=== PATIENT | male | born 1955 | race African-American/Black ===

== ENCOUNTER 2017-05-25 22:52 | Inpatient (IN) | payer OTHER ==
[2017-05-25] MEDS ORDERED: ETOMIDATE 20 MG/10 ML VIAL ONE (23:05)
[2017-05-25 23:09] VITALS: O2SAT 100
[2017-05-25] MEDS ORDERED: ceFAZolin 2 GM PREMIX 50 ML ONE (23:09)
[2017-05-25] MEDS ORDERED: PROPOFOL 1000 MG/100 ML INJ 100 ML ONE (23:18)
[2017-05-25] MEDS ORDERED: MIDAZOLAM HCL 5 MG/ML VIAL (1 ML) ONE (23:24)
[2017-05-25 23:25] LABS: I-STAT POTASSIUM 4.2 MMOL/L (3.5-4.9)
[2017-05-25 23:33] LABS: AUTOMATED NEUTROPHIL # 6.1 TH/MM3 (1.8-7.7); BASOPHIL # 0.1 TH/MM3 (0-0.2); BASOPHIL % 1.1 % (0.0-2.0); EOSINOPHIL # 0.1 TH/MM3 (0-0.4); EOSINOPHIL % 0.6 % (0.0-4.0); HEMATOCRIT 42.8 % (39.0-51.0); LYMPH % 37.4 % (9.0-44.0); LYMPHOCYTE # 4.1 TH/MM3 (1.0-4.8); MEAN CELL VOLUME 93.1 FL (80.0-100.0); MEAN CORPUSCULAR HEMOGLOBIN 32.6 PG (27.0-34.0); MEAN CORPUSCULAR HGB CONC 35.1 % (32.0-36.0); MONO % 5.1 % (0.0-8.0); NEUT % 55.8 % (16.0-70.0); PLATELET COUNT 175 TH/MM3 (150-450); RED CELL DISTRIBUTION WIDTH 14.3 % (11.6-17.2); WHITE BLOOD COUNT 10.9 TH/MM3 (4.0-11.0)
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
[2017-05-25] MEDS ORDERED: IOHEXOL 350 MG/ML 10 ML VIAL (for RAD DIAG) IV ONE (23:36)
[2017-05-25 23:39] LABS: HEMO FLAGS AUTO DIFF
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
[2017-05-25 23:44] LABS: APTT (PATIENT) 22.4 SEC (24.3-30.1); PROTHROMBIN TIME - PATIENT 10.7 SEC (9.8-11.6)
[2017-05-25] MEDS ORDERED: MISCELLANEOUS NURSING INFORMATION XX SCH (23:45)
[2017-05-25] MEDS ORDERED: ENALAPRILAT 1.25 MG/ML VIAL IV PRN (23:45)
[2017-05-25] MEDS ORDERED: CHLORHEXIDINE GLUCONATE 2 % 1 PACK (2 CLOTHS) TOP PRN (23:45)
[2017-05-25] MEDS ORDERED: SODIUM CHLORIDE 0.9% FLUSH 10 ML FLUSH IV FLUSH PRN (23:45)
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
[2017-05-26] VITALS (17 sets, daily range): BP systolic 101–155; BP diastolic 61–78; PULSE 60–123; RESP 16–30; TEMP 97.3–100.9; O2SAT 10–100
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
[2017-05-26 00:13] LABS: PLATELET ESTIMATE SMEAR NORMAL (NORMAL); PLATELET MORPHOLOGY NORMAL (NORMAL); SCAN/DIFF AUTO DIFF CONFIRMED
--- NOTE | 2017-05-26 00:28 | PD.OP ---
Operative Report Date of Surgery: May 25, 2017 Preoperative Diagnosis: Severe traumatic brain injury with small right subdural hemorrhage along with the multiple contusions Postoperative Diagnosis: Same Procedure: Right frontal twist drill hole Marichuy intracranial pressure monitor placement Anesthesia: Local with sedation Surgeon: Trevon Duran M.D. Director Of Retail Marketing(s): None Operation and Findings: Following administration of Diprivan drip with the oxygen saturation and hemodynamic monitoring in the intensive care unit, the right frontal region was shaved and the prep with chlor prep and sterilely draped. Using landmarks of 11 cm behind the nasion and 3 cm to the right of the midline, a 1 cm scalp incision was made after infiltrating with 1% lidocaine with epinephrine solution. With a handheld drill a twist drill hole was made in the underlying dura penetrated with a blunt probe. The Marichuy bolt was then secured to the skull. The fiberoptic catheter zeroed and passed into the subarachnoid space with an opening pressure of 15 mmHg noted. A sterile dressing was applied. There were no complications and blood loss was less than 5 cc. Trevon Duran MD May 26, 2017 00:28
[2017-05-26] MEDS ORDERED: NOREPINEPHRINE 4 MG/4 ML AMP ONE (00:33)
[2017-05-26] MEDS ORDERED: NOREPINEPHRINE-DEXTROSE DRIP 250 ML IV ONE (00:33)
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
[2017-05-26] MEDS ORDERED: levETIRAcetam 1000 MG INJ 100 ML IV ONE (00:45)
[2017-05-26] MEDS ORDERED: TERBUTALINE INJ 1 MG/ML AMP SQ PRN ×2 (00:45→10:15)
[2017-05-26] MEDS ORDERED: MANNITOL INJ 50 ML ONE (01:17)
[2017-05-26] MEDS ORDERED: MIDAZOLAM HCL 5 MG/ML VIAL (1 ML) ONE (01:19)
[2017-05-26] MEDS ORDERED: SODIUM CHLORIDE 23.4% INJ 120 MEQ in SYRINGE/BAG 1 EA IV STA (01:28)
[2017-05-26] MEDS ORDERED: MIDAZOLAM HCL 5 MG/ML VIAL (1 ML) IV STA (01:29)
[2017-05-26] MEDS ORDERED: MANNITOL 12.5 GM/50 ML VIAL IV ONE ×3 (01:30→11:00)
[2017-05-26] MEDS: SODIUM CHLOR 0.9% 1000 ML INJ 1,000 ML IV SCH ×3 (02:00→10:53)
[2017-05-26] MEDS ORDERED: 3% SALINE INJ 500 ML IV ONE (02:00)
[2017-05-26 02:22] LABS: BLOOD GAS BASE EXCESS -4.6 mmol/L (-2-2); BLOOD GAS CARBOXYHEMOGLOBIN 1.9 % (0-4); BLOOD GAS HCO3 22 mmol/L (22-26); BLOOD GAS METHEMOGLOBIN 1.1 % (0-2); BLOOD GAS O2 HGB SATURATION 77 % (90-100); BLOOD GAS OXYGEN CONTENT 11.3 Vol % (12.0-20.0); BLOOD GAS PCO2 52 mmHg (38-42); BLOOD GAS PO2 51 mmHg (61-120); BLOOD GAS TOTAL HGB 10.4 G/DL (12.0-16.0); OXYGEN DEVICE VENTILATOR; TEMP CORR TO 98.6
[2017-05-26 02:23] LABS: DRAW SITE ALINE; FIO2 100 %; STAT YES; ULNAR PULSE PRESENT
[2017-05-26] MEDS ORDERED: SODIUM BICARBONATE 8.4% INJ 50 ML ONE (02:38)
[2017-05-26] MEDS ORDERED: PROPOFOL 1000 MG/100 ML INJ 100 ML ONE (02:40)
[2017-05-26] MEDS ORDERED: GLUCAGON 1 MG/ML VIAL OTHER PRN ×2 (02:45→08:15)
[2017-05-26] MEDS ORDERED: DEXTROSE 50% IN WATER 50 ML VIAL(D50) IV PRN ×2 (02:45→08:15)
--- NOTE | 2017-05-26 02:54 | RADRPT ---
EXAM DATE/TIME: 05/26/2017 01:57 [facility] COMPARISON: CHEST SINGLE AP, May 25, 2017, 22:55. INDICATIONS : Trauma alert patient, closed head injury. Central line placement. MEDICAL HISTORY : None. SURGICAL HISTORY : None. ENCOUNTER: Subsequent ACUITY: 1 week PAIN SCORE: Non-responsive. LOCATION: Bilateral chest FINDINGS: Right subclavian central venous catheter is noted and the tip extends across midline curving inferior ly at the level of the aortic arch. Please confirm venous placement. There degenerative changes of th e spine. Patchy airspace disease at the left lung base noted. Left apical bullous emphysematous terry es are noted. Scapular fracture and left-sided rib fractures are not well visualized. CONCLUSION: 1. Right subclavian central venous catheter is noted as above. Andrae Anderson MD on May 26, 2017 at 2:49 Board Certified Radiologist. This report was verified electronically.
--- NOTE | 2017-05-26 02:59 | PD.PROCEDR ---
Procedure Note Procedure Central line placement A time-out was completed verifying correct patient, procedure, site, positioning , and special equipment if applicable. The patient was placed in a dependent position appropriate for central line placement based on the vein to be cannulated. The patients right shoulder was prepped and draped in sterile fashion. 1% Lidocaine was used to anesthetize the surrounding skin area. A triple lumen 9-[place] Cordis catheter was introduced into the the right subclavian vein using the Seldinger technique. The catheter was threaded smoothly over the guide wire and appropriate blood return was obtained. Each lumen of the catheter was evacuated of air and flushed with sterile saline. The catheter was then sutured in place to the skin and a sterile dressing applied. Perfusion to the extremity distal to the point of catheter insertion was checked and found to be adequate. Estimated Blood Loss: 1ml The patient tolerated the procedure well and there were no complications. Chacho Blue MD May 26, 2017 02:59
[2017-05-26] MEDS ORDERED: NOREPINEPHRINE INJ 4 MG in SODIUM CHLOR 0.9% 250 ML INJ 246 ML IV SCH (03:00)
--- NOTE | 2017-05-26 03:00 | PD.PROCEDR ---
Procedure Note Procedure Arterial line placement A time-out was completed verifying correct patient, procedure, site, positioning , and special equipment if applicable. Allens test was performed to ensure adequate perfusion. The patients right wrist was prepped and draped in sterile fashion. 1% Lidocaine was used to anesthetize the area. A 18G Arrow arterial line was introduced into the radial artery. The catheter was threaded over the guide wire and the needle was removed with appropriate pulsatile blood return. The catheter was then sutured in place to the skin and a sterile dressing applied. Perfusion to the extremity distal to the point of catheter insertion was checked and found to be adequate. Estimated Blood Loss: 1ml The patient tolerated the procedure well and there were no complications. Chacho Blue MD May 26, 2017 03:00
[2017-05-26] MEDS: fentaNYL DRIP 250 ML IV SCH ×3 (03:02→19:08)
[2017-05-26] MEDS: NOREPINEPHRINE INJ 4 MG in SODIUM CHLOR 0.9% 250 ML INJ 246 ML IV SCH ×5 (03:08→20:59)
[2017-05-26] MEDS: CISATRACURIUM INJ 100 MG in SODIUM CHLOR 0.9% 250 ML INJ 240 ML IV SCH ×4 (03:09→20:59)
[2017-05-26] MEDS: VASOPRESSIN INJ 40 UNITS in DEXTROSE 5% IN WATER 100ML INJ 98 ML IV SCH ×4 (03:09→15:17)
[2017-05-26] MEDS: PANTOPRAZOLE SODIUM 40 MG VIAL IVP SCH (03:10)
[2017-05-26 03:57] LABS: AUTOMATED NEUTROPHIL # 12.1 TH/MM3 (1.8-7.7); BASOPHIL # 0.1 TH/MM3 (0-0.2); BASOPHIL % 0.7 % (0.0-2.0); EOSINOPHIL % 0.1 % (0.0-4.0); HEMATOCRIT 30.8 % (39.0-51.0); HEMO FLAGS DIFF FINAL; LYMPH % 7.7 % (9.0-44.0); LYMPHOCYTE # 1.1 TH/MM3 (1.0-4.8); MEAN CORPUSCULAR HEMOGLOBIN 30.9 PG (27.0-34.0); MEAN CORPUSCULAR HGB CONC 33.6 % (32.0-36.0); MONO % 4.6 % (0.0-8.0); NEUT % 86.9 % (16.0-70.0); PLATELET COUNT 106 TH/MM3 (150-450); RED BLOOD COUNT 3.34 MIL/MM3 (4.50-5.90); RED CELL DISTRIBUTION WIDTH 13.9 % (11.6-17.2); WHITE BLOOD COUNT 13.9 TH/MM3 (4.0-11.0)
[2017-05-26 03:59] LABS: CRITICAL VALUE YES; VENT SETTINGS PRVC24/550/0.9/+8
[2017-05-26] MEDS: CHLORHEXIDINE GLUCONATE 2 % 1 PACK (2 CLOTHS) TOP SCH (04:00)
[2017-05-26 04:23] LABS: AMPHETAMINE, URINE NEG (NEG); BARBITURATES, URINE NEG (NEG); COCAINE, URINE POS (NEG)
[2017-05-26 04:35] LABS: BICARBONATE 24.1 MEQ/L (21.0-32.0); CALCIUM-PROTEIN CORRECTED 7.8 MG/DL (8.5-10.1); POTASSIUM 4.3 MEQ/L (3.5-5.1); TOTAL BILIRUBIN ADULT 0.6 MG/DL (0.2-1.0)
[2017-05-26 05:22] LABS: BLOOD GAS BASE EXCESS -1.9 mmol/L (-2-2); BLOOD GAS CARBOXYHEMOGLOBIN 1.2 % (0-4); BLOOD GAS HCO3 21 mmol/L (22-26); BLOOD GAS O2 HGB SATURATION 98 % (90-100); BLOOD GAS OXYGEN CONTENT 14.9 Vol % (12.0-20.0); BLOOD GAS PCO2 27 mmHg (38-42); BLOOD GAS PO2 436 mmHg (61-120); TEMP CORR TO 98.6
[2017-05-26 05:23] LABS: CRITICAL VALUE NO; OXYGEN DEVICE VENTILATOR
[2017-05-26 05:24] LABS: DRAW SITE ART LINE; FIO2 100 %; STAT NO; VENT SETTINGS AC 30/600/8PEEP
[2017-05-26] MEDS ORDERED: INSULIN ASPART SUPPLEMENTAL SCALE SQ SCH (07:00)
[2017-05-26] MEDS: PROPOFOL 1000 MG/100 ML IV SCH ×4 (07:02→19:07)
--- NOTE | 2017-05-26 07:55 | PD.ORT.PN ---
Subjective Subjective Remarks 1. Closed left severely comminuted tibia and fibula fractures 2. Extensive displaced and comminuted left scapular fractures 3. Multiple left-sided rib fractures 4. Left T7 transverse process fracture on the left: 5. Fracture through the left occipital condyle and occiput. Left C2 and C7 lateral mass nondisplaced fracture 6. Right sacral fracture with diastasis of the SI joint on the right as well as the pubic symphysis 7. Left L2 and L3 transverse process fractures Pt intubated and sedated. Plan of care discussed in detail with RN. RN reports multiple fluctuations in ICP overnight. Objective Vitals Vital Signs Date Time Temp Pulse Resp B/P Pulse Ox O2 Delivery O2 Flow Rate FiO2 05/26/17 02:51 100 100 05/26/17 00:02 100 100 05/25/17 23:09 100 15.00 100 Result Diagram: 05/26/17 0340 05/26/17 0340 Other Results Laboratory Tests Test 05/25/17 23:06 Prothrombin Time 10.7 SEC (9.8-11.6) Prothromb Time International 1.0 RATIO Ratio Imaging Last Impressions Chest X-Ray 05/26/17 0000 Signed Impressions: Service Date/Time: Friday, May 26, 2017 01:57 - CONCLUSION: 1. Right subclavian central venous catheter is noted as above. Andrae Anderson MD Pelvis X-Ray 05/25/172317 Signed Impressions: Service Date/Time: Thursday, May 25, 2017 22:55 - CONCLUSION: No discrete fracture lucencies. Andrae Anderson MD Head CT 05/25/172317 Signed Impressions: Service Date/Time: Thursday, May 25, 2017 23:25 - CONCLUSION: 1. Intraparenchymal, and extra-axial hemorrhage as described above with slight midline shift. 2. Skull fractures. 3. Left mastoid fluid. 4. Scalp laceration. Andrae Anderson MD Chest CT 05/25/172317 Signed Impressions: Service Date/Time: Thursday, May 25, 2017 23:35 - CONCLUSION: 1. Severe emphysematous changes are noted with bullous emphysematous disease in the upper lobes left greater than right. 2. Patchy pulmonary contusion is suspected. 3. Nonobstructing left renal calculi and bilateral renal cysts. 4. Extensive displaced and comminuted left scapular fractures as well as multiple left- sided rib fractures and T7 transverse process fracture on the left. Andrae Anderson MD Cervical Spine CT 05/25/172317 Signed Impressions: Service Date/Time: Thursday, May 25, 2017 23:26 - CONCLUSION: 1. Fracture through the left occipital condyle and occiput. 2. Left C2 lateral mass nondisplaced fracture. 3. Left sided C7 fractures as described above. Andrae Anderson MD Abdomen/Pelvis CT 05/25/172317 Signed Impressions: Service Date/Time: Thursday, May 25, 2017 23:32 - CONCLUSION: 1. Bilateral renal cysts and nonobstructing left renal calculi. 2. Minimal basilar parenchymal infiltrates at the lung bases. 3. Splenic atrophy. 4. Left L2 and L3 transverse process fractures. 5. Right sacral fracture with diastasis of the SI joint on the right as well as the pubic symphysis. Andrae Anderson MD Tibia/Fibula X-Ray 05/25/17 0000 Signed Impressions: Service Date/Time: Thursday, May 25, 2017 22:55 - CONCLUSION: Heavily comminuted and displaced fractures of the tibia and fibula. Andrae Anderson MD Objective Remarks LLE: In splint and dressing. Swelling and crepitus noted over faria/calf. Calf is soft. Soft tissue edematous,1+. Pedal pulses palpable. Good cap refill. Skin temperature equivocal bilaterally. B/L UE: Warm, good cap refill, no specific areas of swelling noted. Neuro exam unobtainable. Intubated and sedated. Assessment & Plan Problem List: (1) Traumatic closed displaced fracture of shaft of left tibia and fibula (2) Subarachnoid hemorrhage (3) Closed head injury (4) C2 cervical fracture (5) C7 cervical fracture (6) T7 vertebral fracture (7) Traumatic diastasis of symphysis pubis (8) Fracture of left occipital condyle (9) Left scapula fracture (10) Sacral fracture (11) Fracture of occiput (12) Ribs, multiple fractures (13) L2 vertebral fracture (14) L3 vertebral fracture Assessment and Plan 1. Closed left severely comminuted tibia and fibula fractures: It it recommended to proceed forward with surgical management of heavily comminuted left tibia and fibula fractures once medically cleared. This will require surgical management of possible internal versus external fixation. Risks of awaiting surgical management include but are not limited to compartment syndrome, neurovascular compromise and loss of limb. Close monitoring of his lower extremity perfusion and swelling is recommended. Further disposition will be rendered upon completion of the trauma and neuro clearance. 2. Extensive displaced and comminuted left scapular fractures: Non w/b LUE. May consider further imaging once pt stable. Does not appear to involve glenohumeral joint. Non operative at this time. 3. Multiple left-sided rib fractures: Non operative treatment at this time. 4. Left T7 transverse process fracture on the left: Non operative treatment at this time 5. Fracture through the left occipital condyle and occiput. Left C2 and C7 lateral mass nondisplaced fracture: Keep C collar on at all times. 6. Right sacral fracture with diastasis of the SI joint on the right as well as the pubic symphysis: Non operative treatment at this time. 7. Left L2 and L3 transverse process fractures: Non operative treatment at this time. Reyna Jurado May 26, 2017 07:55
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
[2017-05-26] MEDS ORDERED: IOHEXOL 350 MG/ML 10 ML VIAL (for RAD DIAG) IV ONE (08:43)
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
[2017-05-26] MEDS: ARTIFICIAL TEARS OPTH SOLN 15 ML BTL EACH EYE SCH ×3 (09:00→17:29)
[2017-05-26] MEDS ORDERED: CALCIUM GLUCONATE INJ 2 GM in SODIUM CHLORIDE 0.9% INJ 100 ML IV ONE (09:00)
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
[2017-05-26] MEDS: levETIRAcetam INJ 500 MG in SODIUM CHLORIDE 0.9% INJ 100 ML IV SCH ×2 (09:42→20:42)
[2017-05-26] MEDS: MULTIVITAMIN INJ 10 ML, FOLIC ACID INJ 1 MG in SODIUM CHLORID 0.9% 500 ML INJ 500 ML IV SCH (09:44)
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
[2017-05-26] MEDS ORDERED: PHENYLEPHRINE INJ 80 MG in DEXTROSE 5% IN WATE 500 ML INJ 492 ML IV SCH ×2 (11:00)
[2017-05-26] MEDS: PHENYLEPHRINE INJ 80 MG in SODIUM CHLORID 0.9% 500 ML INJ 492 ML IV SCH ×2 (11:13→20:58)
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
[2017-05-26] MEDS: INSULIN ASPART SUPPLEMENTAL SCALE SQ SCH ×3 (12:06→21:16)
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
[2017-05-26] MEDS: BACITRACIN/POLYMYXIN B 15 GM TUBE TOPICAL SCH ×2 (13:12→21:17)
--- NOTE | 2017-05-26 16:13 | OTSOAPIP ---
TIME SESSION COMPLETED: AM TREATMENT TIME: 0 MINS. CHART REVIEWED. CLINICAL HISTORY: PATIENT IS A 62 Y/O Male REFERRED TO OCCUPATIONAL THERAPY WITH A DIAGNOSIS OF CLOSED HEAD INJURY, LEFT TIB-FIB FRACTURE, TRAUMA,. PATIENT SUSTAINED THE FOLLOWING; * INTRAPARENCHYMAL AND EXTRA AXIAL HEMORRHAGE WITH SLIGHT SHIFT * FRACTURE THROUGH THE LEFT OCCIPITAL CONDYLE AND OCCIPITAL * SKULL FRACTURE * LEFT MASTOID FLUID * SCALP LACERATION S/P REPAIR * LEFT DISPLACED SCAPULAR FRACTURE * LEFT C2 & C7 FRACTURES CERVICAL COLLAR PLACEMENT * T7 TRANSVERSE PROCESS FRACTURE ON THE LEFT * L2 & L3 TRANSVERSE PROCESS FRACTURES * LEFT DISPLACED TIBIA & FIBULA FRACTURES * BILATERAL RENAL CYSTS AND NON-OBSTRUCTING LEFT RENAL CALCUL * LEFT SIDED PNEUMOTHROAX VERSUS BOLLOUS EMPHYSEMATOUS DISEASE * SPLENIC ATROPHY PHYSICIAN ORDER STATES: OCCUPATIONAL THERAPY EVALUATE AND TREAT. SURGERY ON THIS ADMISSION: * 05/25/17 RIGHT FRONTAL TWIST DRILL HOLE WITH PLACEMENT OF INTRACRANIAL PRESSURE MONITOR INTERDISCIPLINARY COMMUNICATION: SPOKE WITH NURSING REQUESTED TO HOLD TREATMENT DUE TO INCREASE ICP LEVELS PLAN: WILL SEE PATIENT NEXT TREATMENT DAY Therapist: SURESH CASTELLANOS Signature on file
[2017-05-26] MEDS: 3% SALINE INJ 500 ML IV SCH (17:27)
[2017-05-26] MEDS: DOCUSATE SODIUM 100 MG CAP PO SCH (20:42)
[2017-05-26] MEDS: MAGNESIUM HYDROXIDE SUSP 30 ML CUP PO SCH (20:42)
[2017-05-26 20:45] LABS: BLOOD GAS HCO3 20 mmol/L (22-26); BLOOD GAS METHEMOGLOBIN 0.8 % (0-2); BLOOD GAS O2 HGB SATURATION 98 % (90-100); BLOOD GAS OXYGEN CONTENT 12.5 Vol % (12.0-20.0); BLOOD GAS PCO2 31 mmHg (38-42); BLOOD GAS PO2 167 mmHg (61-120); BLOOD GAS TOTAL HGB 8.9 G/DL (12.0-16.0); CRITICAL VALUE NO; OXYGEN DEVICE VENTILATOR; TEMP CORR TO 98.6
[2017-05-26 20:46] LABS: DRAW SITE ALINE; FIO2 45 %; STAT NO; ULNAR PULSE PRESENT; VENT SETTINGS PRVC22/600/0.9/+8
[2017-05-26] MEDS: CHLORHEXIDINE 0.12% (ORAL KIT) 15 ML CUP MT SCH (20:51)
[2017-05-27] VITALS (18 sets, daily range): BP systolic 114–153; BP diastolic 61–79; PULSE 61–89; RESP 20–22; TEMP 94.8–97.7; O2SAT 100
[2017-05-27] MEDS: PROPOFOL 1000 MG/100 ML IV SCH ×5 (00:35→14:56)
[2017-05-27] MEDS: PANTOPRAZOLE SODIUM 40 MG VIAL IVP SCH ×2 (00:35→23:16)
[2017-05-27] MEDS: CISATRACURIUM INJ 100 MG in SODIUM CHLOR 0.9% 250 ML INJ 240 ML IV SCH ×7 (01:14→22:56)
--- NOTE | 2017-05-27 04:20 | RADRPT ---
EXAM DATE/TIME: 05/27/2017 03:40 [facility] COMPARISON: CHEST SINGLE AP, May 26, 2017, 1:57. INDICATIONS : Respiratory failure post head injury. MEDICAL HISTORY : None. SURGICAL HISTORY : None. ENCOUNTER: Subsequent ACUITY: 1 week PAIN SCORE: Non-responsive. LOCATION: Bilateral chest FINDINGS: Endotracheal tube and NG tube identified. There is consolidation in left lower lobe and small bilater al effusions are suspected. Bullous emphysematous changes of the left greater than right upper lobe n oted. Right subclavian central venous catheter tip extends to the left of midline directed cephalad. CONCLUSION: The right subclavian catheter tip is now directed cephalad otherwise the findings exam are stable fro m previous. Andrae Anderson MD on May 27, 2017 at 4:17 Board Certified Radiologist. This report was verified electronically.
[2017-05-27] MEDS: fentaNYL DRIP 250 ML IV SCH ×3 (04:36→23:16)
[2017-05-27] MEDS: NOREPINEPHRINE INJ 4 MG in SODIUM CHLOR 0.9% 250 ML INJ 246 ML IV SCH ×3 (04:37→19:37)
[2017-05-27] MEDS: CHLORHEXIDINE GLUCONATE 2 % 1 PACK (2 CLOTHS) TOP SCH (04:38)
[2017-05-27] MEDS: 3% SALINE INJ 500 ML IV SCH (04:40)
[2017-05-27 05:23] LABS: BLOOD GAS BASE EXCESS -2.6 mmol/L (-2-2); BLOOD GAS HCO3 21 mmol/L (22-26); BLOOD GAS METHEMOGLOBIN 0.8 % (0-2); BLOOD GAS O2 HGB SATURATION 98 % (90-100); BLOOD GAS OXYGEN CONTENT 11.9 Vol % (12.0-20.0); BLOOD GAS PCO2 34 mmHg (38-42); BLOOD GAS PO2 155 mmHg (61-120); BLOOD GAS TOTAL HGB 8.5 G/DL (12.0-16.0); TEMP CORR TO 98.6
[2017-05-27 05:24] LABS: CRITICAL VALUE NO; DRAW SITE ART LINE; FIO2 45 %; OXYGEN DEVICE VENTILATOR; STAT NO; VENT SETTINGS PCV VG
[2017-05-27 05:29] LABS: AUTOMATED NEUTROPHIL # 8.4 TH/MM3 (1.8-7.7); BASOPHIL # 0.1 TH/MM3 (0-0.2); BASOPHIL % 0.6 % (0.0-2.0); EOSINOPHIL % 0.3 % (0.0-4.0); HEMATOCRIT 24.6 % (39.0-51.0); HEMO FLAGS DIFF FINAL; LYMPH % 11.2 % (9.0-44.0); LYMPHOCYTE # 1.1 TH/MM3 (1.0-4.8); MEAN CELL VOLUME 91.5 FL (80.0-100.0); MEAN CORPUSCULAR HEMOGLOBIN 31.8 PG (27.0-34.0); MEAN CORPUSCULAR HGB CONC 34.8 % (32.0-36.0); MONO % 4.9 % (0.0-8.0); PLATELET COUNT 100 TH/MM3 (150-450); RED BLOOD COUNT 2.69 MIL/MM3 (4.50-5.90); RED CELL DISTRIBUTION WIDTH 14.7 % (11.6-17.2); WHITE BLOOD COUNT 10.1 TH/MM3 (4.0-11.0)
[2017-05-27 05:37] LABS: BICARBONATE 21.5 MEQ/L (21.0-32.0); CALCIUM-PROTEIN CORRECTED 7.9 MG/DL (8.5-10.1); MAGNESIUM 1.6 MG/DL (1.5-2.5); POTASSIUM 3.4 MEQ/L (3.5-5.1); TOTAL BILIRUBIN ADULT 0.3 MG/DL (0.2-1.0)
[2017-05-27] MEDS: VASOPRESSIN INJ 40 UNITS in DEXTROSE 5% IN WATER 100ML INJ 98 ML IV SCH ×2 (06:22)
[2017-05-27] MEDS: INSULIN ASPART SUPPLEMENTAL SCALE SQ SCH ×4 (07:00→21:56)
--- NOTE | 2017-05-27 07:04 | HHI.NSPN ---
(Jose G Garner) History Chief Complaint: Severe TBI. 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 ICP currently 5. Pt has not gone for a follow up CT head. 05/27: Pt sedated on Diprivan, Fentanyl, and Nimbex. ICPs 13 via zuri bolt. Pt on Federico, Levo, and Vaso pressor drips. Intubated. [place] J collar remains in place. (Jose G Garner) System Review Comments Not able to obtain given level of alertness. (Jose G Garner) Exam Results Vital Signs Date Time Temp Pulse Resp B/P Pulse Ox O2 Delivery O2 Flow Rate FiO2 05/27/17 06:00 65 05/27/17 04:00 45 05/27/17 04:00 96.8 20 146/71 100 05/26/17 19:00 Mechanical Ventilator 05/25/17 23:09 15.00 Intake and Output 05/26/17 05/26/17 05/27/17 08:00 16:00 00:00 Intake Total 5532 ml 3303 ml 2817 ml Output Total 1850 ml 1350 ml 550 ml Balance 3682 ml 1953 ml 2267 ml (Jose G Garner) Physical Examination Resp: CTA bilaterally. Intubated. Pressure controlled. Rate 20. Peep 5. FiO2 45% Heart NSR no murmurs Abd: Soft positive bs Skin: No cyanosis or erythema. LLE splinted and bandaged. Head is bandaged and bloody with report of a scalp avulsion injury. Muscle: Pt heavily sedated not able to obtain. No response to deep pain in upper chest. Neuro: Pt sedated on Diprivan, Fentanyl, and Nimbex drips. Not opening eyes or following commands. Pupils 2mm bilaterally NR bilaterally. [place] bolt in place ICP 13. No response to pain but sedated heavily. 3% NaCl. (Jose G Garner) Lab, Micro, Other Results Last Impressions Chest X-Ray 05/27/17 0600 Signed Impressions: Service Date/Time: Saturday, May 27, 2017 03:40 - CONCLUSION: The right subclavian catheter tip is now directed cephalad otherwise the findings exam are stable from previous. Andrae Anderson MD Head CT 05/26/17 06 Signed Impressions: Service Date/Time: Friday, May 26, 2017 08:25 - CONCLUSION: Severe traumatic brain injury with increasing parenchymal hemorrhage in the right frontal lobe but otherwise stable previously described hemorrhages. Stable mild right to left midline shift. Developing cerebral edema in the cerebellum adnexa the lobes. Opacified left middle ear from left occipital/basilar skull fracture Intracranial pressure monitor identified in the right frontal region. James Blood MD Neck CTA 05/26/17 0000 Signed Impressions: Service Date/Time: Friday, May 26, 2017 08:25 - CONCLUSION: No evidence of acute vascular injury, intimal dissection, aneurysm or restricted flow. James Blood MD Pelvis X-Ray 05/25/172317 Signed Impressions: Service Date/Time: Thursday, May 25, 2017 22:55 - CONCLUSION: No discrete fracture lucencies. Andrae Anderson MD Chest CT 05/25/172317 Signed Impressions: Service Date/Time: Thursday, May 25, 2017 23:35 - CONCLUSION: 1. Severe emphysematous changes are noted with bullous emphysematous disease in the upper lobes left greater than right. 2. Patchy pulmonary contusion is suspected. 3. Nonobstructing left renal calculi and bilateral renal cysts. 4. Extensive displaced and comminuted left scapular fractures as well as multiple left- sided rib fractures and T7 transverse process fracture on the left. Andrae Anderson MD Cervical Spine CT 05/25/172317 Signed Impressions: Service Date/Time: Thursday, May 25, 2017 23:26 - CONCLUSION: 1. Fracture through the left occipital condyle and occiput. 2. Left C2 lateral mass nondisplaced fracture. 3. Left sided C7 fractures as described above. Andrae Anderson MD Abdomen/Pelvis CT 05/25/172317 Signed Impressions: Service Date/Time: Thursday, May 25, 2017 23:32 - CONCLUSION: 1. Bilateral renal cysts and nonobstructing left renal calculi. 2. Minimal basilar parenchymal infiltrates at the lung bases. 3. Splenic atrophy. 4. Left L2 and L3 transverse process fractures. 5. Right sacral fracture with diastasis of the SI joint on the right as well as the pubic symphysis. Andrae Anderson MD Tibia/Fibula X-Ray 05/25/17 0000 Signed Impressions: Service Date/Time: Thursday, May 25, 2017 22:55 - CONCLUSION: Heavily comminuted and displaced fractures of the tibia and fibula. Andrae Anderson MD Laboratory Tests Test 05/26/17 05/26/17 05/26/17 05/26/17 10:32 15:49 20:30 22:00 Sodium Level 150 MEQ/L 151 MEQ/L 151 MEQ/L Serum Osmolality 316 MOSM/KG 313 MOSM/KG 312 MOSM/KG Blood Gas Puncture Site RADHA Blood Gas Patient Temperature 98.6 Blood Gas HCO3 20 mmol/L Blood Gas Base Excess -4.0 mmol/L Blood Gas Oxygen Saturation 98 % Arterial Blood pH 7.43 Arterial Blood Partial 31 mmHg Pressure CO2 Arterial Blood Partial 167 mmHg Pressure O2 Arterial Blood Oxygen Content 12.5 Vol % Arterial Blood 1.0 % Carboxyhemoglobin Arterial Blood Methemoglobin 0.8 % Blood Gas Hemoglobin 8.9 G/DL Oxygen Delivery Device VENTILATOR Blood Gas Ventilator Setting PRVC22/600/0.9/+8 Blood Gas Inspired Oxygen 45 % Test 05/27/17 05/27/17 05:02 05:10 White Blood Count 10.1 TH/MM3 Red Blood Count 2.69 MIL/MM3 Hemoglobin 8.6 GM/DL Hematocrit 24.6 % Mean Corpuscular Volume 91.5 FL Mean Corpuscular Hemoglobin 31.8 PG Mean Corpuscular Hemoglobin 34.8 % Concent Red Cell Distribution Width 14.7 % Platelet Count 100 TH/MM3 Mean Platelet Volume 8.8 FL Neutrophils (%) (Auto) 83.0 % Lymphocytes (%) (Auto) 11.2 % Monocytes (%) (Auto) 4.9 % Eosinophils (%) (Auto) 0.3 % Basophils (%) (Auto) 0.6 % Neutrophils # (Auto) 8.4 TH/MM3 Lymphocytes # (Auto) 1.1 TH/MM3 Monocytes # (Auto) 0.5 TH/MM3 Eosinophils # (Auto) 0.0 TH/MM3 Basophils # (Auto) 0.1 TH/MM3 CBC Comment DIFF FINAL Differential Comment Sodium Level 153 MEQ/L Potassium Level 3.4 MEQ/L Chloride Level 124 MEQ/L Carbon Dioxide Level 21.5 MEQ/L Anion Gap 8 MEQ/L Blood Urea Nitrogen 9 MG/DL Creatinine 0.48 MG/DL Estimat Glomerular Filtration 215 ML/MIN Rate Random Glucose 145 MG/DL Serum Osmolality 311 MOSM/KG Calcium Level 6.5 MG/DL Protein Corrected Calcium 7.9 MG/DL Phosphorus Level 1.8 MG/DL Magnesium Level 1.6 MG/DL Total Bilirubin 0.3 MG/DL Aspartate Amino Transf 92 U/L (AST/SGOT) Alanine Aminotransferase 45 U/L (ALT/SGPT) Alkaline Phosphatase 35 U/L Total Protein 4.3 GM/DL Albumin 1.9 GM/DL Blood Gas Puncture Site ART LINE Blood Gas Patient Temperature 98.6 Blood Gas HCO3 21 mmol/L Blood Gas Base Excess -2.6 mmol/L Blood Gas Oxygen Saturation 98 % Arterial Blood pH 7.41 Arterial Blood Partial 34 mmHg Pressure CO2 Arterial Blood Partial 155 mmHg Pressure O2 Arterial Blood Oxygen Content 11.9 Vol % Arterial Blood 1.0 % Carboxyhemoglobin Arterial Blood Methemoglobin 0.8 % Blood Gas Hemoglobin 8.5 G/DL Oxygen Delivery Device VENTILATOR Blood Gas Ventilator Setting PCV VG Blood Gas Inspired Oxygen 45 % 05/26/17 05/26/17 05/27/17 15:00 23:00 07:00 Intake Total 3303 ml 2817 ml 2540 ml Output Total 1350 ml 550 ml 650 ml Balance 1953 ml 2267 ml 1890 ml Intake IV Total 3303 ml 2817 ml 2540 ml Output Urine Total 1300 ml 550 ml 550 ml Stool Total 0 ml 0 ml 0 ml Gastric Drainage Total 50 ml 0 ml 100 ml (Jose G Garner) Medical Decision Making Impression and Plan A: 62 y/o M with severe TBI with small right SDH and multiple cerebral contusions. ICPs currently controlled but required Diprivan, Fentanyl, and Nimbex drips as well as NaCl 3%. Follow up CT head revealed increasing parenchymal hemorrhage in the right frontal lobe. Opacified left middle ear from left occipital/ basilar skull fracture. Developing cerebral edema in the cerebellum adnexa lobes. P: Pts orthopedic surgery placed on hold yesterday given his severe TBI and follow up CT findings. continue with ICP monitor and control with sedation with Diprivan, Fentanyl , and Nimbex drips. continue with close neuro checks Continue with 3% NaCl. (Jose G Garner) Attending Statement The exam, history, and the medical decision-making described in the above note were completed with the assistance of the mid-level provider. I reviewed and agree with the findings presented. I attest that I had a [id number] encounter with the patient on the same day, and personally performed and documented my assessment and findings in the medical record. ICPs are controlled with the current regimen involving propofol, fentanyl, Nimbex car coupler along with vasopressor support. Pupils are equal but that cannot perform neurologic exam because a muscle paralytics. Continue with ICP control measures. (Trevon Duran MD) Jose G Garner May 27, 2017 07:04 Trevon Duran MD May 27, 2017 11:22
[2017-05-27] MEDS: MULTIVITAMIN INJ 10 ML, FOLIC ACID INJ 1 MG in SODIUM CHLORID 0.9% 500 ML INJ 500 ML IV SCH (08:41)
[2017-05-27] MEDS: levETIRAcetam INJ 500 MG in SODIUM CHLORIDE 0.9% INJ 100 ML IV SCH ×2 (08:41→21:57)
[2017-05-27] MEDS: BACITRACIN/POLYMYXIN B 15 GM TUBE TOPICAL SCH ×2 (08:42→21:58)
[2017-05-27] MEDS: DOCUSATE SODIUM 100 MG CAP PO SCH ×2 (08:42→21:57)
[2017-05-27] MEDS: ARTIFICIAL TEARS OPTH SOLN 15 ML BTL EACH EYE SCH (08:42)
[2017-05-27] MEDS: CHLORHEXIDINE 0.12% (ORAL KIT) 15 ML CUP MT SCH ×2 (08:42→21:58)
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
[2017-05-27] MEDS ORDERED: POTASSIUM PHOSPHATE MONOBASIC 500 MG TAB PO/TUBE PRN (09:30)
[2017-05-27] MEDS ORDERED: POTASSIUM CHLORIDE 25 MEQ EFFERVESCENT TAB PO PRN (09:30)
[2017-05-27] MEDS ORDERED: MAGNESIUM OXIDE 400 MG TAB PO PRN (09:30)
[2017-05-27] MEDS ORDERED: MAGNESIUM SULFATE INJ 2 GM in SODIUM CHLORIDE 0.9% INJ 96 ML IV PRN (09:30)
[2017-05-27] MEDS ORDERED: POTASSIUM PHOSPHATE MONOBASIC 500 MG TAB PO PRN (09:30)
[2017-05-27] MEDS ORDERED: SODIUM PHOSPHATE INJ 30 MMOL in SODIUM CHLOR 0.9% 250 ML INJ 240 ML IV PRN (09:30)
[2017-05-27] MEDS ORDERED: POTASSIUM CHLOR 20 MEQ PREMIX 100 ML IV PRN ×2 (09:30)
[2017-05-27] MEDS ORDERED: MAGNESIUM SULFATE INJ 4 GM in SODIUM CHLORIDE 0.9% INJ 92 ML IV PRN (09:30)
[2017-05-27] MEDS: SODIUM CHLOR 0.9% 1000 ML INJ 1,000 ML IV SCH (09:31)
[2017-05-27] MEDS ORDERED: CALCIUM GLUCONATE INJ 2 GM in SODIUM CHLORIDE 0.9% INJ 100 ML IV ONE (10:00)
[2017-05-27] MEDS: POTASSIUM PHOSPHATE INJ 30 MMOL in SODIUM CHLOR 0.9% 250 ML INJ 250 ML IV PRN ×2 (10:07→23:42)
[2017-05-27] MEDS: ARTIFICIAL TEARS OPTH OINT 3.5 APPLIC/3.5 GM TUBO EACH EYE SCH ×2 (13:00→18:04)
--- NOTE | 2017-05-27 13:18 | PD.ORT.PN ---
Subjective Subjective Remarks Patient is intubated and sedated. He is about to undergo a ventriculostomy at the bedside per Dr. Duran. There have been no reported problems with regards to the left lower extremity. He has been perfusing the extremity. Objective Vitals Vital Signs Date Time Temp Pulse Resp B/P Pulse Ox O2 Delivery O2 Flow Rate FiO2 05/27/17 10:00 68 05/27/17 08:06 100 40 05/27/17 08:00 66 05/27/17 08:00 97.7 66 20 153/68 100 05/27/17 08:00 45 05/27/17 07:00 100 Mechanical Ventilator 45 05/27/17 06:00 65 05/27/17 04:00 45 05/27/17 04:00 96.8 65 20 146/71 100 05/27/17 04:00 65 05/27/17 03:56 100 45 05/27/17 02:00 63 05/27/17 00:46 100 45 05/27/17 00:46 100 45 05/27/17 00:00 61 05/27/17 00:00 96.8 61 22 153/69 100 05/27/17 00:00 45 05/26/17 22:00 60 05/26/17 21:00 45 05/26/17 20:22 100 45 05/26/17 20:00 64 05/26/17 20:00 97.3 64 24 135/78 100 147/68 05/26/17 20:00 45 05/26/17 19:00 100 Mechanical Ventilator 45 05/26/17 18:00 65 05/26/17 17:34 100 45 05/26/17 17:28 10 45 05/26/17 16:00 98.1 66 24 143/69 100 05/26/17 16:00 66 05/26/17 16:00 100 05/26/17 14:00 75 I/O 05/26/17 05/26/17 05/26/17 05/27/17 05/27/17 05/27/17 06:59 14:59 22:59 06:59 14:59 22:59 Intake Total 5532 ml 3303 ml 2817 ml 2540 ml Output Total 1850 ml 1350 ml 550 ml 650 ml Balance 3682 ml 1953 ml 2267 ml 1890 ml Intake IV Total 5032 ml 3303 ml 2817 ml 2540 ml Packed Cells 500 ml Output Urine Total 1700 ml 1300 ml 550 ml 550 ml Stool Total 0 ml 0 ml 0 ml 0 ml Gastric Drainage Total 150 ml 50 ml 0 ml 100 ml Result Diagram: 05/27/17 0502 05/27/17 1015 Imaging Last Impressions Chest X-Ray 05/26/17 0000 Signed Impressions: Service Date/Time: Friday, May 26, 2017 01:57 - CONCLUSION: 1. Right subclavian central venous catheter is noted as above. Andrae Anderson MD Pelvis X-Ray 05/25/172317 Signed Impressions: Service Date/Time: Thursday, May 25, 2017 22:55 - CONCLUSION: No discrete fracture lucencies. Andrae Anderson MD Head CT 05/25/172317 Signed Impressions: Service Date/Time: Thursday, May 25, 2017 23:25 - CONCLUSION: 1. Intraparenchymal, and extra-axial hemorrhage as described above with slight midline shift. 2. Skull fractures. 3. Left mastoid fluid. 4. Scalp laceration. Andrae Anderson MD Chest CT 05/25/172317 Signed Impressions: Service Date/Time: Thursday, May 25, 2017 23:35 - CONCLUSION: 1. Severe emphysematous changes are noted with bullous emphysematous disease in the upper lobes left greater than right. 2. Patchy pulmonary contusion is suspected. 3. Nonobstructing left renal calculi and bilateral renal cysts. 4. Extensive displaced and comminuted left scapular fractures as well as multiple left- sided rib fractures and T7 transverse process fracture on the left. Andrae Anderson MD Cervical Spine CT 05/25/172317 Signed Impressions: Service Date/Time: Thursday, May 25, 2017 23:26 - CONCLUSION: 1. Fracture through the left occipital condyle and occiput. 2. Left C2 lateral mass nondisplaced fracture. 3. Left sided C7 fractures as described above. Andrae Anderson MD Abdomen/Pelvis CT 05/25/172317 Signed Impressions: Service Date/Time: Thursday, May 25, 2017 23:32 - CONCLUSION: 1. Bilateral renal cysts and nonobstructing left renal calculi. 2. Minimal basilar parenchymal infiltrates at the lung bases. 3. Splenic atrophy. 4. Left L2 and L3 transverse process fractures. 5. Right sacral fracture with diastasis of the SI joint on the right as well as the pubic symphysis. Andrae Anderson MD Tibia/Fibula X-Ray 05/25/17 0000 Signed Impressions: Service Date/Time: Thursday, May 25, 2017 22:55 - CONCLUSION: Heavily comminuted and displaced fractures of the tibia and fibula. Andrae Anderson MD Objective Remarks LLE: In splint and dressing. The dressing was removed. There is moderate swelling. Compartments soft to palpation. Soft tissue edematous,1+. Pedal pulses palpable. Good cap refill. Skin temperature equivocal bilaterally. Small abrasion superficial over the anterior tibial region. Assessment & Plan Problem List: (1) Traumatic closed displaced fracture of shaft of left tibia and fibula (2) Subarachnoid hemorrhage (3) Closed head injury (4) C2 cervical fracture (5) C7 cervical fracture (6) T7 vertebral fracture (7) Traumatic diastasis of symphysis pubis (8) Fracture of left occipital condyle (9) Left scapula fracture (10) Sacral fracture (11) Fracture of occiput (12) Ribs, multiple fractures (13) L2 vertebral fracture (14) L3 vertebral fracture Assessment and Plan Findings were discussed with the nurse and Dr. Duran. He currently is not cleared from a neurosurgical standpoint for any type of surgical intervention. Once cleared for surgery would benefit from internal fixation of the left tibia. Further workup of his other fractures may also be indicated. Patient may be transferred to the care of depending on his availability. Further disposition will be rendered upon completion of the above. Edmund Romo MD May 27, 2017 13:18
--- NOTE | 2017-05-27 13:34 | PD.OP ---
Operative Report Date of Surgery: May 27, 2017 Preoperative Diagnosis: Severe traumatic brain injury with intracranial hypertension Postoperative Diagnosis: Same Procedure: Left frontal twist drill hole ventriculostomy placement Anesthesia: Local with sedation Surgeon: Trevon Duran M.D. Manager Statistical Programming(s): None Operation and Findings: Informed consent was obtained from the patient's and also discussed with his sister at bedside. Following continuation of Diprivan, fentanyl, Nimbex and Versed drips with the oxygen saturation and hemodynamic monitoring in the intensive care unit, the left frontal region was shaved and the prep with chlor prep and sterilely draped. Using landmarks of 11 cm behind the nasion and 3 cm to the right of the midline, a 1 cm scalp incision was made after infiltrating with 1% lidocaine with epinephrine solution. With a handheld drill a twist drill hole was made in the underlying dura penetrated with a blunt probe. The bactiseal ventriculostomy catheter was then passed into the lateral ventricle at a depth of 7 cm blood-tinged CSF encountered with an opening pressure around 22 cm H20. After drainage of CSF the pressures were down to 8 cm H20. The distal end of the ventriculostomy was then tunneled under the scalp with a trocar and secured to the exit site with a 3-0 nylon thigh and connected to a drainage bag. Scalp incision site was approximated with 3-0 nylon interrupted stitches A sterile dressing was applied. There were no complications and blood loss was less than 10 cc. Trevon Duran MD May 27, 2017 13:34
--- NOTE | 2017-05-27 13:57 | OTSOAPIP ---
TIME SESSION COMPLETED: 1330 TREATMENT TIME: 0 MINS. CHART REVIEWED. PATIENT WAS AVAILABLE SECONDARY TO BEING INVOLVED IN A BEDSIDE PROCEDURE. PLAN: WILL BE PATIENT NEXT TREATMENT DAY Therapist: SURESH SAWYER/Toro Signature on file
[2017-05-27] MEDS: PHENYLEPHRINE INJ 80 MG in SODIUM CHLORID 0.9% 500 ML INJ 492 ML IV SCH (14:59)
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
--- NOTE | 2017-05-27 17:40 | RADRPT ---
EXAM DATE/TIME: 05/27/2017 17:16 [facility] COMPARISON: No previous studies available for comparison. INDICATIONS : Evaluate right foot, post trauma MEDICAL HISTORY : None. SURGICAL HISTORY : None. ENCOUNTER: Initial ACUITY: 1 week PAIN SCORE: Non-responsive. LOCATION: Right Right FINDINGS: No definite fractures, or dislocations are identified. No definite lytic or sclerotic lesion is seen . There are hypertrophic changes involving multiple tarsal joints. CONCLUSION: Chronic changes and no evidence for acute fracture. Chandrakant Jerry MD on May 27, 2017 at 17:38 Board Certified Radiologist. This report was verified electronically.
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
[2017-05-27] MEDS: MAGNESIUM HYDROXIDE SUSP 30 ML CUP PO SCH (21:57)
[2017-05-27 22:54] LABS: POTASSIUM 3.3 MEQ/L (3.5-5.1)
[2017-05-28] VITALS (19 sets, daily range): BP systolic 93–126; BP diastolic 51–64; PULSE 94–130; RESP 13–27; TEMP 96.3–101; O2SAT 70–100
[2017-05-28] MEDS: MIDAZOLAM 100 MG/NS 100 ML DRIP Premix IV SCH ×2 (01:44→18:54)
[2017-05-28] MEDS: PROPOFOL 1000 MG/100 ML IV SCH (01:44)
[2017-05-28] MEDS: NOREPINEPHRINE INJ 4 MG in SODIUM CHLOR 0.9% 250 ML INJ 246 ML IV SCH ×4 (01:44→18:24)
[2017-05-28] MEDS: 3% SALINE INJ 500 ML IV SCH (01:47)
[2017-05-28] MEDS: CISATRACURIUM INJ 100 MG in SODIUM CHLOR 0.9% 250 ML INJ 240 ML IV SCH (04:49)
--- NOTE | 2017-05-28 05:03 | RADRPT ---
EXAM DATE/TIME: 05/28/2017 03:40 [facility] COMPARISON: CHEST SINGLE AP, May 27, 2017, 3:40. INDICATIONS : Respiratory failure- post trauma, closed head injury MEDICAL HISTORY : None. SURGICAL HISTORY : None. ENCOUNTER: Subsequent ACUITY: 1 week PAIN SCORE: Non-responsive. LOCATION: Bilateral chest FINDINGS: The support devices remain in place. There is no pneumothorax. There is an increasing infiltrate in t he right lung base compared to the prior exam. There is a stable infiltrate in the left lung base. Th e heart size is stable. No other significant changes. CONCLUSION: 1. Increasing right lower lung infiltrate. 2. Stable left lower lung infiltrate. Matthew Hurtado MD on May 28, 2017 at 5:00 Board Certified Radiologist. This report was verified electronically.
[2017-05-28 05:48] LABS: BLOOD GAS BASE EXCESS -5.6 mmol/L (-2-2); BLOOD GAS CARBOXYHEMOGLOBIN 1.2 % (0-4); BLOOD GAS HCO3 19 mmol/L (22-26); BLOOD GAS O2 HGB SATURATION 93 % (90-100); BLOOD GAS OXYGEN CONTENT 13.9 Vol % (12.0-20.0); BLOOD GAS PCO2 35 mmHg (38-42); BLOOD GAS PO2 77 mmHg (61-120); BLOOD GAS TOTAL HGB 10.6 G/DL (12.0-16.0); TEMP CORR TO 98.6
[2017-05-28 05:49] LABS: CRITICAL VALUE NO; DRAW SITE ART LINE; FIO2 40 %; OXYGEN DEVICE VENTILATOR; STAT NO; ULNAR PULSE PRESENT; VENT SETTINGS PRVC20/600/0.9/+5
[2017-05-28] MEDS: PHENYLEPHRINE INJ 80 MG in SODIUM CHLORID 0.9% 500 ML INJ 492 ML IV SCH (05:58)
[2017-05-28 06:41] LABS: MEAN CELL VOLUME 91.6 FL (80.0-100.0); MEAN CORPUSCULAR HEMOGLOBIN 31.7 PG (27.0-34.0); MEAN CORPUSCULAR HGB CONC 34.7 % (32.0-36.0); PLATELET COUNT 94 TH/MM3 (150-450); RED BLOOD COUNT 2.51 MIL/MM3 (4.50-5.90); RED CELL DISTRIBUTION WIDTH 14.7 % (11.6-17.2); WHITE BLOOD COUNT 2.5 TH/MM3 (4.0-11.0)
[2017-05-28 06:45] LABS: REVIEW FLAG FINAL
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
[2017-05-28] MEDS: INSULIN ASPART SUPPLEMENTAL SCALE SQ SCH ×4 (07:00→21:00)
[2017-05-28 07:05] LABS: BICARBONATE 20.3 MEQ/L (21.0-32.0); MAGNESIUM 1.7 MG/DL (1.5-2.5); POTASSIUM 3.1 MEQ/L (3.5-5.1)
[2017-05-28 07:22] LABS: CALCIUM-PROTEIN CORRECTED 8.4 MG/DL (8.5-10.1)
[2017-05-28] MEDS: CHLORHEXIDINE GLUCONATE 2 % 1 PACK (2 CLOTHS) TOP SCH (07:38)
[2017-05-28] MEDS ORDERED: PHENYLEPHRINE INJ 80 MG in SODIUM CHLORID 0.9% 500 ML INJ 492 ML IV SCH (08:45)
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
[2017-05-28] MEDS: fentaNYL DRIP 250 ML IV SCH ×2 (09:15→18:54)
[2017-05-28] MEDS: PIPERACIL-TAZO 4.5 GM PREMIX 100 ML IV SCH ×3 (09:15→22:35)
[2017-05-28] MEDS: DOCUSATE SODIUM 100 MG CAP PO SCH ×2 (09:16→22:35)
[2017-05-28] MEDS: levETIRAcetam INJ 500 MG in SODIUM CHLORIDE 0.9% INJ 100 ML IV SCH ×2 (09:16→22:35)
[2017-05-28] MEDS: ARTIFICIAL TEARS OPTH OINT 3.5 APPLIC/3.5 GM TUBO EACH EYE SCH ×3 (09:16→17:34)
[2017-05-28] MEDS: BACITRACIN/POLYMYXIN B 15 GM TUBE TOPICAL SCH ×2 (09:16→21:18)
[2017-05-28] MEDS: CHLORHEXIDINE 0.12% (ORAL KIT) 15 ML CUP MT SCH ×2 (09:16→21:18)
[2017-05-28] MEDS: MULTIVITAMIN INJ 10 ML, FOLIC ACID INJ 1 MG in SODIUM CHLORID 0.9% 500 ML INJ 500 ML IV SCH (09:33)
[2017-05-28 10:40] LABS: POTASSIUM 3.8 MEQ/L (3.5-5.1)
[2017-05-28] MEDS ORDERED: PHENYLEPHRINE HCL 160 MG/D5W 484 ML ADMIX IV SCH ×2 (11:15)
[2017-05-28] MEDS ORDERED: PHENYLEPHRINE INJ 160 MG in SODIUM CHLORID 0.9% 500 ML INJ 500 ML IV SCH (11:25)
[2017-05-28] MEDS ORDERED: RESP: ALBUTEROL 2.5 MG/IPRATROPIUM 0.5 MG NEB (SCH) ONE (12:45)
[2017-05-28 12:47] LABS: BLOOD GAS BASE EXCESS -8.4 mmol/L (-2-2); BLOOD GAS CARBOXYHEMOGLOBIN 1.1 % (0-4); BLOOD GAS HCO3 17 mmol/L (22-26); BLOOD GAS METHEMOGLOBIN 0.8 % (0-2); BLOOD GAS O2 HGB SATURATION 88 % (90-100); BLOOD GAS OXYGEN CONTENT 8.8 Vol % (12.0-20.0); BLOOD GAS PCO2 39 mmHg (38-42); BLOOD GAS PO2 63 mmHg (61-120); TEMP CORR TO 98.6
[2017-05-28 12:48] LABS: CRITICAL VALUE YES; DRAW SITE ART LINE; FIO2 60 %; NUMBER OF ARTERIAL PUNCTURES 0; OXYGEN DEVICE VENTILATOR; STAT YES; ULNAR PULSE PRESENT; VENT SETTINGS CPAP/PEEP12/PS20
[2017-05-28] MEDS: PHENYLEPHRINE INJ 160 MG in SODIUM CHLORID 0.9% 500 ML INJ 484 ML IV SCH ×2 (13:42→18:24)
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
--- NOTE | 2017-05-28 14:18 | HHI.NSPN ---
(Jose G Garner) History Chief Complaint: Severe TBI. 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 ICP currently 5. Pt has not gone for a follow up CT head. 05/27: Pt sedated on Diprivan, Fentanyl, and Nimbex. ICPs 13 via zuri bolt. Pt on Federico, Levo, and Vaso pressor drips. Intubated. [place] J collar remains in place. 05/28: Pt sedated on Diprivan, Fentanyl, and Versed drips. Off Nimbex drip. ICP9. Ventriculostomy drain and zuri bolt in place Pupils 3mm bilaterally, reactive bilaterally. (Jose G Garner) System Review Comments Not able to obtain given clinical condition. (Jose G Garner) Exam Results Vital Signs Date Time Temp Pulse Resp B/P Pulse Ox O2 Delivery O2 Flow Rate FiO2 05/28/17 12:53 94 70 05/28/17 12:00 100.9 122 13 126/64 05/28/17 07:00 Mechanical Ventilator 05/25/17 23:09 15.00 Intake and Output 05/27/17 05/27/17 05/28/17 08:00 16:00 00:00 Intake Total 2540 ml 2834 ml 2286 ml Output Total 650 ml 841 ml 995 ml Balance 1890 ml 1993 ml 1291 ml (Jose G Garner) Physical Examination Resp: Mild coarse bs bilaterally. Intubated. Pressure controlled. Rate 22. Peep 12. Heart Sinus tachycardia. no murmurs. Pt on Federico and Levophed drips. Abd: Soft positive diminished bs Skin: No cyanosis or erythema. LLE splinted and bandaged. Muscle: No response to deep pain in upper chest. Neuro: Pt sedated on Diprivan, Fentanyl, and Versed drips.. Not opening eyes or following commands. Pupils 3mm bilaterally reactive bilaterally. [place] bolt in place ICP 9. Ventriculostomy drain in place with bloody CSF drainage. No response to pain but sedated heavily. 3% NaCl. (Jose G Garner) Lab, Micro, Other Results Last Impressions Chest X-Ray 05/28/17 0600 Signed Impressions: Service Date/Time: Sunday, May 28, 2017 03:40 - CONCLUSION: 1. Increasing right lower lung infiltrate. 2. Stable left lower lung infiltrate. Mtathew Hurtado MD Foot X-Ray 05/27/17 0000 Signed Impressions: Service Date/Time: Saturday, May 27, 2017 17:16 - CONCLUSION: Chronic changes and no evidence for acute fracture. Chandrakant Jerry MD Head CT 05/26/17 0600 Signed Impressions: Service Date/Time: Friday, May 26, 2017 08:25 - CONCLUSION: Severe traumatic brain injury with increasing parenchymal hemorrhage in the right frontal lobe but otherwise stable previously described hemorrhages. Stable mild right to left midline shift. Developing cerebral edema in the cerebellum adnexa the lobes. Opacified left middle ear from left occipital/basilar skull fracture Intracranial pressure monitor identified in the right frontal region. James Blood MD Neck CTA 05/26/17 0000 Signed Impressions: Service Date/Time: Friday, May 26, 2017 08:25 - CONCLUSION: No evidence of acute vascular injury, intimal dissection, aneurysm or restricted flow. James Blood MD Pelvis X-Ray 05/25/172317 Signed Impressions: Service Date/Time: Thursday, May 25, 2017 22:55 - CONCLUSION: No discrete fracture lucencies. Andrae Anderson MD Chest CT 05/25/172317 Signed Impressions: Service Date/Time: Thursday, May 25, 2017 23:35 - CONCLUSION: 1. Severe emphysematous changes are noted with bullous emphysematous disease in the upper lobes left greater than right. 2. Patchy pulmonary contusion is suspected. 3. Nonobstructing left renal calculi and bilateral renal cysts. 4. Extensive displaced and comminuted left scapular fractures as well as multiple left- sided rib fractures and T7 transverse process fracture on the left. Andrae Anderson MD Cervical Spine CT 05/25/172317 Signed Impressions: Service Date/Time: Thursday, May 25, 2017 23:26 - CONCLUSION: 1. Fracture through the left occipital condyle and occiput. 2. Left C2 lateral mass nondisplaced fracture. 3. Left sided C7 fractures as described above. Andrae Anderson MD Abdomen/Pelvis CT 05/25/178 Signed Impressions: Service Date/Time: Thursday, May 25, 2017 23:32 - CONCLUSION: 1. Bilateral renal cysts and nonobstructing left renal calculi. 2. Minimal basilar parenchymal infiltrates at the lung bases. 3. Splenic atrophy. 4. Left L2 and L3 transverse process fractures. 5. Right sacral fracture with diastasis of the SI joint on the right as well as the pubic symphysis. Andrae Anderson MD Tibia/Fibula X-Ray 05/25/17 0000 Signed Impressions: Service Date/Time: Thursday, May 25, 2017 22:55 - CONCLUSION: Heavily comminuted and displaced fractures of the tibia and fibula. Andrae Anderson MD Laboratory Tests Test 05/27/17 05/27/17 05/28/17 05/28/17 17:30 22:00 05:31 06:25 Sodium Level 153 MEQ/L 153 MEQ/L 156 MEQ/L Serum Osmolality 308 MOSM/KG 308 MOSM/KG 308 MOSM/KG Potassium Level 3.3 MEQ/L 3.1 MEQ/L Phosphorus Level 1.8 MG/DL 1.9 MG/DL Blood Gas Puncture Site ART LINE Blood Gas Patient Temperature 98.6 Blood Gas HCO3 19 mmol/L Blood Gas Base Excess -5.6 mmol/L Blood Gas Oxygen Saturation 93 % Arterial Blood pH 7.36 Arterial Blood Partial 35 mmHg Pressure CO2 Arterial Blood Partial 77 mmHg Pressure O2 Arterial Blood Oxygen Content 13.9 Vol % Arterial Blood 1.2 % Carboxyhemoglobin Arterial Blood Methemoglobin 1.0 % Blood Gas Hemoglobin 10.6 G/DL Oxygen Delivery Device VENTILATOR Blood Gas Ventilator Setting PRVC20/600/0.9/+5 Blood Gas Inspired Oxygen 40 % White Blood Count 2.5 TH/MM3 Red Blood Count 2.51 MIL/MM3 Hemoglobin 8.0 GM/DL Hematocrit 23.0 % Mean Corpuscular Volume 91.6 FL Mean Corpuscular Hemoglobin 31.7 PG Mean Corpuscular Hemoglobin 34.7 % Concent Red Cell Distribution Width 14.7 % Platelet Count 94 TH/MM3 Mean Platelet Volume 8.9 FL Chloride Level 127 MEQ/L Carbon Dioxide Level 20.3 MEQ/L Anion Gap 9 MEQ/L Blood Urea Nitrogen 7 MG/DL Creatinine 0.48 MG/DL Estimat Glomerular Filtration 215 ML/MIN Rate Random Glucose 126 MG/DL Calcium Level 6.8 MG/DL Protein Corrected Calcium 8.4 MG/DL Magnesium Level 1.7 MG/DL Total Protein 4.2 GM/DL Test 05/28/17 05/28/17 09:16 11:59 Potassium Level 3.8 MEQ/L Phosphorus Level 3.1 MG/DL Blood Gas Puncture Site ART LINE Blood Gas Patient Temperature 98.6 Blood Gas HCO3 17 mmol/L Blood Gas Base Excess -8.4 mmol/L Blood Gas Oxygen Saturation 88 % Arterial Blood pH 7.27 Arterial Blood Partial 39 mmHg Pressure CO2 Arterial Blood Partial 63 mmHg Pressure O2 Arterial Blood Oxygen Content 8.8 Vol % Arterial Blood 1.1 % Carboxyhemoglobin Arterial Blood Methemoglobin 0.8 % Blood Gas Hemoglobin 7.0 G/DL Oxygen Delivery Device VENTILATOR Blood Gas Ventilator Setting CPAP/PEEP12/PS20 Blood Gas Inspired Oxygen 60 % 05/27/17 05/27/17 05/28/17 15:00 23:00 07:00 Intake Total 2834 ml 2286 ml 1995 ml Output Total 841 ml 995 ml 780 ml Balance 1993 ml 1291 ml 1215 ml Intake IV Total 2834 ml 2286 ml 1995 ml Output Urine Total 775 ml 750 ml 700 ml Stool Total 0 ml 0 ml 0 ml Gastric Drainage Total 50 ml 150 ml 0 ml Drainage Total 16 ml 95 ml 80 ml (Jose G Garner) Medical Decision Making Impression and Plan A: 62 y/o M with severe TBI with small right SDH and multiple cerebral contusions. ICPs currently controlled with Diprivan, Fentanyl, and versed drips as well as NaCl 3%. P: Pts orthopedic surgery placed on hold given his severe TBI and follow up CT findings. continue with ICP monitor and control with sedation with Diprivan, Fentanyl , and Versed drips. continue with close neuro checks Continue with 3% NaCl. (Jose G Garner) Attending Statement The exam, history, and the medical decision-making described in the above note were completed with the assistance of the mid-level provider. I reviewed and agree with the findings presented. I attest that I had a [id number] encounter with the patient on the same day, and personally performed and documented my assessment and findings in the medical record. ICPs are now well controlled with ventriculostomy drainage. Exam limited because of high level of sedation and muscle paralytics which is being weaned. Follow-up CT scan of the head tomorrow morning. Continue with ICP control measures and supportive care. (Trevon Duran MD) Jose G Garner May 28, 2017 14:18 Trevon Duran MD May 28, 2017 16:57
[2017-05-28] MEDS ORDERED: SODIUM CHLOR 0.9% 1000 ML INJ 1,000 ML IV ONE (14:30)
--- NOTE | 2017-05-28 16:34 | OTSOAPIP ---
TIME SESSION COMPLETED: PM TREATMENT TIME: 0 MINS. CHART REVIEWED. INTERDISCIPLINARY COMMUNICATION: NURSING REQUEST TO HOLD TREATMENT TODAY DUE TO MEDICAL COMPLICATION PLAN: WILL SEE PATIENT NEXT TREATMENT DAY Therapist: SURESH SAWYER/Toro Signature on file
[2017-05-28] MEDS ORDERED: 3% SALINE INJ 500 ML IV ONE (16:45)
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
[2017-05-28] MEDS ORDERED: Vancomycin Consult Pharmacy 1 EA OTHER SCH (22:30)
[2017-05-28] MEDS ORDERED: VANCOMYCIN INJ 1,000 MG in SODIUM CHLOR 0.9% 250 ML INJ 250 ML IV ONE (22:30)
[2017-05-28] MEDS: MAGNESIUM HYDROXIDE SUSP 30 ML CUP PO SCH (22:35)
[2017-05-28] MEDS: VANCOMYCIN INJ 1,750 MG in SODIUM CHLORID 0.9% 500 ML INJ 500 ML IV SCH (22:59)
[2017-05-28] MEDS: VASOPRESSIN INJ 40 UNITS in DEXTROSE 5% IN WATER 100ML INJ 98 ML IV SCH ×2 (22:59)
[2017-05-29] VITALS (18 sets, daily range): BP systolic 92–137; BP diastolic 46–63; PULSE 110–122; RESP 23–28; TEMP 97.7–99.9; O2SAT 94–100
[2017-05-29] MEDS: PANTOPRAZOLE SODIUM 40 MG VIAL IVP SCH ×2 (01:00→22:07)
[2017-05-29] MEDS: NOREPINEPHRINE INJ 16 MG in SODIUM CHLOR 0.9% 250 ML INJ 234 ML IV SCH ×2 (01:01→09:18)
[2017-05-29] MEDS: PHENYLEPHRINE INJ 160 MG in SODIUM CHLORID 0.9% 500 ML INJ 484 ML IV SCH ×5 (02:11→18:35)
[2017-05-29] MEDS: PIPERACIL-TAZO 4.5 GM PREMIX 100 ML IV SCH ×4 (02:38→20:49)
[2017-05-29] MEDS: CHLORHEXIDINE GLUCONATE 2 % 1 PACK (2 CLOTHS) TOP SCH (04:00)
[2017-05-29] MEDS ORDERED: LIDOCAINE HCL 2% 100 MG/5 ML SYRINGE ONE (04:22)
[2017-05-29] MEDS ORDERED: ATROPINE SULFATE 1 MG/10 ML SYRINGE ONE (04:22)
[2017-05-29] MEDS ORDERED: EPINEPHrine HCL (1:10,000) 1 MG/10 ML SYRINGE ONE (04:22)
[2017-05-29] MEDS: RESP: ALBUTEROL 2.5 MG/IPRATROPIUM 0.5 MG NEB (SCH) NEB ×4 (04:59→20:12)
--- NOTE | 2017-05-29 05:33 | RADRPT ---
EXAM DATE/TIME: 05/29/2017 04:38 [facility] COMPARISON: CT BRAIN W/O CONTRAST, May 26, 2017, 8:25. INDICATIONS : Follow up hemorrhage. RADIATION DOSE: 63.29 CTDIvol (mGy) MEDICAL HISTORY : Non-responsive. SURGICAL HISTORY : Non-responsive. ENCOUNTER: Subsequent ACUITY: 4 - 6 days PAIN SCALE: Non-responsive LOCATION: cranial TECHNIQUE: Multiple contiguous axial images were obtained of the head. Using automated exposure control and adj ustment of the mA and/or kV according to patient size, radiation dose was kept as low as reasonably a chievable to obtain optimal diagnostic quality images. DICOM format image data is available electro nically for review and comparison. FINDINGS: Today's exam is compared to the prior study. There are punctate areas of hemorrhage noted in the righ t temporal lobe surrounded by edema. There continues to be areas of hemorrhage in the right frontal l obe surrounded by edema. There is evidence of subarachnoid hemorrhage in the sylvian fissures bilater ally. The ventricles are unchanged in size. There is a pressure monitor in the right frontal lobe. Th ere is a new left-sided ventricular catheter in place with the tip in the right lateral ventricle. Th ere is a punctate hemorrhage high along the right frontal lobe. There is cerebral edema bilaterally. There is an area of decreased density in the left cerebellar hemisphere suggestive of a nonhemorrhagi c infarction. There is approximately 3 mm of midline shift to the left. Stable calvarial fractures. CONCLUSION: 1. There continues to be severe traumatic brain injury with areas of parenchymal hemorrhage in the ri ght temporal lobe and right frontal lobe with surrounding edema. 2. Bilateral subarachnoid hemorrhage 3. Cerebral edema 4. Mild midline shift to the left by approximately 3 mm. 5. New area of decreased density in the left cerebellar hemisphere suggestive of an area of nonhemorr hagic infarction. Matthew Hurtado MD on May 29, 2017 at 5:23 Board Certified Radiologist. This report was verified electronically.
[2017-05-29 06:18] LABS: AUTOMATED NEUTROPHIL # 6.9 TH/MM3 (1.8-7.7); BASOPHIL % 0.3 % (0.0-2.0); EOSINOPHIL % 0.1 % (0.0-4.0); HEMATOCRIT 25.1 % (39.0-51.0); LYMPH % 6.7 % (9.0-44.0); LYMPHOCYTE # 0.5 TH/MM3 (1.0-4.8); MEAN CELL VOLUME 94.4 FL (80.0-100.0); MEAN CORPUSCULAR HEMOGLOBIN 31.3 PG (27.0-34.0); MEAN CORPUSCULAR HGB CONC 33.2 % (32.0-36.0); NEUT % 86.9 % (16.0-70.0); PLATELET COUNT 144 TH/MM3 (150-450); RED BLOOD COUNT 2.66 MIL/MM3 (4.50-5.90); RED CELL DISTRIBUTION WIDTH 15.3 % (11.6-17.2); WHITE BLOOD COUNT 7.9 TH/MM3 (4.0-11.0)
[2017-05-29 06:20] LABS: HEMO FLAGS AUTO DIFF
--- NOTE | 2017-05-29 06:54 | PD.ORT.PN ---
Subjective Subjective Remarks intubated/sedated. no changes Objective Vitals Vital Signs Date Time Temp Pulse Resp B/P Pulse Ox O2 Delivery O2 Flow Rate FiO2 05/29/17 06:00 115 05/29/17 04:59 94 70 05/29/17 04:30 94 100 05/29/17 04:00 70 05/29/17 04:00 97.7 115 27 94 115/63 05/29/17 04:00 115 05/29/17 02:00 120 05/29/17 01:26 94 70 05/29/17 01:26 94 90 05/29/17 00:00 117 05/29/17 00:00 75 05/29/17 00:00 99.3 117 26 95 92/56 Arterial Line 05/28/17 22:00 120 05/28/17 21:40 93 70 05/28/17 21:40 93 70 05/28/17 20:00 70 05/28/17 20:00 124 05/28/17 20:00 100.6 124 27 93 93/52 Arterial Line 05/28/17 18:00 127 05/28/17 16:40 94 70 05/28/17 16:00 70 05/28/17 16:00 101.0 126 25 93 106/61 05/28/17 16:00 126 05/28/17 14:00 127 05/28/17 12:53 94 70 05/28/17 12:00 100.9 122 13 93 126/64 05/28/17 12:00 122 05/28/17 12:00 70 05/28/17 10:00 130 05/28/17 08:34 86 100 05/28/17 08:00 97.2 119 23 91 102/51 05/28/17 08:00 40 05/28/17 08:00 119 05/28/17 07:57 70 40 05/28/17 07:00 96 Mechanical Ventilator 40 I/O 05/28/17 05/28/17 05/28/17 05/29/17 05/29/17 05/29/17 07:00 15:00 23:00 07:00 15:00 23:00 Intake Total 1995 ml 3682 ml 1966 ml 1578 ml Output Total 780 ml 757 ml 564 ml 714 ml Balance 1215 ml 2925 ml 1402 ml 864 ml Intake IV Total 1995 ml 3682 ml 1966 ml 1578 ml Output Urine Total 700 ml 425 ml 525 ml 700 ml Stool Total 0 ml 0 ml Gastric Drainage Total 0 ml 300 ml 0 ml 0 ml Drainage Total 80 ml 32 ml 39 ml 14 ml # Bowel Movements 0 0 Result Diagram: 05/29/17 0605 05/29/17 06 Imaging Last Impressions Chest X-Ray 05/26/17 0000 Signed Impressions: Service Date/Time: Friday, May 26, 2017 01:57 - CONCLUSION: 1. Right subclavian central venous catheter is noted as above. Andrae Anderson MD Pelvis X-Ray 05/25/172317 Signed Impressions: Service Date/Time: Thursday, May 25, 2017 22:55 - CONCLUSION: No discrete fracture lucencies. Andrae Anderson MD Head CT 05/25/172317 Signed Impressions: Service Date/Time: Thursday, May 25, 2017 23:25 - CONCLUSION: 1. Intraparenchymal, and extra-axial hemorrhage as described above with slight midline shift. 2. Skull fractures. 3. Left mastoid fluid. 4. Scalp laceration. Andrae Anderson MD Chest CT 05/25/172317 Signed Impressions: Service Date/Time: Thursday, May 25, 2017 23:35 - CONCLUSION: 1. Severe emphysematous changes are noted with bullous emphysematous disease in the upper lobes left greater than right. 2. Patchy pulmonary contusion is suspected. 3. Nonobstructing left renal calculi and bilateral renal cysts. 4. Extensive displaced and comminuted left scapular fractures as well as multiple left- sided rib fractures and T7 transverse process fracture on the left. Andrae Anderson MD Cervical Spine CT 05/25/172317 Signed Impressions: Service Date/Time: Thursday, May 25, 2017 23:26 - CONCLUSION: 1. Fracture through the left occipital condyle and occiput. 2. Left C2 lateral mass nondisplaced fracture. 3. Left sided C7 fractures as described above. Andrae Anderson MD Abdomen/Pelvis CT 05/25/172317 Signed Impressions: Service Date/Time: Thursday, May 25, 2017 23:32 - CONCLUSION: 1. Bilateral renal cysts and nonobstructing left renal calculi. 2. Minimal basilar parenchymal infiltrates at the lung bases. 3. Splenic atrophy. 4. Left L2 and L3 transverse process fractures. 5. Right sacral fracture with diastasis of the SI joint on the right as well as the pubic symphysis. Andrae Anderson MD Tibia/Fibula X-Ray 05/25/17 0000 Signed Impressions: Service Date/Time: Thursday, May 25, 2017 22:55 - CONCLUSION: Heavily comminuted and displaced fractures of the tibia and fibula. Andrae Anderson MD Objective Remarks LLE: In splint and dressing. Left leg was examined. There is moderate swelling. Compartments soft to palpation. Soft tissue edematous,1+. Pedal pulses palpable. Good cap refill. Small abrasion superficial over the anterior tibial region. RLE: No obvious pain or deformity with hip, knee, or ankle motion. Dorsalis pedis pulse palpable. Good capillary refill in toes Bilateral UE: No obvious pain or deformity with shoulder, elbow, or wrist motion. Radial pulses are palpable. Assessment & Plan Problem List: (1) Traumatic closed displaced fracture of shaft of left tibia and fibula (2) Subarachnoid hemorrhage (3) Closed head injury (4) C2 cervical fracture (5) C7 cervical fracture (6) T7 vertebral fracture (7) Traumatic diastasis of symphysis pubis (8) Fracture of left occipital condyle (9) Left scapula fracture (10) Sacral fracture (11) Fracture of occiput (12) Ribs, multiple fractures (13) L2 vertebral fracture (14) L3 vertebral fracture Assessment and Plan 1) Left tibia fracture --will need ORIF/ IMN, He currently is not cleared from a neurosurgical standpoint for any type of surgical intervention. Once cleared for surgery would benefit from internal fixation of the left tibia. 2) Left scapula fracture--plan on nonoperative treatment 3) Right sided sacral fracture--plan nonoperative treatment 4) Rib fractures--continue respiratory management with ventilator 5) Closed head injury -will await neuro clearance for ortho surgery -consents on chart Justin Perry May 29, 2017 06:54
[2017-05-29] MEDS: INSULIN ASPART SUPPLEMENTAL SCALE SQ SCH ×4 (07:00→20:46)
[2017-05-29 07:29] LABS: BANDS 30 % (0-6); CORRECTED NUCLEATED RBC 4 /100 WBC (0-0); METAMYELOCYTES 11 % (0-1); MYELOCYTES 2 % (0-0); NEUTROPHIL # MANUAL DIFF 7.1 TH/MM3 (1.8-7.7); PLATELET ESTIMATE SMEAR LOW (NORMAL); PLATELET MORPHOLOGY NORMAL (NORMAL); POLYS (SEG NEUTROPHILS) 47 % (16-70); SCAN/DIFF FINAL DIFF MANUAL; WBC DIFF SAMPLE 100
--- NOTE | 2017-05-29 08:54 | HHI.NSPN ---
(Jose G Garner) History Chief Complaint: Severe TBI. 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 ICP currently 5. Pt has not gone for a follow up CT head. 05/27: Pt sedated on Diprivan, Fentanyl, and Nimbex. ICPs 13 via zuri bolt. Pt on Federico, Levo, and Vaso pressor drips. Intubated. [place] J collar remains in place. 05/28: Pt sedated on Diprivan, Fentanyl, and Versed drips. Off Nimbex drip. ICP9. Ventriculostomy drain and zuri bolt in place Pupils 3mm bilaterally, reactive bilaterally. 05/29: Pt sedated on Fentanyl and Versed drips. ICP 12-16 range. Pupils 3mm bilaterally. Reactive bilaterally. Not following commands. Pt on Neosynephrine, Vasopressin, and Levophed to keep CPP greater than 60 (Jose G Garner) System Review Comments Not able to obtain given clinical condition. (Jose G Garner) Exam Results Vital Signs Date Time Temp Pulse Resp B/P Pulse Ox O2 Delivery O2 Flow Rate FiO2 05/29/17 08:30 96 70 05/29/17 06:00 115 05/29/17 04:00 97.7 27 115/63 05/28/17 07:00 Mechanical Ventilator 05/25/17 23:09 15.00 Intake and Output 05/28/17 05/28/17 05/29/17 08:00 16:00 00:00 Intake Total 1995 ml 3682 ml 1966 ml Output Total 780 ml 757 ml 564 ml Balance 1215 ml 2925 ml 1402 ml (Jose G Garner) Physical Examination Resp: CTA bilaterally. Intubated. Pressure controlled. Rate 22. Peep 12. FiO2 70% Heart Sinus tachycardia. no murmurs. Pt on Federico, vasopressin, and Levophed drips. Abd: Soft positive diminished bs Skin: No cyanosis or erythema. LLE splinted and bandaged. Muscle: No response to deep pain in upper chest. Neuro: Pt sedated on Fentanyl, and Versed drips.. Not opening eyes or following commands. Pupils 3mm bilaterally reactive bilaterally. Mccrory bolt in place ICP ICP 12-16 range. Ventriculostomy drain in place at 5cmH20 with bloody CSF drainage. No response to pain but sedated heavily. 3% NaCl. (Jose G Garner) Lab, Micro, Other Results Last Impressions Head CT 05/29/17 0600 Signed Impressions: Service Date/Time: Monday, May 29, 2017 04:38 - CONCLUSION: 1. There continues to be severe traumatic brain injury with areas of parenchymal hemorrhage in the right temporal lobe and right frontal lobe with surrounding edema. 2. Bilateral subarachnoid hemorrhage 3. Cerebral edema 4. Mild midline shift to the left by approximately 3 mm. 5. New area of decreased density in the left cerebellar hemisphere suggestive of an area of nonhemorrhagic infarction. Matthew Hurtado MD Chest X-Ray 05/28/17 0600 Signed Impressions: Service Date/Time: Sunday, May 28, 2017 03:40 - CONCLUSION: 1. Increasing right lower lung infiltrate. 2. Stable left lower lung infiltrate. Matthew Hurtado MD Foot X-Ray 05/27/17 0000 Signed Impressions: Service Date/Time: Saturday, May 27, 2017 17:16 - CONCLUSION: Chronic changes and no evidence for acute fracture. Chandrakant Jerry MD Neck CTA 05/26/17 0000 Signed Impressions: Service Date/Time: Friday, May 26, 2017 08:25 - CONCLUSION: No evidence of acute vascular injury, intimal dissection, aneurysm or restricted flow. James Blood MD Pelvis X-Ray 05/25/172317 Signed Impressions: Service Date/Time: Thursday, May 25, 2017 22:55 - CONCLUSION: No discrete fracture lucencies. Andrae Anderson MD Chest CT 05/25/178 Signed Impressions: Service Date/Time: Thursday, May 25, 2017 23:35 - CONCLUSION: 1. Severe emphysematous changes are noted with bullous emphysematous disease in the upper lobes left greater than right. 2. Patchy pulmonary contusion is suspected. 3. Nonobstructing left renal calculi and bilateral renal cysts. 4. Extensive displaced and comminuted left scapular fractures as well as multiple left- sided rib fractures and T7 transverse process fracture on the left. Andrae Anderson MD Cervical Spine CT 05/25/178 Signed Impressions: Service Date/Time: Thursday, May 25, 2017 23:26 - CONCLUSION: 1. Fracture through the left occipital condyle and occiput. 2. Left C2 lateral mass nondisplaced fracture. 3. Left sided C7 fractures as described above. Andrae Anderson MD Abdomen/Pelvis CT 05/25/172317 Signed Impressions: Service Date/Time: Thursday, May 25, 2017 23:32 - CONCLUSION: 1. Bilateral renal cysts and nonobstructing left renal calculi. 2. Minimal basilar parenchymal infiltrates at the lung bases. 3. Splenic atrophy. 4. Left L2 and L3 transverse process fractures. 5. Right sacral fracture with diastasis of the SI joint on the right as well as the pubic symphysis. Andrae Anderson MD Tibia/Fibula X-Ray 05/25/17 0000 Signed Impressions: Service Date/Time: Thursday, May 25, 2017 22:55 - CONCLUSION: Heavily comminuted and displaced fractures of the tibia and fibula. Andrae Anderson MD Laboratory Tests Test 05/28/17 05/28/17 05/28/17 05/29/17 09:16 11:59 17:22 01:19 Sodium Level 155 MEQ/L 155 MEQ/L 157 MEQ/L Potassium Level 3.8 MEQ/L Serum Osmolality 316 MOSM/KG 321 MOSM/KG Phosphorus Level 3.1 MG/DL Blood Gas Puncture Site ART LINE Blood Gas Patient Temperature 98.6 Blood Gas HCO3 17 mmol/L Blood Gas Base Excess -8.4 mmol/L Blood Gas Oxygen Saturation 88 % Arterial Blood pH 7.27 Arterial Blood Partial 39 mmHg Pressure CO2 Arterial Blood Partial 63 mmHg Pressure O2 Arterial Blood Oxygen Content 8.8 Vol % Arterial Blood 1.1 % Carboxyhemoglobin Arterial Blood Methemoglobin 0.8 % Blood Gas Hemoglobin 7.0 G/DL Oxygen Delivery Device VENTILATOR Blood Gas Ventilator Setting CPAP/PEEP12/PS20 Blood Gas Inspired Oxygen 60 % Test 05/29/17 06:05 White Blood Count 7.9 TH/MM3 Red Blood Count 2.66 MIL/MM3 Hemoglobin 8.3 GM/DL Hematocrit 25.1 % Mean Corpuscular Volume 94.4 FL Mean Corpuscular Hemoglobin 31.3 PG Mean Corpuscular Hemoglobin 33.2 % Concent Red Cell Distribution Width 15.3 % Platelet Count 144 TH/MM3 Mean Platelet Volume 8.0 FL Neutrophils (%) (Auto) 86.9 % Lymphocytes (%) (Auto) 6.7 % Monocytes (%) (Auto) 6.0 % Eosinophils (%) (Auto) 0.1 % Basophils (%) (Auto) 0.3 % Neutrophils # (Auto) 6.9 TH/MM3 Lymphocytes # (Auto) 0.5 TH/MM3 Monocytes # (Auto) 0.5 TH/MM3 Eosinophils # (Auto) 0.0 TH/MM3 Basophils # (Auto) 0.0 TH/MM3 CBC Comment AUTO DIFF Differential Total Cells 100 Counted Neutrophils % (Manual) 47 % Band Neutrophils % 30 % Lymphocytes % 6 % Monocytes % 4 % Neutrophils # (Manual) 7.1 TH/MM3 Metamyelocytes 11 % Myelocytes 2 % Nucleated Red Blood Cells 4 /100 WBC Differential Comment FINAL DIFF MANUAL Platelet Estimate LOW Platelet Morphology Comment NORMAL Sodium Level 155 MEQ/L 05/28/17 05/28/17 05/29/17 15:00 23:00 07:00 Intake Total 3682 ml 1966 ml 1578 ml Output Total 757 ml 564 ml 714 ml Balance 2925 ml 1402 ml 864 ml Intake IV Total 3682 ml 1966 ml 1578 ml Output Urine Total 425 ml 525 ml 700 ml Stool Total 0 ml Gastric Drainage Total 300 ml 0 ml 0 ml Drainage Total 32 ml 39 ml 14 ml # Bowel Movements 0 0 (Jose G Garner) Medical Decision Making Impression and Plan A: 62 y/o M with severe TBI with small right SDH and multiple cerebral contusions. ICPs currently controlled with Fentanyl, and versed drips as well as NaCl 3%. Pt on Vasopressin, Neosynephrine, and Levophed to keep CPP greater than 60. P: Pts orthopedic surgery placed on hold given his severe TBI and follow up CT findings. continue with ICP monitor and control with sedation with Fentanyl, and Versed drips. continue with close neuro checks Continue with 3% NaCl. (Jose G Garner) Attending Statement The exam, history, and the medical decision-making described in the above note were completed with the assistance of the mid-level provider. I reviewed and agree with the findings presented. I attest that I had a [id number] encounter with the patient on the same day, and personally performed and documented my assessment and findings in the medical record. ICPs ranging from 17-19 mmHg an requiring multiple vasopressors to maintain adequate CPP. Maximized on hypertonic and hyperosmolar therapy. Ventriculostomy draining well. Follow-up CT scan head with worsening edema-related contusions and possibly developing infarcts. We will introduce hypothermia along with muscle paralyzation to prevent shivering and continue with ICP control measures. ( Trevon Duran MD) Jose G Garner May 29, 2017 08:54 Trevon Duran MD May 29, 2017 09:34
[2017-05-29] MEDS: ARTIFICIAL TEARS OPTH OINT 3.5 APPLIC/3.5 GM TUBO EACH EYE SCH ×3 (09:00→18:00)
[2017-05-29] MEDS: DOCUSATE SODIUM 100 MG CAP PO SCH ×2 (09:00→20:46)
[2017-05-29] MEDS: BACITRACIN/POLYMYXIN B 15 GM TUBE TOPICAL SCH ×2 (09:00→20:47)
[2017-05-29] MEDS: MULTIVITAMIN INJ 10 ML, FOLIC ACID INJ 1 MG in SODIUM CHLORID 0.9% 500 ML INJ 500 ML IV SCH (09:18)
[2017-05-29] MEDS ORDERED: VECURONIUM BROMIDE 10 MG VIAL IV PUSH PRN (09:30)
[2017-05-29] MEDS: levETIRAcetam INJ 500 MG in SODIUM CHLORIDE 0.9% INJ 100 ML IV SCH ×2 (09:36→20:49)
[2017-05-29] MEDS: CHLORHEXIDINE 0.12% (ORAL KIT) 15 ML CUP MT SCH ×2 (09:37→20:46)
--- NOTE | 2017-05-29 10:11 | OTSOAPIP ---
TIME SESSION COMPLETED: 10 AM RN REQUESTS NO STIMULATION DUE TO ICP ELEVATION. Therapist: Etelvina Blum OTR/L Signature on file
[2017-05-29] MEDS: ACETAMINOPHEN 1000 MG/100 ML VIAL IV PRN ×2 (11:23→18:35)
[2017-05-29] MEDS: VANCOMYCIN INJ 1,750 MG in SODIUM CHLORID 0.9% 500 ML INJ 500 ML IV SCH ×2 (11:23→22:07)
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
[2017-05-29 12:23] LABS: BICARBONATE 20.9 MEQ/L (21.0-32.0); POTASSIUM 3.7 MEQ/L (3.5-5.1)
[2017-05-29 12:26] LABS: CALCIUM-PROTEIN CORRECTED 7.9 MG/DL (8.5-10.1)
[2017-05-29 12:32] LABS: TOTAL BILIRUBIN ADULT 0.7 MG/DL (0.2-1.0)
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
--- NOTE | 2017-05-29 13:01 | HHI.PR ---
Neuropsych Emotional Emotional: UnabletoAssess: Emotional, Anxious/Fearful, Depressed/Sad, Hostile/ Resentful, Irritable/Angry/Frustrate, Labile, Constricted/Blunted Behavior Behavior: Unable to Asses: Behavior, Coping/Acceptance, Cooperative w/ Treatment, Motivation, Frustration Tolerance/Walker, Impulsive/Agitated, Suicidal/ Homicidal Risk Cognitive Cognitive: Unable to Asses: Cognitive, Attention/Concentration, Confused/ Orientation, Insight/Awareness, Judgement/Problem-Solving, Memory Psychosocial Psychosocial: Unable to Asses: Psychosocial, Family/Other Adjustment, Realistic Expectation, Self-Esteem/Confidence Progress Notes/Response to Tx Contents of Sessions: Adjustment, Level of Consciousness Time with Patient: 15 minutes Premorbid psychological status Premorbid Cognitive, Emotional and Behavioral Status: Unable to Assess. The patient was unable to answer questions and there was no family present. Behavioral Reactions of Patient and Family/Support System: Unable to Assess. The patients family is experiencing ongoing issues of adjustment given the nature of the injury, and this aspect of recovery will require ongoing monitoring. Emotional/Behavioral Status of Patient and Family/Support System: Unable to Assess. Pertinent issues, if appropriate to this patients clinical care, are described in detail above. Maximizing acute care outcome It is recommended that the patient be monitored for emergent behavioral impulsivity as the medical condition evolves. This patients neuropathological challenges may limit their rehabilitation potential going forward, and these challenges will require specialized therapeutic skills to maximize outcome. Additionally, the patients family is experiencing ongoing issues of adjustment given the traumatic nature of the injury, and they may benefit from ongoing psychological assistance. Anticipated Problems Ongoing areas of concern will include behavioral impulsivity, lack of insight and judgment, which is expected to improve with time and treatment. Presently , the patient is intubated and sedated. Treatment Plan This clinician will continue to follow with you throughout the course of this patients acute care treatment, and I will be available to meet with the patient s family/support system to facilitate their understanding and the ongoing care of their family member. The goals of neuropsychological intervention shall be both educational and supportive to the family/support system as is deemed clinically appropriate. Impression This patient suffered a severe traumatic brain injury and is expected to experience ongoing residual neurocognitive deficits going forward. Diagnosis: (1) Major neurocognitive disorder as late effect of traumatic brain injury without behavioral disturbance Status: Acute Progress Note Narrative Ongoing follow-up of patient seen during daily trauma rounds. This is day 4 post injury. The patient is stable, although there were concerns about his ICP monitor not functioning properly. Additional concerns included ARDS. He is presently a [place]. I will continue to follow. Crispin Montalvo PhD May 29, 2017 13:01
[2017-05-29] MEDS: fentaNYL DRIP 250 ML IV SCH (14:45)
[2017-05-29] MEDS: VASOPRESSIN INJ 40 UNITS in DEXTROSE 5% IN WATER 100ML INJ 98 ML IV SCH ×2 (18:35)
[2017-05-29] MEDS: MIDAZOLAM 100 MG/NS 100 ML DRIP Premix IV SCH (19:41)
[2017-05-29] MEDS: MAGNESIUM HYDROXIDE SUSP 30 ML CUP PO SCH (20:49)
[2017-05-30] VITALS (20 sets, daily range): BP systolic 98–122; BP diastolic 46–54; PULSE 100–114; RESP 23–30; TEMP 97–99.4; O2SAT 84–100
[2017-05-30] MEDS: PHENYLEPHRINE INJ 160 MG in SODIUM CHLORID 0.9% 500 ML INJ 484 ML IV SCH ×5 (00:14→22:19)
[2017-05-30] MEDS: fentaNYL DRIP 250 ML IV SCH ×2 (02:26→22:19)
[2017-05-30] MEDS: CHLORHEXIDINE GLUCONATE 2 % 1 PACK (2 CLOTHS) TOP SCH (02:26)
[2017-05-30] MEDS: PIPERACIL-TAZO 4.5 GM PREMIX 100 ML IV SCH ×4 (02:26→20:07)
[2017-05-30] MEDS: RESP: ALBUTEROL 2.5 MG/IPRATROPIUM 0.5 MG NEB (SCH) NEB ×4 (03:35→21:41)
[2017-05-30 05:28] LABS: BLOOD GAS BASE EXCESS -9.6 mmol/L (-2-2); BLOOD GAS CARBOXYHEMOGLOBIN 1.2 % (0-4); BLOOD GAS HCO3 17 mmol/L (22-26); BLOOD GAS METHEMOGLOBIN 0.6 % (0-2); BLOOD GAS O2 HGB SATURATION 84 % (90-100); BLOOD GAS PCO2 46 mmHg (38-42); BLOOD GAS PO2 55 mmHg (61-120); BLOOD GAS TOTAL HGB 7.6 G/DL (12.0-16.0); TEMP CORR TO 98.6
[2017-05-30 05:29] LABS: CRITICAL VALUE YES; OXYGEN DEVICE VENTILATOR
[2017-05-30 05:30] LABS: VENT SETTINGS PRVC/AC
[2017-05-30 05:31] LABS: DRAW SITE ART LINE; FIO2 60 %; STAT NO
[2017-05-30] MEDS ORDERED: SODIUM BICARBONATE 8.4% INJ 50 MEQ/50 ML SYR IV PUSH ONE ×2 (05:45→10:00)
[2017-05-30] MEDS: INSULIN ASPART SUPPLEMENTAL SCALE SQ SCH ×4 (06:58→21:00)
--- NOTE | 2017-05-30 07:08 | PD.ORT.PN ---
Subjective Subjective Remarks intubated/sedated. no changes nurse reports that neurologic status declining Objective Vitals Vital Signs Date Time Temp Pulse Resp B/P Pulse Ox O2 Delivery O2 Flow Rate FiO2 05/30/17 06:00 112 106/50 05/30/17 05:20 84 100 05/30/17 04:11 100 50 05/30/17 04:11 93 50 05/30/17 04:00 97.0 108 30 96 104/50 05/30/17 04:00 70 05/30/17 01:08 100 50 05/30/17 00:00 99.4 112 23 100 110/52 05/30/17 00:00 70 05/29/17 20:12 100 60 05/29/17 20:00 70 05/29/17 20:00 99.3 116 23 96 110/51 05/29/17 20:00 114 05/29/17 19:05 23 05/29/17 18:00 117 05/29/17 16:31 95 60 05/29/17 16:00 99.1 114 25 94 110/46 05/29/17 16:00 114 05/29/17 16:00 60 05/29/17 14:00 110 05/29/17 13:31 60 05/29/17 12:50 99 60 05/29/17 12:00 99.9 112 24 98 137/62 05/29/17 12:00 112 05/29/17 12:00 70 05/29/17 10:00 122 05/29/17 08:30 96 70 05/29/17 08:00 70 05/29/17 08:00 98.8 116 28 95 127/58 05/29/17 08:00 116 I/O 05/29/17 05/29/17 05/29/17 05/30/17 05/30/17 05/30/17 07:00 15:00 23:00 07:00 15:00 23:00 Intake Total 1578 ml 2344 ml 2350 ml 2582 ml Output Total 714 ml 850 ml 1018 ml 1032 ml Balance 864 ml 1494 ml 1332 ml 1550 ml Intake IV Total 1578 ml 2344 ml 2350 ml 2582 ml Output Urine Total 700 ml 750 ml 1000 ml 1000 ml Gastric Drainage Total 0 ml 75 ml Drainage Total 14 ml 25 ml 18 ml 32 ml # Bowel Movements 0 0 0 0 Result Diagram: 05/29/17 0605 05/30/17 0600 Imaging Last Impressions Chest X-Ray 05/26/17 0000 Signed Impressions: Service Date/Time: Friday, May 26, 2017 01:57 - CONCLUSION: 1. Right subclavian central venous catheter is noted as above. Andrae Anderson MD Pelvis X-Ray 05/25/172317 Signed Impressions: Service Date/Time: Thursday, May 25, 2017 22:55 - CONCLUSION: No discrete fracture lucencies. Andrae Anderson MD Head CT 05/25/172317 Signed Impressions: Service Date/Time: Thursday, May 25, 2017 23:25 - CONCLUSION: 1. Intraparenchymal, and extra-axial hemorrhage as described above with slight midline shift. 2. Skull fractures. 3. Left mastoid fluid. 4. Scalp laceration. Andrae Anderson MD Chest CT 05/25/172317 Signed Impressions: Service Date/Time: Thursday, May 25, 2017 23:35 - CONCLUSION: 1. Severe emphysematous changes are noted with bullous emphysematous disease in the upper lobes left greater than right. 2. Patchy pulmonary contusion is suspected. 3. Nonobstructing left renal calculi and bilateral renal cysts. 4. Extensive displaced and comminuted left scapular fractures as well as multiple left- sided rib fractures and T7 transverse process fracture on the left. Andrae Anderson MD Cervical Spine CT 05/25/172317 Signed Impressions: Service Date/Time: Thursday, May 25, 2017 23:26 - CONCLUSION: 1. Fracture through the left occipital condyle and occiput. 2. Left C2 lateral mass nondisplaced fracture. 3. Left sided C7 fractures as described above. Andrae Anderson MD Abdomen/Pelvis CT 05/25/172317 Signed Impressions: Service Date/Time: Thursday, May 25, 2017 23:32 - CONCLUSION: 1. Bilateral renal cysts and nonobstructing left renal calculi. 2. Minimal basilar parenchymal infiltrates at the lung bases. 3. Splenic atrophy. 4. Left L2 and L3 transverse process fractures. 5. Right sacral fracture with diastasis of the SI joint on the right as well as the pubic symphysis. Andrae Anderson MD Tibia/Fibula X-Ray 05/25/17 0000 Signed Impressions: Service Date/Time: Thursday, May 25, 2017 22:55 - CONCLUSION: Heavily comminuted and displaced fractures of the tibia and fibula. Andrae Anderson MD Objective Remarks LLE: In splint and dressing. Left leg was examined. There is moderate swelling. Compartments soft to palpation. Soft tissue edematous,1+. Pedal pulses palpable. Good cap refill. Small abrasion superficial over the anterior tibial region. RLE: No obvious pain or deformity with hip, knee, or ankle motion. Dorsalis pedis pulse palpable. Good capillary refill in toes Bilateral UE: No obvious pain or deformity with shoulder, elbow, or wrist motion. Radial pulses are palpable. Assessment & Plan Problem List: (1) Traumatic closed displaced fracture of shaft of left tibia and fibula (2) Subarachnoid hemorrhage (3) Closed head injury (4) C2 cervical fracture (5) C7 cervical fracture (6) T7 vertebral fracture (7) Traumatic diastasis of symphysis pubis (8) Fracture of left occipital condyle (9) Left scapula fracture (10) Sacral fracture (11) Fracture of occiput (12) Ribs, multiple fractures (13) L2 vertebral fracture (14) L3 vertebral fracture Assessment and Plan 1) Left tibia fracture --will need ORIF/ IMN, He currently is not cleared from a neurosurgical standpoint for any type of surgical intervention. Once cleared for surgery would benefit from internal fixation of the left tibia. 2) Left scapula fracture--plan on nonoperative treatment 3) Right sided sacral fracture--plan nonoperative treatment 4) Rib fractures--continue respiratory management with ventilator 5) Closed head injury -will await neuro clearance for ortho surgery -consents on chart Justin Perry May 30, 2017 07:08
[2017-05-30 07:12] LABS: AUTOMATED NEUTROPHIL # 10.1 TH/MM3 (1.8-7.7); BASOPHIL % 0.3 % (0.0-2.0); HEMATOCRIT 22.7 % (39.0-51.0); LYMPH % 4.9 % (9.0-44.0); LYMPHOCYTE # 0.6 TH/MM3 (1.0-4.8); MEAN CELL VOLUME 94.5 FL (80.0-100.0); MEAN CORPUSCULAR HEMOGLOBIN 31.1 PG (27.0-34.0); MEAN CORPUSCULAR HGB CONC 32.9 % (32.0-36.0); MONO % 6.8 % (0.0-8.0); PLATELET COUNT 149 TH/MM3 (150-450); RED BLOOD COUNT 2.41 MIL/MM3 (4.50-5.90); RED CELL DISTRIBUTION WIDTH 15.3 % (11.6-17.2); WHITE BLOOD COUNT 11.5 TH/MM3 (4.0-11.0)
[2017-05-30] MEDS: ARTIFICIAL TEARS OPTH OINT 3.5 APPLIC/3.5 GM TUBO EACH EYE SCH ×3 (07:41→17:29)
[2017-05-30 07:52] LABS: HEMO FLAGS AUTO DIFF
[2017-05-30] MEDS ORDERED: LIDOCAINE 1%/EPINEPHrine 1:100,000 SOLN 30 ML VIAL ONE (08:59)
[2017-05-30] MEDS: BACITRACIN/POLYMYXIN B 15 GM TUBE TOPICAL SCH ×2 (09:00→20:09)
[2017-05-30] MEDS: DOCUSATE SODIUM 100 MG CAP PO SCH ×2 (09:00→20:07)
[2017-05-30] MEDS: levETIRAcetam INJ 500 MG in SODIUM CHLORIDE 0.9% INJ 100 ML IV SCH ×2 (09:14→20:07)
[2017-05-30] MEDS: MIDAZOLAM 100 MG/NS 100 ML DRIP Premix IV SCH (09:15)
[2017-05-30] MEDS: CHLORHEXIDINE 0.12% (ORAL KIT) 15 ML CUP MT SCH ×2 (09:17→20:07)
[2017-05-30 09:18] LABS: BANDS 33 % (0-6); CORRECTED NUCLEATED RBC 10 /100 WBC (0-0); NEUTROPHIL # MANUAL DIFF 10.1 TH/MM3 (1.8-7.7); PLATELET ESTIMATE SMEAR NORMAL (NORMAL); PLATELET MORPHOLOGY NORMAL (NORMAL); POLYS (SEG NEUTROPHILS) 55 % (16-70); SCAN/DIFF FINAL DIFF MANUAL; WBC DIFF SAMPLE 100
[2017-05-30 09:19] LABS: BICARBONATE 17.8 MEQ/L (21.0-32.0); CALCIUM-PROTEIN CORRECTED 7.9 MG/DL (8.5-10.1); POTASSIUM 3.2 MEQ/L (3.5-5.1); TOTAL BILIRUBIN ADULT 0.8 MG/DL (0.2-1.0)
[2017-05-30 09:43] LABS: BLOOD GAS BASE EXCESS -9.3 mmol/L (-2-2); BLOOD GAS CARBOXYHEMOGLOBIN 1.2 % (0-4); BLOOD GAS HCO3 17 mmol/L (22-26); BLOOD GAS METHEMOGLOBIN 0.7 % (0-2); BLOOD GAS O2 HGB SATURATION 91 % (90-100); BLOOD GAS OXYGEN CONTENT 9.7 Vol % (12.0-20.0); BLOOD GAS PCO2 42 mmHg (38-42); BLOOD GAS PO2 70 mmHg (61-120); BLOOD GAS TOTAL HGB 7.5 G/DL (12.0-16.0); TEMP CORR TO 98.6
[2017-05-30 09:44] LABS: CRITICAL VALUE YES; DRAW SITE ALINE; FIO2 90 %; OXYGEN DEVICE VENT; STAT YES; VENT SETTINGS PRVC/22/600/12/.75
[2017-05-30] MEDS ORDERED: BUMETANIDE INJ 1 MG/4 ML VIAL IV PUSH ONE (10:00)
[2017-05-30] MEDS ORDERED: SODIUM CHLOR 0.9% 250 ML INJ 250 ML IV ONE (10:00)
[2017-05-30] MEDS: VANCOMYCIN INJ 1,750 MG in SODIUM CHLORID 0.9% 500 ML INJ 500 ML IV SCH (10:23)
--- NOTE | 2017-05-30 10:31 | HHI.NSPN ---
(Jose G Garner) History Chief Complaint: Severe TBI. 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 ICP currently 5. Pt has not gone for a follow up CT head. 05/27: Pt sedated on Diprivan, Fentanyl, and Nimbex. ICPs 13 via zuri bolt. Pt on Federico, Levo, and Vaso pressor drips. Intubated. Cotton J collar remains in place. 05/28: Pt sedated on Diprivan, Fentanyl, and Versed drips. Off Nimbex drip. ICP9. Ventriculostomy drain and zuri bolt in place Pupils 3mm bilaterally, reactive bilaterally. 05/29: Pt sedated on Fentanyl and Versed drips. ICP 12-16 range. Pupils 3mm bilaterally. Reactive bilaterally. Not following commands. Pt on Neosynephrine, Vasopressin, and Levophed to keep CPP greater than 60 05/30: Pt sedated on Fentanyl and versed drips. ICP 9. Right pupil 3 mm left pupil 2.5 mm. Right pupil reactive left pupil questionable reactive. Not following commands. Patient remains on Federico-Synephrine vasopressin we will drips to keep CPP greater than 60. (Jose G Garner) System Review Comments Not able to obtain given clinical condition. (Jose G Garner) Exam Results Vital Signs Date Time Temp Pulse Resp B/P Pulse Ox O2 Delivery O2 Flow Rate FiO2 05/30/17 08:49 100 90 05/30/17 07:40 98.6 05/30/17 06:00 112 106/50 05/30/17 04:00 30 05/28/17 07:00 Mechanical Ventilator Intake and Output 05/29/17 05/29/17 05/29/17 07:59 15:59 23:59 Intake Total 1578 ml 2344 ml 2350 ml Output Total 714 ml 850 ml 1018 ml Balance 864 ml 1494 ml 1332 ml (Jose G Garner) Physical Examination Resp: Mild coarse breath sounds bilaterally. Intubated. Pressure controlled. Rate 22. Peep 12. FiO2 90% Heart Sinus tachycardia. no murmurs. Pt on Federico, vasopressin, and Levophed drips. Abd: Soft positive diminished bs Skin: No cyanosis or erythema. LLE splinted and bandaged. Muscle: No response to deep pain in upper chest. Neuro: Pt sedated on Fentanyl, and Versed drips.. Not opening eyes or following commands. Pupils 3mm bilaterally reactive bilaterally. Ventriculostomy drain in place at 5cmH20 with bloody CSF drainage and ICP 9. No response to pain but sedated heavily. 3% NaCl. (Jose G Garner) Lab, Micro, Other Results Last Impressions Head CT 05/29/17 0600 Signed Impressions: Service Date/Time: Monday, May 29, 2017 04:38 - CONCLUSION: 1. There continues to be severe traumatic brain injury with areas of parenchymal hemorrhage in the right temporal lobe and right frontal lobe with surrounding edema. 2. Bilateral subarachnoid hemorrhage 3. Cerebral edema 4. Mild midline shift to the left by approximately 3 mm. 5. New area of decreased density in the left cerebellar hemisphere suggestive of an area of nonhemorrhagic infarction. Matthew Hurtado MD Chest X-Ray 05/28/17 0600 Signed Impressions: Service Date/Time: Sunday, May 28, 2017 03:40 - CONCLUSION: 1. Increasing right lower lung infiltrate. 2. Stable left lower lung infiltrate. Matthew Hurtado MD Foot X-Ray 05/27/17 0000 Signed Impressions: Service Date/Time: Saturday, May 27, 2017 17:16 - CONCLUSION: Chronic changes and no evidence for acute fracture. Chandrakant Jerry MD Neck CTA 05/26/17 0000 Signed Impressions: Service Date/Time: Friday, May 26, 2017 08:25 - CONCLUSION: No evidence of acute vascular injury, intimal dissection, aneurysm or restricted flow. James Blood MD Pelvis X-Ray 05/25/17 6751 Signed Impressions: Service Date/Time: Thursday, May 25, 2017 22:55 - CONCLUSION: No discrete fracture lucencies. Andrae Anderson MD Chest CT 05/25/172317 Signed Impressions: Service Date/Time: Thursday, May 25, 2017 23:35 - CONCLUSION: 1. Severe emphysematous changes are noted with bullous emphysematous disease in the upper lobes left greater than right. 2. Patchy pulmonary contusion is suspected. 3. Nonobstructing left renal calculi and bilateral renal cysts. 4. Extensive displaced and comminuted left scapular fractures as well as multiple left- sided rib fractures and T7 transverse process fracture on the left. Andrae Anderson MD Cervical Spine CT 05/25/172317 Signed Impressions: Service Date/Time: Thursday, May 25, 2017 23:26 - CONCLUSION: 1. Fracture through the left occipital condyle and occiput. 2. Left C2 lateral mass nondisplaced fracture. 3. Left sided C7 fractures as described above. Andrae Anderson MD Abdomen/Pelvis CT 05/25/172317 Signed Impressions: Service Date/Time: Thursday, May 25, 2017 23:32 - CONCLUSION: 1. Bilateral renal cysts and nonobstructing left renal calculi. 2. Minimal basilar parenchymal infiltrates at the lung bases. 3. Splenic atrophy. 4. Left L2 and L3 transverse process fractures. 5. Right sacral fracture with diastasis of the SI joint on the right as well as the pubic symphysis. Andrae Anderson MD Tibia/Fibula X-Ray 05/25/17 0000 Signed Impressions: Service Date/Time: Thursday, May 25, 2017 22:55 - CONCLUSION: Heavily comminuted and displaced fractures of the tibia and fibula. Andrae Anderson MD Laboratory Tests Test 05/29/17 05/30/17 05/30/17 05/30/17 11:11 00:30 05:20 06:00 Sodium Level 155 MEQ/L 157 MEQ/L 157 MEQ/L Random Cortisol 59.7 MCG/DL Blood Gas Puncture Site ART LINE Blood Gas Patient Temperature 98.6 Blood Gas HCO3 17 mmol/L Blood Gas Base Excess -9.6 mmol/L Blood Gas Oxygen Saturation 84 % Arterial Blood pH 7.20 Arterial Blood Partial 46 mmHg Pressure CO2 Arterial Blood Partial 55 mmHg Pressure O2 Arterial Blood Oxygen Content 9.0 Vol % Arterial Blood 1.2 % Carboxyhemoglobin Arterial Blood Methemoglobin 0.6 % Blood Gas Hemoglobin 7.6 G/DL Oxygen Delivery Device VENTILATOR Blood Gas Ventilator Setting PRVC/AC Blood Gas Inspired Oxygen 60 % White Blood Count 11.5 TH/MM3 Red Blood Count 2.41 MIL/MM3 Hemoglobin 7.5 GM/DL Hematocrit 22.7 % Mean Corpuscular Volume 94.5 FL Mean Corpuscular Hemoglobin 31.1 PG Mean Corpuscular Hemoglobin 32.9 % Concent Red Cell Distribution Width 15.3 % Platelet Count 149 TH/MM3 Mean Platelet Volume 8.5 FL Neutrophils (%) (Auto) 88.0 % Lymphocytes (%) (Auto) 4.9 % Monocytes (%) (Auto) 6.8 % Eosinophils (%) (Auto) 0.0 % Basophils (%) (Auto) 0.3 % Neutrophils # (Auto) 10.1 TH/MM3 Lymphocytes # (Auto) 0.6 TH/MM3 Monocytes # (Auto) 0.8 TH/MM3 Eosinophils # (Auto) 0.0 TH/MM3 Basophils # (Auto) 0.0 TH/MM3 CBC Comment AUTO DIFF Differential Total Cells 100 Counted Neutrophils % (Manual) 55 % Band Neutrophils % 33 % Lymphocytes % 5 % Monocytes % 7 % Neutrophils # (Manual) 10.1 TH/MM3 Nucleated Red Blood Cells 10 /100 WBC Differential Comment FINAL DIFF MANUAL Platelet Estimate NORMAL Platelet Morphology Comment NORMAL Potassium Level 3.2 MEQ/L Chloride Level 127 MEQ/L Carbon Dioxide Level 17.8 MEQ/L Anion Gap 12 MEQ/L Blood Urea Nitrogen 19 MG/DL Creatinine 0.82 MG/DL Estimat Glomerular Filtration 116 ML/MIN Rate Random Glucose 63 MG/DL Calcium Level 6.8 MG/DL Protein Corrected Calcium 7.9 MG/DL Total Bilirubin 0.8 MG/DL Aspartate Amino Transf 73 U/L (AST/SGOT) Alanine Aminotransferase 46 U/L (ALT/SGPT) Alkaline Phosphatase 361 U/L Total Protein 4.9 GM/DL Albumin 1.6 GM/DL Test 05/30/17 09:33 Blood Gas Puncture Site RADHA Blood Gas Patient Temperature 98.6 Blood Gas HCO3 17 mmol/L Blood Gas Base Excess -9.3 mmol/L Blood Gas Oxygen Saturation 91 % Arterial Blood pH 7.23 Arterial Blood Partial 42 mmHg Pressure CO2 Arterial Blood Partial 70 mmHg Pressure O2 Arterial Blood Oxygen Content 9.7 Vol % Arterial Blood 1.2 % Carboxyhemoglobin Arterial Blood Methemoglobin 0.7 % Blood Gas Hemoglobin 7.5 G/DL Oxygen Delivery Device VENT Blood Gas Ventilator Setting PRVC/22/600/12/.75 Blood Gas Inspired Oxygen 90 % 05/29/17 05/29/17 05/30/17 14:59 22:59 06:59 Intake Total 2344 ml 2350 ml 2582 ml Output Total 850 ml 1018 ml 1032 ml Balance 1494 ml 1332 ml 1550 ml Intake IV Total 2344 ml 2350 ml 2582 ml Output Urine Total 750 ml 1000 ml 1000 ml Gastric Drainage Total 75 ml Drainage Total 25 ml 18 ml 32 ml # Bowel Movements 0 0 0 (Jose G Garner) Medical Decision Making Impression and Plan A: 62 y/o M with severe TBI with small right SDH and multiple cerebral contusions. ICPs currently controlled with Fentanyl, and versed drips as well as NaCl 3%. Pt on Vasopressin, Neosynephrine, and Levophed to keep CPP greater than 60. P: Pts orthopedic surgery placed on hold given his severe TBI and follow up CT findings. continue with ICP monitor and control with sedation with Fentanyl, and Versed drips. continue with close neuro checks Continue with 3% NaCl. Pts zuri bolt was not correlating with the Ventriculostomy drain and reading negative numbers and I was advised by Dr. Duran to remove it. The area was cleaned with ChloraPrep. The zuri bolt exit site was injected with 0.5 cc of lidocaine with epi 1%. The bolt was removed. Sterile technique was used and two dago were placed and no further CSF drainage was seen. [place] were disposed of. (Jose G Garner) Attending Statement The exam, history, and the medical decision-making described in the above note were completed with the assistance of the mid-level provider. I reviewed and agree with the findings presented. I attest that I had a [id number] encounter with the patient on the same day, and personally performed and documented my assessment and findings in the medical record. ICPs have been well controlled with ventriculostomies CSF drainage and the sedatives which currently include Versed and fentanyl drips. Oxygenation has been an issue with him and currently is on her percent FiO2 with ventilatory support as well as acidotic with CO2 retention. Continue with current management. (Trevon Duran MD) Jose G Garner May 30, 2017 10:31 Trevon Duran MD May 30, 2017 11:12
[2017-05-30] MEDS ORDERED: PHARMACY ORDERED LAB ONE (10:45)
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
--- NOTE | 2017-05-30 11:57 | HHI.PR ---
Neuropsych Emotional Emotional: UnabletoAssess: Emotional, Anxious/Fearful, Depressed/Sad, Hostile/ Resentful, Irritable/Angry/Frustrate, Labile, Constricted/Blunted Behavior Behavior: Unable to Asses: Behavior, Coping/Acceptance, Cooperative w/ Treatment, Motivation, Frustration Tolerance/[place], Impulsive/Agitated, Suicidal/ Homicidal Risk Cognitive Cognitive: Unable to Asses: Cognitive, Attention/Concentration, Confused/ Orientation, Insight/Awareness, Judgement/Problem-Solving, Memory Psychosocial Psychosocial: Unable to Asses: Psychosocial, Family/Other Adjustment, Realistic Expectation, Self-Esteem/Confidence Progress Notes/Response to Tx Contents of Sessions: Adjustment, Level of Consciousness Time with Patient: 15 minutes Premorbid psychological status Premorbid Cognitive, Emotional and Behavioral Status: Unable to Assess. The patient was unable to answer questions and there was no family present. Behavioral Reactions of Patient and Family/Support System: Unable to Assess. The patients family is experiencing ongoing issues of adjustment given the nature of the injury, and this aspect of recovery will require ongoing monitoring. Emotional/Behavioral Status of Patient and Family/Support System: Unable to Assess. Pertinent issues, if appropriate to this patients clinical care, are described in detail above. Maximizing acute care outcome It is recommended that the patient be monitored for emergent behavioral impulsivity as the medical condition evolves. This patients neuropathological challenges may limit their rehabilitation potential going forward, and these challenges will require specialized therapeutic skills to maximize outcome. Additionally, the patients family is experiencing ongoing issues of adjustment given the traumatic nature of the injury, and they may benefit from ongoing psychological assistance. Anticipated Problems Ongoing areas of concern will include behavioral impulsivity, lack of insight and judgment, which is expected to improve with time and treatment. Presently , the patient is intubated and sedated. Treatment Plan This clinician will continue to follow with you throughout the course of this patients acute care treatment, and I will be available to meet with the patient s family/support system to facilitate their understanding and the ongoing care of their family member. The goals of neuropsychological intervention shall be both educational and supportive to the family/support system as is deemed clinically appropriate. [facility] Level: I:No response-total assistance Impression This patient suffered a severe traumatic brain injury and is expected to experience ongoing residual neurocognitive deficits going forward. Diagnosis: (1) Major neurocognitive disorder as late effect of traumatic brain injury without behavioral disturbance Status: Acute Progress Note Narrative Ongoing follow-up of patient seen during daily trauma rounds. This is day 5 post injury. The patient remains intubated and sedated. His overall medical condition has been deteriorating and he has shown a decline in his neurological status. He remains at a [place]. His chances for a meaningful recovery are limited. I will continue to follow. Crispin Montalvo PhD May 30, 2017 11:57 am
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
[2017-05-30] MEDS: VASOPRESSIN INJ 40 UNITS in DEXTROSE 5% IN WATER 100ML INJ 98 ML IV SCH ×2 (13:53)
--- NOTE | 2017-05-30 14:18 | OTSOAPIP ---
RN REQUESTS TO HOLD DUE TO MEDICAL STATUS. Therapist: Etelvina Blum OTR/L Signature on file
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
[2017-05-30] MEDS: POTASSIUM CHLOR 40 MEQ PREMIX 100 ML IV PRN ×2 (17:35→20:08)
[2017-05-30] MEDS: MAGNESIUM HYDROXIDE SUSP 30 ML CUP PO SCH (20:06)
[2017-05-30] MEDS: VANCOMYCIN INJ 2,250 MG in SODIUM CHLORID 0.9% 500 ML INJ 500 ML IV SCH (22:18)
[2017-05-30] MEDS: PANTOPRAZOLE SODIUM 40 MG VIAL IVP SCH (22:18)
[2017-05-31] VITALS (17 sets, daily range): BP systolic 108–121; BP diastolic 48–54; PULSE 98–108; RESP 23–39; TEMP 97–99.7; O2SAT 95–100
[2017-05-31] MEDS: PIPERACIL-TAZO 4.5 GM PREMIX 100 ML IV SCH ×4 (02:56→20:02)
[2017-05-31] MEDS: VASOPRESSIN INJ 40 UNITS in DEXTROSE 5% IN WATER 100ML INJ 98 ML IV SCH ×4 (02:56→17:53)
[2017-05-31] MEDS: CHLORHEXIDINE GLUCONATE 2 % 1 PACK (2 CLOTHS) TOP SCH ×2 (02:57→22:44)
[2017-05-31 03:09] LABS: BASOPHIL % 0.3 % (0.0-2.0); HEMATOCRIT 24.2 % (39.0-51.0); LYMPH % 4.8 % (9.0-44.0); LYMPHOCYTE # 0.5 TH/MM3 (1.0-4.8); MEAN CELL VOLUME 90.2 FL (80.0-100.0); MEAN CORPUSCULAR HEMOGLOBIN 30.2 PG (27.0-34.0); MEAN CORPUSCULAR HGB CONC 33.5 % (32.0-36.0); MONO % 6.5 % (0.0-8.0); NEUT % 88.4 % (16.0-70.0); PLATELET COUNT 124 TH/MM3 (150-450); RED BLOOD COUNT 2.68 MIL/MM3 (4.50-5.90); RED CELL DISTRIBUTION WIDTH 17.3 % (11.6-17.2); WHITE BLOOD COUNT 10.2 TH/MM3 (4.0-11.0)
[2017-05-31 03:15] LABS: HEMO FLAGS AUTO DIFF
[2017-05-31] MEDS: RESP: ALBUTEROL 2.5 MG/IPRATROPIUM 0.5 MG NEB (SCH) NEB ×4 (03:26→20:50)
[2017-05-31 03:59] LABS: BANDS 20 % (0-6); CORRECTED NUCLEATED RBC 7 /100 WBC (0-0); NEUTROPHIL # MANUAL DIFF 8.8 TH/MM3 (1.8-7.7); POLYS (SEG NEUTROPHILS) 66 % (16-70); WBC DIFF SAMPLE 100
[2017-05-31 04:06] LABS: SCAN/DIFF FINAL DIFF MANUAL
[2017-05-31 04:07] LABS: PLATELET ESTIMATE SMEAR LOW (NORMAL); PLATELET MORPHOLOGY NORMAL (NORMAL)
[2017-05-31 04:08] LABS: ACANTHOCYTES OCC (NORMAL); DOHLE BODIES PRESENT (NONE SEEN); TOXIC VACUOLATION PRESENT (NONE SEEN)
[2017-05-31 04:59] LABS: BICARBONATE 20.6 MEQ/L (21.0-32.0); TOTAL BILIRUBIN ADULT 0.9 MG/DL (0.2-1.0)
[2017-05-31 05:08] LABS: POTASSIUM 2.9 MEQ/L (3.5-5.1)
[2017-05-31] MEDS: POTASSIUM CHLOR 40 MEQ PREMIX 100 ML IV PRN ×2 (05:10→13:42)
[2017-05-31] MEDS: INSULIN ASPART SUPPLEMENTAL SCALE SQ SCH ×6 (05:10→21:36)
[2017-05-31] MEDS ORDERED: ALTEPLASE RECOMBINANT 2 MG VIAL IV FLUSH ONE (05:45)
--- NOTE | 2017-05-31 07:26 | PD.ORT.PN ---
Subjective Subjective Remarks intubated/sedated. no changes nurse reports that neurologic status declining Objective Vitals Vital Signs Date Time Temp Pulse Resp B/P Pulse Ox O2 Delivery O2 Flow Rate FiO2 05/31/17 04:18 100 90 05/31/17 04:00 90 05/31/17 04:00 97.0 98 23 99 108/48 05/31/17 01:16 100 90 05/31/17 00:00 99.7 108 26 100 113/52 05/31/17 00:00 90 05/30/17 21:41 100 90 05/30/17 20:00 101 05/30/17 20:00 97.8 102 26 98 98/46 05/30/17 20:00 90 05/30/17 18:00 100 05/30/17 18:00 100 105/51 05/30/17 16:35 96 90 05/30/17 16:00 90 05/30/17 16:00 97.8 102 26 96 122/50 05/30/17 16:00 102 05/30/17 15:57 97.0 103 28 120/49 96 05/30/17 14:00 106 05/30/17 13:47 98 90 05/30/17 12:00 103 05/30/17 12:00 97.0 103 28 96 109/49 05/30/17 12:00 90 05/30/17 11:00 97.2 05/30/17 10:00 110 05/30/17 08:49 100 90 05/30/17 08:00 98.9 114 28 96 112/54 05/30/17 08:00 114 05/30/17 08:00 70 05/30/17 07:40 98.6 I/O 05/30/17 05/30/17 05/30/17 05/31/17 05/31/17 05/31/17 07:00 15:00 23:00 07:00 15:00 23:00 Intake Total 2582 ml 2789 ml 2016 ml 2148 ml Output Total 1032 ml 1015 ml 5314 ml 1571 ml Balance 1550 ml 1774 ml -3298 ml 577 ml Intake IV Total 2582 ml 2789 ml 2016 ml 2148 ml Output Urine Total 1000 ml 950 ml 5300 ml 1550 ml Gastric Drainage Total 25 ml Drainage Total 32 ml 40 ml 14 ml 21 ml # Bowel Movements 0 0 0 0 Result Diagram: 05/31/17 0300 05/31/17 0300 Imaging Last Impressions Chest X-Ray 05/26/17 0000 Signed Impressions: Service Date/Time: Friday, May 26, 2017 01:57 - CONCLUSION: 1. Right subclavian central venous catheter is noted as above. Andrae Anderson MD Pelvis X-Ray 05/25/172317 Signed Impressions: Service Date/Time: Thursday, May 25, 2017 22:55 - CONCLUSION: No discrete fracture lucencies. Andrae Anderson MD Head CT 05/25/172317 Signed Impressions: Service Date/Time: Thursday, May 25, 2017 23:25 - CONCLUSION: 1. Intraparenchymal, and extra-axial hemorrhage as described above with slight midline shift. 2. Skull fractures. 3. Left mastoid fluid. 4. Scalp laceration. Andrae Anderson MD Chest CT 05/25/172317 Signed Impressions: Service Date/Time: Thursday, May 25, 2017 23:35 - CONCLUSION: 1. Severe emphysematous changes are noted with bullous emphysematous disease in the upper lobes left greater than right. 2. Patchy pulmonary contusion is suspected. 3. Nonobstructing left renal calculi and bilateral renal cysts. 4. Extensive displaced and comminuted left scapular fractures as well as multiple left- sided rib fractures and T7 transverse process fracture on the left. Andrae Anderson MD Cervical Spine CT 05/25/172317 Signed Impressions: Service Date/Time: Thursday, May 25, 2017 23:26 - CONCLUSION: 1. Fracture through the left occipital condyle and occiput. 2. Left C2 lateral mass nondisplaced fracture. 3. Left sided C7 fractures as described above. Andrae Anderson MD Abdomen/Pelvis CT 05/25/172317 Signed Impressions: Service Date/Time: Thursday, May 25, 2017 23:32 - CONCLUSION: 1. Bilateral renal cysts and nonobstructing left renal calculi. 2. Minimal basilar parenchymal infiltrates at the lung bases. 3. Splenic atrophy. 4. Left L2 and L3 transverse process fractures. 5. Right sacral fracture with diastasis of the SI joint on the right as well as the pubic symphysis. Andrae Anderson MD Tibia/Fibula X-Ray 05/25/17 0000 Signed Impressions: Service Date/Time: Thursday, May 25, 2017 22:55 - CONCLUSION: Heavily comminuted and displaced fractures of the tibia and fibula. Andrae Anderson MD Objective Remarks LLE: In splint and dressing. Left leg was examined. There is moderate swelling. Compartments soft to palpation. Soft tissue edematous,1+. Pedal pulses palpable. Good cap refill. Small abrasion superficial over the anterior tibial region. RLE: No obvious pain or deformity with hip, knee, or ankle motion. Dorsalis pedis pulse palpable. Good capillary refill in toes Bilateral UE: No obvious pain or deformity with shoulder, elbow, or wrist motion. Radial pulses are palpable. Assessment & Plan Problem List: (1) Traumatic closed displaced fracture of shaft of left tibia and fibula (2) Subarachnoid hemorrhage (3) Closed head injury (4) C2 cervical fracture (5) C7 cervical fracture (6) T7 vertebral fracture (7) Traumatic diastasis of symphysis pubis (8) Fracture of left occipital condyle (9) Left scapula fracture (10) Sacral fracture (11) Fracture of occiput (12) Ribs, multiple fractures (13) L2 vertebral fracture (14) L3 vertebral fracture Assessment and Plan 1) Left tibia fracture --will need ORIF/ IMN, He currently is not cleared from a neurosurgical standpoint for any type of surgical intervention. Once cleared for surgery would benefit from internal fixation of the left tibia. 2) Left scapula fracture--plan on nonoperative treatment 3) Right sided sacral fracture--plan nonoperative treatment 4) Rib fractures--continue respiratory management with ventilator 5) Closed head injury -will await neuro clearance for ortho surgery -palliative care meeting scheduled for today. Justin Perry May 31, 2017 07:26
[2017-05-31] MEDS: CHLORHEXIDINE 0.12% (ORAL KIT) 15 ML CUP MT SCH ×2 (08:00→20:02)
[2017-05-31] MEDS: BACITRACIN/POLYMYXIN B 15 GM TUBE TOPICAL SCH ×2 (09:00→20:02)
[2017-05-31] MEDS: DOCUSATE SODIUM 100 MG CAP PO SCH ×2 (09:00→20:02)
[2017-05-31] MEDS: ARTIFICIAL TEARS OPTH OINT 3.5 APPLIC/3.5 GM TUBO EACH EYE SCH ×3 (09:00→18:00)
[2017-05-31] MEDS: levETIRAcetam INJ 500 MG in SODIUM CHLORIDE 0.9% INJ 100 ML IV SCH ×2 (09:20→20:02)
[2017-05-31] MEDS: PHENYLEPHRINE INJ 160 MG in SODIUM CHLORID 0.9% 500 ML INJ 484 ML IV SCH ×3 (10:00→17:48)
[2017-05-31 10:07] LABS: BLOOD GAS BASE EXCESS -6.4 mmol/L (-2-2); BLOOD GAS CARBOXYHEMOGLOBIN 1.4 % (0-4); BLOOD GAS HCO3 19 mmol/L (22-26); BLOOD GAS METHEMOGLOBIN 0.7 % (0-2); BLOOD GAS O2 HGB SATURATION 89 % (90-100); BLOOD GAS OXYGEN CONTENT 10.3 Vol % (12.0-20.0); BLOOD GAS PCO2 41 mmHg (38-42); BLOOD GAS PO2 60 mmHg (61-120); BLOOD GAS TOTAL HGB 8.2 G/DL (12.0-16.0); TEMP CORR TO 98.6
[2017-05-31 10:12] LABS: CRITICAL VALUE YES; OXYGEN DEVICE VENTILATOR
[2017-05-31 10:13] LABS: DRAW SITE ART LINE; FIO2 80 %; NUMBER OF ARTERIAL PUNCTURES 0; STAT NO; ULNAR PULSE PRESENT; VENT SETTINGS AC
[2017-05-31] MEDS: fentaNYL DRIP 250 ML IV SCH (10:38)
[2017-05-31] MEDS: LACTULOSE SYRUP 20 GM/30 ML CUP PO SCH (11:14)
[2017-05-31] MEDS: VANCOMYCIN INJ 2,250 MG in SODIUM CHLORID 0.9% 500 ML INJ 500 ML IV SCH ×2 (11:14→22:43)
--- NOTE | 2017-05-31 11:15 | HHI.PR ---
Neuropsych Emotional Emotional: UnabletoAssess: Emotional, Anxious/Fearful, Depressed/Sad, Hostile/ Resentful, Irritable/Angry/Frustrate, Labile, Constricted/Blunted Behavior Behavior: Unable to Asses: Behavior, Coping/Acceptance, Cooperative w/ Treatment, Motivation, Frustration Tolerance/[place], Impulsive/Agitated, Suicidal/ Homicidal Risk Cognitive Cognitive: Unable to Asses: Cognitive, Attention/Concentration, Confused/ Orientation, Insight/Awareness, Judgement/Problem-Solving, Memory Psychosocial Psychosocial: Intact: Psychosocial, Moderate: Family/Other Adjustment, Severe : Realistic Expectation, Unable to Asses: Self-Esteem/Confidence Progress Notes/Response to Tx Contents of Sessions: Adjustment, Level of Consciousness Time with Patient: 15 minutes Premorbid psychological status Premorbid Cognitive, Emotional and Behavioral Status: Unable to Assess. The patient was unable to answer questions and there was no family present. Behavioral Reactions of Patient and Family/Support System: Unable to Assess. The patients family is experiencing ongoing issues of adjustment given the nature of the injury, and this aspect of recovery will require ongoing monitoring. Emotional/Behavioral Status of Patient and Family/Support System: Unable to Assess. Pertinent issues, if appropriate to this patients clinical care, are described in detail above. Maximizing acute care outcome It is recommended that the patient be monitored for emergent behavioral impulsivity as the medical condition evolves. This patients neuropathological challenges may limit their rehabilitation potential going forward, and these challenges will require specialized therapeutic skills to maximize outcome. Additionally, the patients family is experiencing ongoing issues of adjustment given the traumatic nature of the injury, and they may benefit from ongoing psychological assistance. Anticipated Problems Ongoing areas of concern will include behavioral impulsivity, lack of insight and judgment, which is expected to improve with time and treatment. Presently , the patient is intubated and sedated. Treatment Plan This clinician will continue to follow with you throughout the course of this patients acute care treatment, and I will be available to meet with the patient s family/support system to facilitate their understanding and the ongoing care of their family member. The goals of neuropsychological intervention shall be both educational and supportive to the family/support system as is deemed clinically appropriate. [facility] Level: I:No response-total assistance Impression This patient suffered a severe traumatic brain injury and is expected to experience ongoing residual neurocognitive deficits going forward. Diagnosis: (1) Major neurocognitive disorder as late effect of traumatic brain injury without behavioral disturbance Status: Acute Progress Note Narrative Ongoing follow-up of patient seen during daily trauma rounds. This is day 6 post injury. The patient is reported to be hemodynamically deteriorating and prognosis is considered grim at best, and is reported to be imminent, with his PF ratio reported in the severe range. He remains a [place]. I will continue to follow. Crispin Montalvo PhD May 31, 2017 11:15 am
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
--- NOTE | 2017-05-31 16:32 | HHI.NSPN ---
(Jose G Garner) History Chief Complaint: Severe TBI. 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 ICP currently 5. Pt has not gone for a follow up CT head. 05/27: Pt sedated on Diprivan, Fentanyl, and Nimbex. ICPs 13 via zuri bolt. Pt on Federico, Levo, and Vaso pressor drips. Intubated. Perry J collar remains in place. 05/28: Pt sedated on Diprivan, Fentanyl, and Versed drips. Off Nimbex drip. ICP9. Ventriculostomy drain and zuri bolt in place Pupils 3mm bilaterally, reactive bilaterally. 05/29: Pt sedated on Fentanyl and Versed drips. ICP 12-16 range. Pupils 3mm bilaterally. Reactive bilaterally. Not following commands. Pt on Neosynephrine, Vasopressin, and Levophed to keep CPP greater than 60 05/30: Pt sedated on Fentanyl and versed drips. ICP 9. Right pupil 3 mm left pupil 2.5 mm. Right pupil reactive left pupil questionable reactive. Not following commands. Patient remains on Federico-Synephrine vasopressin we will drips to keep CPP greater than 60. 05/31: Pt sedated on Fentanyl and Versed drips. Not opening eyes. Pupils 3mm bilaterally right reactive left NR. Not following commands. (Jose G Garner) System Review Comments Not able to obtain given clinical condition. (Jose G Garner) Exam Results Vital Signs Date Time Temp Pulse Resp B/P Pulse Ox O2 Delivery O2 Flow Rate FiO2 05/31/17 16:15 99 90 05/31/17 14:00 100 05/31/17 12:00 121/50 05/31/17 12:00 99.0 28 05/28/17 07:00 Mechanical Ventilator Intake and Output 05/30/17 05/30/17 05/30/17 07:59 15:59 23:59 Intake Total 2582 ml 2789 ml 2016 ml Output Total 1032 ml 2765 ml 3564 ml Balance 1550 ml 24 ml -1548 ml (Jose G Garner) Physical Examination Resp: Mild coarse bs bilaterally. Intubated. Pressure controlled. Rate 20. Peep 12. FiO2 90% Heart Sinus tachycardia. no murmurs. Pt on Federico, vasopressin, and Levophed drips. Abd: Soft positive diminished bs Skin: No cyanosis or erythema. LLE splinted and bandaged. Muscle: No response to deep pain in upper chest. Neuro: Pt sedated on Fentanyl, and Versed drips. Not opening eyes or following commands. Pupils 3mm bilaterally Right reactive left nonreactive. Ventriculostomy drain in place at 5cmH20 with bloody CSF drainage and ICP 5. No response to pain. (Jose G Garner) Lab, Micro, Other Results Last Impressions Head CT 05/29/17 0600 Signed Impressions: Service Date/Time: Monday, May 29, 2017 04:38 - CONCLUSION: 1. There continues to be severe traumatic brain injury with areas of parenchymal hemorrhage in the right temporal lobe and right frontal lobe with surrounding edema. 2. Bilateral subarachnoid hemorrhage 3. Cerebral edema 4. Mild midline shift to the left by approximately 3 mm. 5. New area of decreased density in the left cerebellar hemisphere suggestive of an area of nonhemorrhagic infarction. Matthew Hurtado MD Chest X-Ray 05/28/17 0600 Signed Impressions: Service Date/Time: Sunday, May 28, 2017 03:40 - CONCLUSION: 1. Increasing right lower lung infiltrate. 2. Stable left lower lung infiltrate. Matthew Hurtado MD Foot X-Ray 05/27/17 0000 Signed Impressions: Service Date/Time: Saturday, May 27, 2017 17:16 - CONCLUSION: Chronic changes and no evidence for acute fracture. Chandrakant Jerry MD Neck CTA 05/26/17 0000 Signed Impressions: Service Date/Time: Friday, May 26, 2017 08:25 - CONCLUSION: No evidence of acute vascular injury, intimal dissection, aneurysm or restricted flow. James Blood MD Pelvis X-Ray 05/25/17 7080 Signed Impressions: Service Date/Time: Thursday, May 25, 2017 22:55 - CONCLUSION: No discrete fracture lucencies. Andrae Anderson MD Chest CT 05/25/172317 Signed Impressions: Service Date/Time: Thursday, May 25, 2017 23:35 - CONCLUSION: 1. Severe emphysematous changes are noted with bullous emphysematous disease in the upper lobes left greater than right. 2. Patchy pulmonary contusion is suspected. 3. Nonobstructing left renal calculi and bilateral renal cysts. 4. Extensive displaced and comminuted left scapular fractures as well as multiple left- sided rib fractures and T7 transverse process fracture on the left. Andrae Anderson MD Cervical Spine CT 05/25/172317 Signed Impressions: Service Date/Time: Thursday, May 25, 2017 23:26 - CONCLUSION: 1. Fracture through the left occipital condyle and occiput. 2. Left C2 lateral mass nondisplaced fracture. 3. Left sided C7 fractures as described above. Andrae Anderson MD Abdomen/Pelvis CT 05/25/172317 Signed Impressions: Service Date/Time: Thursday, May 25, 2017 23:32 - CONCLUSION: 1. Bilateral renal cysts and nonobstructing left renal calculi. 2. Minimal basilar parenchymal infiltrates at the lung bases. 3. Splenic atrophy. 4. Left L2 and L3 transverse process fractures. 5. Right sacral fracture with diastasis of the SI joint on the right as well as the pubic symphysis. Andrae Anderson MD Tibia/Fibula X-Ray 05/25/17 0000 Signed Impressions: Service Date/Time: Thursday, May 25, 2017 22:55 - CONCLUSION: Heavily comminuted and displaced fractures of the tibia and fibula. Andrae Anderson MD Laboratory Tests Test 05/30/17 05/31/17 05/31/17 05/31/17 18:26 03:00 09:55 11:50 Sodium Level 157 MEQ/L 157 MEQ/L 157 MEQ/L White Blood Count 10.2 TH/MM3 Red Blood Count 2.68 MIL/MM3 Hemoglobin 8.1 GM/DL Hematocrit 24.2 % Mean Corpuscular Volume 90.2 FL Mean Corpuscular Hemoglobin 30.2 PG Mean Corpuscular Hemoglobin 33.5 % Concent Red Cell Distribution Width 17.3 % Platelet Count 124 TH/MM3 Mean Platelet Volume 7.8 FL Neutrophils (%) (Auto) 88.4 % Lymphocytes (%) (Auto) 4.8 % Monocytes (%) (Auto) 6.5 % Eosinophils (%) (Auto) 0.0 % Basophils (%) (Auto) 0.3 % Neutrophils # (Auto) 9.0 TH/MM3 Lymphocytes # (Auto) 0.5 TH/MM3 Monocytes # (Auto) 0.7 TH/MM3 Eosinophils # (Auto) 0.0 TH/MM3 Basophils # (Auto) 0.0 TH/MM3 CBC Comment AUTO DIFF Differential Total Cells 100 Counted Neutrophils % (Manual) 66 % Band Neutrophils % 20 % Lymphocytes % 5 % Monocytes % 9 % Neutrophils # (Manual) 8.8 TH/MM3 Nucleated Red Blood Cells 7 /100 WBC Differential Comment FINAL DIFF MANUAL Toxic Vacuolation PRESENT Dohle Bodies PRESENT Platelet Estimate LOW Platelet Morphology Comment NORMAL Ovalocytes Acanthocytes OCC Potassium Level 2.9 MEQ/L 3.3 MEQ/L Chloride Level 123 MEQ/L Carbon Dioxide Level 20.6 MEQ/L Anion Gap 13 MEQ/L Blood Urea Nitrogen 18 MG/DL Creatinine 0.88 MG/DL Estimat Glomerular Filtration 107 ML/MIN Rate Random Glucose 208 MG/DL Calcium Level 6.8 MG/DL Protein Corrected Calcium 8.0 MG/DL Total Bilirubin 0.9 MG/DL Aspartate Amino Transf 64 U/L (AST/SGOT) Alanine Aminotransferase 44 U/L (ALT/SGPT) Alkaline Phosphatase 58 U/L Total Protein 4.8 GM/DL Albumin 1.6 GM/DL Blood Gas Puncture Site ART LINE Blood Gas Patient Temperature 98.6 Blood Gas HCO3 19 mmol/L Blood Gas Base Excess -6.4 mmol/L Blood Gas Oxygen Saturation 89 % Arterial Blood pH 7.29 Arterial Blood Partial 41 mmHg Pressure CO2 Arterial Blood Partial 60 mmHg Pressure O2 Arterial Blood Oxygen Content 10.3 Vol % Arterial Blood 1.4 % Carboxyhemoglobin Arterial Blood Methemoglobin 0.7 % Blood Gas Hemoglobin 8.2 G/DL Oxygen Delivery Device VENTILATOR Blood Gas Ventilator Setting AC Blood Gas Inspired Oxygen 80 % 05/30/17 05/30/17 05/31/17 14:59 22:59 06:59 Intake Total 2789 ml 2016 ml 2148 ml Output Total 1015 ml 5314 ml 1571 ml Balance 1774 ml -3298 ml 577 ml Intake IV Total 2789 ml 2016 ml 2148 ml Output Urine Total 950 ml 5300 ml 1550 ml Gastric Drainage Total 25 ml Drainage Total 40 ml 14 ml 21 ml # Bowel Movements 0 0 0 (Jose G Garner) Medical Decision Making Impression and Plan A: 62 y/o M with severe TBI with small right SDH and multiple cerebral contusions. ICPs currently controlled with Fentanyl, and versed drips. Pt on Vasopressin, Neosynephrine, and Levophed to keep CPP greater than 60. P: Pts orthopedic surgery placed on hold given his severe TBI and follow up CT findings. continue with ICP monitor and control with sedation with Fentanyl, and Versed drips. continue with close neuro checks (Jose G Garner) Attending Statement The exam, history, and the medical decision-making described in the above note were completed with the assistance of the mid-level provider. I reviewed and agree with the findings presented. I attest that I had a [id number] encounter with the patient on the same day, and personally performed and documented my assessment and findings in the medical record. ICPs remain normal and is off all sedatives other than a fentanyl drip since last night. Ventriculostomy draining well. Ventilations less oxygenation has been an issue and requiring high FiO2 with marginal pO2 and remains acidotic. Continue with supportive care. (Trevon Duran MD) Jose G Garner May 31, 2017 16:32 Trevon Duran MD May 31, 2017 17:24
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
--- NOTE | 2017-05-31 19:17 | HHI.HCPN ---
Reason for visit a. To assist with evaluation and management of symptoms including: Dyspnea, pain b. To assist medical decision maker(s) with: better understanding of current medical conditions; weighing benefits/burdens of medical treatment options; making medical treatment decisions. Subjective/Interval History Patient is seen and examined in ICU. No family at bedside. Discussed with nurse , Dr. Sellers and Dr. Sloan. Patient remains sedated ([facility]anyl 150[facility] ([facility] 90%, PEEP 12). Oxygen diffusion remains severely impaired due to advanced emphysema and probable aspiration. Continuing hemodynamic instability requiring excessive vasopressor (on Vaso and Federico) support. 05/29/17 - CT scan head revealed large cerebral infarcts and severe swelling. Per tobacco weigher "chance of any meaningful recovery approaches zero." Tube feeding at 10cc/hr. Cultures negative to date. . Family/friend interactions 3:30-5pm: Palliative care (myself, Calli Del Cid, SAFETY ASSOCIATE student and Jeanette Stark , CAGE MANAGER) met with family including JC (nephew), Mohsen (twin brother) his Destiny (BRANDI), Jayne (sister), Joselin (), Venus (BRANDI- Muriels sister), Irene (sister), Kimberly (niece), Kim (niece), Yahaira Cuenca (son), Rev. Menjivar and another student counselor from their ep[employer]op[employer]. Items discussed: * Palliative care role, purpose, approach * Patient/family understanding of the current medical problems * Patient/family understanding of prognosis (poor) * Patients goals of care as best understood from prior conversations and/or values * Current medical treatment options and benefits/burdens of those options * Likely scenarios comparing ongoing aggressive care with a transition to comfort measures only * CODE Status - FULL CODE family considering * Questions answered to the best of my ability * Palliative care contact information provided In summary, all family certain patient would not want to live like this or a life of dependance. They have very strong kyler and believe God has a plan whether he survives or not. verbalizes "she doesn't care she will take him in a usp" and remainder of family verbalizes he would not want to live like that. Family requested some time alone to talk. I was called back to the room and they had not made any additional decisions. 6:15-6:45pm: call from sons to requests I come meet them. I met with sons, Miky and Yahaira Cuenca and a close family friend. Provided update again to Miky as he was not present to here the prior conversation as he was en route driving from [place]. Medical update and prognosis reviewed. Questions answered to their satisfaction. They appreciate time spent. Palliative care number provided. Nursing staff updated. . Advance Directives Living Will: Never completed Health Care Surrogate: Never completed Durable Power of Dry Cleaner Presser: Never completed Advance Directive Specifics Health Care Surrogate(s): Patient is incapacitated and not likely to gain capacity. Per [place] statutes, healthcare proxy decision making falls to his Joselin Loaiza. . Documented care wishes: None known. . Significant change in goals: FULL CODE and continued aggressive care for now. Family considering Code Status. . Objective Vital Signs Date Time Temp Pulse Resp B/P Pulse Ox O2 Delivery O2 Flow Rate FiO2 05/31/17 18:00 101 05/31/17 16:15 99 90 05/31/17 16:00 97.7 100 30 120/52 99 05/31/17 16:00 100 120/52 05/31/17 16:00 90 05/31/17 16:00 100 05/31/17 14:38 99 90 05/31/17 14:00 100 05/31/17 12:00 104 05/31/17 12:00 100 121/50 05/31/17 12:00 99.0 104 28 121/50 99 05/31/17 12:00 90 05/31/17 11:38 99 80 05/31/17 10:00 102 05/31/17 08:22 95 80 05/31/17 08:00 80 05/31/17 08:00 100 110/54 05/31/17 08:00 100 05/31/17 08:00 98.8 100 24 110/54 97 Automatic Cuff 05/31/17 04:18 100 90 05/31/17 04:00 90 05/31/17 04:00 97.0 98 23 99 108/48 05/31/17 01:16 100 90 05/31/17 00:00 99.7 108 26 100 113/52 05/31/17 00:00 90 05/30/17 21:41 100 90 05/30/17 20:00 101 05/30/17 20:00 97.8 102 26 98 98/46 7/19/17 20:00 90 Intake & Output 05/31/17 05/31/17 07:00 19:00 Intake Total 4164 ml 2379 ml Output Total 5135 ml 1273 ml Balance -971 ml 1106 ml Intake IV Total 4164 ml 2356 ml TPN/PPN 23 ml Output Urine Total 5100 ml 1250 ml Drainage Total 35 ml 23 ml # Bowel Movements 0 0 Physical Exam CONSTITUTIONAL/GENERAL: This is an adequately nourished patient, in no apparent distress. TUBES/LINES/DRAINS: ETT, OGT, ventriculostomy, R subclavian TLC, L radial arterial line, [place]. SKIN: No jaundice, rashes, avulsion on right lateral head, dressing intact. EYES: Pupils unequal, right 4mm, left 3mm with questionable reaction. Severe scleral edema bilaterally. Left cornea hazy. Bilateral eye injection with yellow crust on upper and lower las lines. Fundi not examined. ENT: Hearing not assessed due to LOC. Nose without bleeding or purulent drainage. Throat not visualized due to ETT and OGT. NECK: [place] collar in place. CARDIOVASCULAR: Tachycardic. Hypotensive, requires pressor support. RESPIRATORY/CHEST: Course breath sounds noted. GASTROINTESTINAL: Abdomen soft, nondistended. Bowel sounds present. GENITOURINARY: Without palpable bladder distension. [place] catheter in place. MUSCULOSKELETAL: Extremities without clubbing, cyanosis. LLE with splint in place, distal toes warm with good cap refill. NEUROLOGICAL: Unresponsive, lightly sedated on mechanical ventilation. Ventriculostomy leveled at foramen of [place]. [place] red CSF draining. Slight withdraw to pain RLE. PSYCHIATRIC: Unresponsive. . Diagnostic Tests Laboratory Laboratory Tests Test 05/29/17 05/29/17 05/29/17 05/30/17 01:19 06:05 11:11 00:30 Sodium Level 157 MEQ/L 155 MEQ/L 155 MEQ/L 157 MEQ/L (136-145) (136-145) (136-145) (136-145) White Blood Count 7.9 TH/MM3 (4.0-11.0) Red Blood Count 2.66 MIL/MM3 (4.50-5.90) Hemoglobin 8.3 GM/DL (13.0-17.0) Hematocrit 25.1 % (39.0-51.0) Mean Corpuscular Volume 94.4 FL (80.0-100.0) Mean Corpuscular Hemoglobin 31.3 PG (27.0-34.0) Mean Corpuscular Hemoglobin 33.2 % Concent (32.0-36.0) Red Cell Distribution Width 15.3 % (11.6-17.2) Platelet Count 144 TH/MM3 (150-450) Mean Platelet Volume 8.0 FL (7.0-11.0) Neutrophils (%) (Auto) 86.9 % (16.0-70.0) Lymphocytes (%) (Auto) 6.7 % (9.0-44.0) Monocytes (%) (Auto) 6.0 % (0.0-8.0) Eosinophils (%) (Auto) 0.1 % (0.0-4.0) Basophils (%) (Auto) 0.3 % (0.0-2.0) Neutrophils # (Auto) 6.9 TH/MM3 (1.8-7.7) Lymphocytes # (Auto) 0.5 TH/MM3 (1.0-4.8) Monocytes # (Auto) 0.5 TH/MM3 (0-0.9) Eosinophils # (Auto) 0.0 TH/MM3 (0-0.4) Basophils # (Auto) 0.0 TH/MM3 (0-0.2) CBC Comment AUTO DIFF Differential Total Cells 100 Counted Neutrophils % (Manual) 47 % (16-70) Band Neutrophils % 30 % (0-6) Lymphocytes % 6 % (9-44) Monocytes % 4 % (0-8) Neutrophils # (Manual) 7.1 TH/MM3 (1.8-7.7) Metamyelocytes 11 % (0-1) Myelocytes 2 % (0-0) Nucleated Red Blood Cells 4 /100 WBC (0-0) Differential Comment FINAL DIFF MANUAL Platelet Estimate LOW (NORMAL) Platelet Morphology Comment NORMAL (NORMAL) Potassium Level 3.7 MEQ/L (3.5-5.1) Chloride Level 127 MEQ/L (98-107) Carbon Dioxide Level 20.9 MEQ/L (21.0-32.0) Anion Gap 7 MEQ/L (5-15) Blood Urea Nitrogen 16 MG/DL (7-18) Creatinine 0.88 MG/DL (0.60-1.30) Estimat Glomerular Filtration 107 ML/MIN Rate (>89) Random Glucose 159 MG/DL (74-106) Calcium Level 6.7 MG/DL (8.5-10.1) Protein Corrected Calcium 7.9 MG/DL (8.5-10.1) Total Bilirubin 0.7 MG/DL (0.2-1.0) Aspartate Amino Transf 92 U/L (15-37) (AST/SGOT) Alanine Aminotransferase 49 U/L (12-78) (ALT/SGPT) Alkaline Phosphatase 46 U/L (45-117) Total Protein 4.8 GM/DL (6.4-8.2) Albumin 1.6 GM/DL (3.4-5.0) Random Cortisol 59.7 MCG/DL Test 05/30/17 05/30/17 05/30/17 05/30/17 05:20 06:00 09:33 10:30 Blood Gas Puncture Site ART LINE RADHA Blood Gas Patient Temperature 98.6 98.6 Blood Gas HCO3 17 mmol/L 17 mmol/L (22-26) (22-26) Blood Gas Base Excess -9.6 mmol/L -9.3 mmol/L (-2-2) (-2-2) Blood Gas Oxygen Saturation 84 % (90-100) 91 % (90-100) Arterial Blood pH 7.20 7.23 (7.380-7.420) (7.380-7.420) Arterial Blood Partial 46 mmHg (38-42) 42 mmHg (38-42) Pressure CO2 Arterial Blood Partial 55 mmHg 70 mmHg Pressure O2 (61-120) (61-120) Arterial Blood Oxygen Content 9.0 Vol % 9.7 Vol % (12.0-20.0) (12.0-20.0) Arterial Blood 1.2 % (0-4) 1.2 % (0-4) Carboxyhemoglobin Arterial Blood Methemoglobin 0.6 % (0-2) 0.7 % (0-2) Blood Gas Hemoglobin 7.6 G/DL 7.5 G/DL (12.0-16.0) (12.0-16.0) Oxygen Delivery Device VENTILATOR VENT Blood Gas Ventilator Setting [facility]//75 Blood Gas Inspired Oxygen 60 % 90 % White Blood Count 11.5 TH/MM3 (4.0-11.0) Red Blood Count 2.41 MIL/MM3 (4.50-5.90) Hemoglobin 7.5 GM/DL (13.0-17.0) Hematocrit 22.7 % (39.0-51.0) Mean Corpuscular Volume 94.5 FL (80.0-100.0) Mean Corpuscular Hemoglobin 31.1 PG (27.0-34.0) Mean Corpuscular Hemoglobin 32.9 % Concent (32.0-36.0) Red Cell Distribution Width 15.3 % (11.6-17.2) Platelet Count 149 TH/MM3 (150-450) Mean Platelet Volume 8.5 FL (7.0-11.0) Neutrophils (%) (Auto) 88.0 % (16.0-70.0) Lymphocytes (%) (Auto) 4.9 % (9.0-44.0) Monocytes (%) (Auto) 6.8 % (0.0-8.0) Eosinophils (%) (Auto) 0.0 % (0.0-4.0) Basophils (%) (Auto) 0.3 % (0.0-2.0) Neutrophils # (Auto) 10.1 TH/MM3 (1.8-7.7) Lymphocytes # (Auto) 0.6 TH/MM3 (1.0-4.8) Monocytes # (Auto) 0.8 TH/MM3 (0-0.9) Eosinophils # (Auto) 0.0 TH/MM3 (0-0.4) Basophils # (Auto) 0.0 TH/MM3 (0-0.2) CBC Comment AUTO DIFF Differential Total Cells 100 Counted Neutrophils % (Manual) 55 % (16-70) Band Neutrophils % 33 % (0-6) Lymphocytes % 5 % (9-44) Monocytes % 7 % (0-8) Neutrophils # (Manual) 10.1 TH/MM3 (1.8-7.7) Nucleated Red Blood Cells 10 /100 WBC (0-0) Differential Comment FINAL DIFF MANUAL Platelet Estimate NORMAL (NORMAL) Platelet Morphology Comment NORMAL (NORMAL) Sodium Level 157 MEQ/L (136-145) Potassium Level 3.2 MEQ/L (3.5-5.1) Chloride Level 127 MEQ/L (98-107) Carbon Dioxide Level 17.8 MEQ/L (21.0-32.0) Anion Gap 12 MEQ/L (5-15) Blood Urea Nitrogen 19 MG/DL (7-18) Creatinine 0.82 MG/DL (0.60-1.30) Estimat Glomerular Filtration 116 ML/MIN Rate (>89) Random Glucose 63 MG/DL (74-106) Calcium Level 6.8 MG/DL (8.5-10.1) Protein Corrected Calcium 7.9 MG/DL (8.5-10.1) Total Bilirubin 0.8 MG/DL (0.2-1.0) Aspartate Amino Transf 73 U/L (15-37) (AST/SGOT) Alanine Aminotransferase 46 U/L (12-78) (ALT/SGPT) Alkaline Phosphatase 361 U/L (45-117) Total Protein 4.9 GM/DL (6.4-8.2) Albumin 1.6 GM/DL (3.4-5.0) Vancomycin Level Trough 10.5 MCG/ML (5.0-10.0) Blood Type A POSITIVE Antibody Screen NEGATIVE Crossmatch Leukocyte-Reduced Red Blood Cells Blood Bank Comment Test 05/30/17 05/30/17 05/30/17 05/31/17 13:52 13:56 18:26 03:00 Potassium Level 2.9 MEQ/L 2.9 MEQ/L (3.5-5.1) (3.5-5.1) Sodium Level 158 MEQ/L 157 MEQ/L 157 MEQ/L (136-145) (136-145) (136-145) White Blood Count 10.2 TH/MM3 (4.0-11.0) Red Blood Count 2.68 MIL/MM3 (4.50-5.90) Hemoglobin 8.1 GM/DL (13.0-17.0) Hematocrit 24.2 % (39.0-51.0) Mean Corpuscular Volume 90.2 FL (80.0-100.0) Mean Corpuscular Hemoglobin 30.2 PG (27.0-34.0) Mean Corpuscular Hemoglobin 33.5 % Concent (32.0-36.0) Red Cell Distribution Width 17.3 % (11.6-17.2) Platelet Count 124 TH/MM3 (150-450) Mean Platelet Volume 7.8 FL (7.0-11.0) Neutrophils (%) (Auto) 88.4 % (16.0-70.0) Lymphocytes (%) (Auto) 4.8 % (9.0-44.0) Monocytes (%) (Auto) 6.5 % (0.0-8.0) Eosinophils (%) (Auto) 0.0 % (0.0-4.0) Basophils (%) (Auto) 0.3 % (0.0-2.0) Neutrophils # (Auto) 9.0 TH/MM3 (1.8-7.7) Lymphocytes # (Auto) 0.5 TH/MM3 (1.0-4.8) Monocytes # (Auto) 0.7 TH/MM3 (0-0.9) Eosinophils # (Auto) 0.0 TH/MM3 (0-0.4) Basophils # (Auto) 0.0 TH/MM3 (0-0.2) CBC Comment AUTO DIFF Differential Total Cells 100 Counted Neutrophils % (Manual) 66 % (16-70) Band Neutrophils % 20 % (0-6) Lymphocytes % 5 % (9-44) Monocytes % 9 % (0-8) Neutrophils # (Manual) 8.8 TH/MM3 (1.8-7.7) Nucleated Red Blood Cells 7 /100 WBC (0-0) Differential Comment FINAL DIFF MANUAL Toxic Vacuolation PRESENT (NONE SEEN) Dohle Bodies PRESENT (NONE SEEN) Platelet Estimate LOW (NORMAL) Platelet Morphology Comment NORMAL (NORMAL) Ovalocytes (NORMAL) Acanthocytes OCC (NORMAL) Chloride Level 123 MEQ/L (98-107) Carbon Dioxide Level 20.6 MEQ/L (21.0-32.0) Anion Gap 13 MEQ/L (5-15) Blood Urea Nitrogen 18 MG/DL (7-18) Creatinine 0.88 MG/DL (0.60-1.30) Estimat Glomerular Filtration 107 ML/MIN Rate (>89) Random Glucose 208 MG/DL (74-106) Calcium Level 6.8 MG/DL (8.5-10.1) Protein Corrected Calcium 8.0 MG/DL (8.5-10.1) Total Bilirubin 0.9 MG/DL (0.2-1.0) Aspartate Amino Transf 64 U/L (15-37) (AST/SGOT) Alanine Aminotransferase 44 U/L (12-78) (ALT/SGPT) Alkaline Phosphatase 58 U/L (45-117) Total Protein 4.8 GM/DL (6.4-8.2) Albumin 1.6 GM/DL (3.4-5.0) Test 05/31/17 05/31/17 09:55 11:50 Blood Gas Puncture Site ART LINE Blood Gas Patient Temperature 98.6 Blood Gas HCO3 19 mmol/L (22-26) Blood Gas Base Excess -6.4 mmol/L (-2-2) Blood Gas Oxygen Saturation 89 % (90-100) Arterial Blood pH 7.29 (7.380-7.420) Arterial Blood Partial 41 mmHg (38-42) Pressure CO2 Arterial Blood Partial 60 mmHg Pressure O2 (61-120) Arterial Blood Oxygen Content 10.3 Vol % (12.0-20.0) Arterial Blood 1.4 % (0-4) Carboxyhemoglobin Arterial Blood Methemoglobin 0.7 % (0-2) Blood Gas Hemoglobin 8.2 G/DL (12.0-16.0) Oxygen Delivery Device VENTILATOR Blood Gas Ventilator Setting AC Blood Gas Inspired Oxygen 80 % Sodium Level 157 MEQ/L (136-145) Potassium Level 3.3 MEQ/L (3.5-5.1) Result Diagram: 05/31/17 0300 05/31/17 1150 Microbiology Microbiology Date/Time Procedure Status Source Growth 05/28/17 22:55 Urine Culture - Final Complete Urine Catheterized Urine NO GROWTH IN 48 HOURS. 05/29/17 00:00 Aerobic Blood Culture - Preliminary Resulted Blood Peripheral NO GROWTH IN 2 DAYS 05/29/17 00:00 Anaerobic Blood Culture - Final Resulted Blood Peripheral QNS - SEE AEROBE REPORT Imaging Last Impressions Head CT 05/29/17599 Signed Impressions: Service Date/Time: Monday, May 29, 2017 04:38 - CONCLUSION: 1. There continues to be severe traumatic brain injury with areas of parenchymal hemorrhage in the right temporal lobe and right frontal lobe with surrounding edema. 2. Bilateral subarachnoid hemorrhage 3. Cerebral edema 4. Mild midline shift to the left by approximately 3 mm. 5. New area of decreased density in the left cerebellar hemisphere suggestive of an area of nonhemorrhagic infarction. Matthew Hurtado MD Chest X-Ray 7/17/17 0600 Signed Impressions: Service Date/Time: Sunday, May 28, 2017 03:40 - CONCLUSION: 1. Increasing right lower lung infiltrate. 2. Stable left lower lung infiltrate. Matthew Hurtado MD Foot X-Ray 05/27/17 0000 Signed Impressions: Service Date/Time: Saturday, May 27, 2017 17:16 - CONCLUSION: Chronic changes and no evidence for acute fracture. Chandrakant Jerry MD Neck CTA 05/26/17 0000 Signed Impressions: Service Date/Time: Friday, May 26, 2017 08:25 - CONCLUSION: No evidence of acute vascular injury, intimal dissection, aneurysm or restricted flow. James Blood MD Pelvis X-Ray 05/25/172317 Signed Impressions: Service Date/Time: Thursday, May 25, 2017 22:55 - CONCLUSION: No discrete fracture lucencies. Andrae Anderson MD Chest CT 05/25/172317 Signed Impressions: Service Date/Time: Thursday, May 25, 2017 23:35 - CONCLUSION: 1. Severe emphysematous changes are noted with bullous emphysematous disease in the upper lobes left greater than right. 2. Patchy pulmonary contusion is suspected. 3. Nonobstructing left renal calculi and bilateral renal cysts. 4. Extensive displaced and comminuted left scapular fractures as well as multiple left- sided rib fractures and T7 transverse process fracture on the left. Andrae Anderson MD Cervical Spine CT 05/25/172317 Signed Impressions: Service Date/Time: Thursday, May 25, 2017 23:26 - CONCLUSION: 1. Fracture through the left occipital condyle and occiput. 2. Left C2 lateral mass nondisplaced fracture. 3. Left sided C7 fractures as described above. Andrae Anderson MD Abdomen/Pelvis CT 05/25/172317 Signed Impressions: Service Date/Time: Thursday, May 25, 2017 23:32 - CONCLUSION: 1. Bilateral renal cysts and nonobstructing left renal calculi. 2. Minimal basilar parenchymal infiltrates at the lung bases. 3. Splenic atrophy. 4. Left L2 and L3 transverse process fractures. 5. Right sacral fracture with diastasis of the SI joint on the right as well as the pubic symphysis. Andrae Anderson MD Tibia/Fibula X-Ray 05/25/17 0000 Signed Impressions: Service Date/Time: Thursday, May 25, 2017 22:55 - CONCLUSION: Heavily comminuted and displaced fractures of the tibia and fibula. Andrae Anderson MD Procedures 05/25/17: Intubated 05/26/17: [place] placed, Nimbex gtt started 05/27/17: ventriculostomy placed Assessment and Plan Disease Oriented Problem List: (1) Major neurocognitive disorder as late effect of traumatic brain injury without behavioral disturbance (2) Closed head injury (3) Subarachnoid hemorrhage (4) Pulmonary contusion (5) Traumatic closed displaced fracture of shaft of left tibia and fibula (6) Ribs, multiple fractures (7) C2 cervical fracture (8) C7 cervical fracture (9) L2 vertebral fracture (10) T7 vertebral fracture (11) L3 vertebral fracture (12) Traumatic diastasis of symphysis pubis (13) Fracture of left occipital condyle (14) Sacral fracture (15) Fracture of occiput (16) Left scapula fracture (17) Intraparenchymal hemorrhage of brain (18) Pneumonia (19) COPD (chronic obstructive pulmonary disease) Symptom Scale: (1) Pain 0-10 Scale: Unable to quantify Comment: sedated (2) Dyspnea 0-10 Scale: Unable to quantify Comment: on mech vent FiO2 90% Pertinent Non-Medical Issues Psychosocial: , 2 sons. Supported by 2 sisters and 1 brother. Spiritual:Amish is very important to the patient. Family is well supported by local churches. Legal: Patient is incapacitated and not likely to gain capacity. Per [place] statutes, health care proxy decision making falls to his Joselin Loaiza. Ethical issues impacting care: No known concerns at this time. . Important Contacts * Spouse: Joselin Loaiza [phone] * Sister; Dr. Irene Loaiza [phone] * Sister: Jayne Fadia [phone] * Brother: Mohsen Loaiza [phone] and his Destiny Loaiza [phone] . Prognosis Patient is incapacitated and not likely to regain capacity. Per [place] statutes , legal decision making falls to his . Code Status: Full Code Plan * Patient is incapacitated and not likely to gain capacity. Per [place] statutes , health care proxy decision making falls to his Joselin Loaiza. * FULL CODE * Multiple family meetings today with , 2 sons, neices and nephew, 2 sisters , brother 2 clergy members and other various family. They all have a good understanding of condition and poor prognosis. desires contineud aggressive care, all other family does not feel he would want to live like this. 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 Sedated appears comfortable. Dyspnea: high O2 needs on mech vent. * Palliative care will continue to follow to clarify goals and assist with symptom management. . Time Spent Total Floor Time (mins): 180 Face to Face Time (mins): 150 >50% Counseling/Coord of Care: Yes Attestation To help prompt me to consider important information that might be impacting today's encounter and assessment, information from prior notes written by myself or my colleagues may have been "brought forward" into today's note. My signature on this note, however, is an attestation that I personally performed the exam, history, and/or decision-making noted today, and, unless otherwise indicated, the interactions with patient, family, and staff as well as the review of records all occurred today. I also attest that the listed assessment and stated plan reflect my best clinical judgment today based on the combination of historical information, prior notes, and today's exam/ interactions. When time spent is documented, it refers only to time spent today by the signer, or if indicated, combined time spent today by collaborating physician/nurse practitioner. Kristina Moreno May 31, 2017 19:17
[2017-05-31] MEDS: MAGNESIUM HYDROXIDE SUSP 30 ML CUP PO SCH (20:02)
[2017-05-31] MEDS: PANTOPRAZOLE SODIUM 40 MG VIAL IVP SCH (22:43)
[2017-06-01] VITALS (14 sets, daily range): BP systolic 108–139; BP diastolic 48–64; PULSE 91–103; RESP 28–30; TEMP 97.3–99.2; O2SAT 92–100
[2017-06-01] MEDS: PIPERACIL-TAZO 4.5 GM PREMIX 100 ML IV SCH ×4 (02:00→20:04)
[2017-06-01] MEDS: fentaNYL DRIP 250 ML IV SCH ×2 (02:00→17:21)
[2017-06-01] MEDS: PHENYLEPHRINE INJ 160 MG in SODIUM CHLORID 0.9% 500 ML INJ 484 ML IV SCH ×2 (02:01→11:27)
[2017-06-01] MEDS: RESP: ALBUTEROL 2.5 MG/IPRATROPIUM 0.5 MG NEB (SCH) NEB ×4 (03:22→21:23)
[2017-06-01 05:00] LABS: BLOOD GAS BASE EXCESS -7.1 mmol/L (-2-2); BLOOD GAS CARBOXYHEMOGLOBIN 1.5 % (0-4); BLOOD GAS HCO3 18 mmol/L (22-26); BLOOD GAS METHEMOGLOBIN 0.6 % (0-2); BLOOD GAS O2 HGB SATURATION 92 % (90-100); BLOOD GAS OXYGEN CONTENT 10.2 Vol % (12.0-20.0); BLOOD GAS PCO2 40 mmHg (38-42); BLOOD GAS PO2 72 mmHg (61-120); BLOOD GAS TOTAL HGB 7.8 G/DL (12.0-16.0); TEMP CORR TO 98.6
[2017-06-01 05:01] LABS: CRITICAL VALUE YES; OXYGEN DEVICE VENTILATOR
[2017-06-01 05:02] LABS: DRAW SITE ART LINE; FIO2 90 %; STAT NO; ULNAR PULSE PRESENT; VENT SETTINGS PRVC26/600/0.75/+12
[2017-06-01 05:16] LABS: AUTOMATED NEUTROPHIL # 9.5 TH/MM3 (1.8-7.7); BASOPHIL % 0.2 % (0.0-2.0); EOSINOPHIL % 0.1 % (0.0-4.0); HEMATOCRIT 22.4 % (39.0-51.0); LYMPH % 4.7 % (9.0-44.0); LYMPHOCYTE # 0.5 TH/MM3 (1.0-4.8); MEAN CELL VOLUME 89.4 FL (80.0-100.0); MEAN CORPUSCULAR HEMOGLOBIN 30.2 PG (27.0-34.0); MEAN CORPUSCULAR HGB CONC 33.8 % (32.0-36.0); MONO % 6.8 % (0.0-8.0); NEUT % 88.2 % (16.0-70.0); PLATELET COUNT 90 TH/MM3 (150-450); RED BLOOD COUNT 2.51 MIL/MM3 (4.50-5.90); RED CELL DISTRIBUTION WIDTH 17.5 % (11.6-17.2); WHITE BLOOD COUNT 10.8 TH/MM3 (4.0-11.0)
[2017-06-01 05:28] LABS: HEMO FLAGS AUTO DIFF
[2017-06-01 05:54] LABS: BICARBONATE 18.6 MEQ/L (21.0-32.0)
[2017-06-01] MEDS: POTASSIUM CHLOR 40 MEQ PREMIX 100 ML IV PRN ×3 (06:50→18:07)
[2017-06-01 06:51] LABS: CALCIUM-PROTEIN CORRECTED 8.6 MG/DL (8.5-10.1)
[2017-06-01] MEDS: INSULIN ASPART SUPPLEMENTAL SCALE SQ SCH ×4 (06:51→21:00)
--- NOTE | 2017-06-01 07:31 | RADRPT ---
EXAM DATE/TIME: 06/01/2017 06:35 [facility] COMPARISON: CHEST SINGLE AP, May 28, 2017, 3:40. INDICATIONS : Infiltrate MEDICAL HISTORY : None. SURGICAL HISTORY : None. ENCOUNTER: Subsequent ACUITY: 1 week PAIN SCORE: Non-responsive. LOCATION: Bilateral chest FINDINGS: Significant increase in air space disease is noted in both lungs compared to the earlier study. No co nsolidating infiltrate is predominantly centrally located in a perihilar distribution. Endotracheal and nasogastric tubes are in stable position. Heart and mediastinal set structures are stable. CONCLUSION: Marked worsening in the appearance the chest with increasing airspace disease characteristic of acute pulmonary edema or fulminant pneumonitis. James Blood MD on June 01, 2017 at 7:28 Board Certified Radiologist. This report was verified electronically.
[2017-06-01 07:44] LABS: BANDS 29 % (0-6); CORRECTED NUCLEATED RBC 15 /100 WBC (0-0); NEUTROPHIL # MANUAL DIFF 9.7 TH/MM3 (1.8-7.7); POLYS (SEG NEUTROPHILS) 61 % (16-70); WBC DIFF SAMPLE 100
[2017-06-01 07:47] LABS: ACANTHOCYTES OCC (NORMAL); OVALOCYTES 1+ (NORMAL); PLATELET ESTIMATE SMEAR LOW (NORMAL); PLATELET MORPHOLOGY NORMAL (NORMAL); SCAN/DIFF FINAL DIFF MANUAL
[2017-06-01] MEDS: CHLORHEXIDINE 0.12% (ORAL KIT) 15 ML CUP MT SCH ×2 (07:56→20:04)
[2017-06-01] MEDS: ARTIFICIAL TEARS OPTH OINT 3.5 APPLIC/3.5 GM TUBO EACH EYE SCH ×3 (08:48→17:21)
[2017-06-01] MEDS: LACTULOSE SYRUP 20 GM/30 ML CUP PO SCH (08:49)
[2017-06-01] MEDS: levETIRAcetam INJ 500 MG in SODIUM CHLORIDE 0.9% INJ 100 ML IV SCH ×2 (08:49→20:03)
[2017-06-01] MEDS: DOCUSATE SODIUM 100 MG CAP PO SCH ×2 (08:49→20:04)
[2017-06-01] MEDS: VASOPRESSIN INJ 40 UNITS in DEXTROSE 5% IN WATER 100ML INJ 98 ML IV SCH ×2 (08:49)
[2017-06-01] MEDS: BACITRACIN/POLYMYXIN B 15 GM TUBE TOPICAL SCH ×2 (08:49→20:04)
[2017-06-01] MEDS ORDERED: BISACODYL 10 MG SUPP RECTAL PRN (10:00)
[2017-06-01] MEDS ORDERED: PHARMACY ORDERED LAB ONE (10:45)
[2017-06-01] MEDS: VANCOMYCIN INJ 2,250 MG in SODIUM CHLORID 0.9% 500 ML INJ 500 ML IV SCH (11:14)
--- NOTE | 2017-06-01 11:44 | HHI.NSPN ---
(Jose G Garner) History Chief Complaint: Severe TBI. 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 ICP currently 5. Pt has not gone for a follow up CT head. 05/27: Pt sedated on Diprivan, Fentanyl, and Nimbex. ICPs 13 via zuri bolt. Pt on Federico, Levo, and Vaso pressor drips. Intubated. Saline J collar remains in place. 05/28: Pt sedated on Diprivan, Fentanyl, and Versed drips. Off Nimbex drip. ICP9. Ventriculostomy drain and zuri bolt in place Pupils 3mm bilaterally, reactive bilaterally. 05/29: Pt sedated on Fentanyl and Versed drips. ICP 12-16 range. Pupils 3mm bilaterally. Reactive bilaterally. Not following commands. Pt on Neosynephrine, Vasopressin, and Levophed to keep CPP greater than 60 05/30: Pt sedated on Fentanyl and versed drips. ICP 9. Right pupil 3 mm left pupil 2.5 mm. Right pupil reactive left pupil questionable reactive. Not following commands. Patient remains on Federico-Synephrine vasopressin we will drips to keep CPP greater than 60. 05/31: Pt sedated on Fentanyl and Versed drips. Not opening eyes. Pupils 3mm bilaterally right reactive left NR. Not following commands. 06/01: Pt sedated on Fentanyl and Versed drips. Not opening eyes. Pupils 3mm right slight reaction. Left NR. Not following commands. (Jose G Garner) System Review Comments Not able to obtain given clinical condition. (Jose G Garner) Exam Results Vital Signs Date Time Temp Pulse Resp B/P Pulse Ox O2 Delivery O2 Flow Rate FiO2 06/01/17 10:00 103 06/01/17 09:10 99 90 06/01/17 08:00 139/60 06/01/17 08:00 99.2 28 05/28/17 07:00 Mechanical Ventilator Intake and Output 05/31/17 05/31/17 06/01/17 08:00 16:00 00:00 Intake Total 2148 ml 2379 ml 1735 ml Output Total 1571 ml 1273 ml 1307 ml Balance 577 ml 1106 ml 428 ml (Jose G Garner) Physical Examination Resp: Mild coarse bs bilaterally. Intubated. Pressure controlled. Rate 26. Peep 12. FiO2 90% Heart Mild Sinus tachycardia. no murmurs. Pt on Federico and vasopressin drips. Off Levophed Abd: Soft positive diminished bs Skin: No cyanosis or erythema. LLE splinted and bandaged. Muscle: No response to deep pain in upper chest. Neuro: Pt sedated on Fentanyl, and Versed drips. Not opening eyes or following commands. Pupils 3mm bilaterally Right reactive left nonreactive. Ventriculostomy drain in place at 5cmH20 with bloody CSF drainage and ICP 5-9 range. No response to pain. (Jose G Garner) Lab, Micro, Other Results Last Impressions Chest X-Ray 06/01/17 0600 Signed Impressions: Service Date/Time: Thursday, June 01, 2017 06:35 - CONCLUSION: Marked worsening in the appearance the chest with increasing airspace disease characteristic of acute pulmonary edema or fulminant pneumonitis. James Blood MD Head CT 05/29/17 0600 Signed Impressions: Service Date/Time: Monday, May 29, 2017 04:38 - CONCLUSION: 1. There continues to be severe traumatic brain injury with areas of parenchymal hemorrhage in the right temporal lobe and right frontal lobe with surrounding edema. 2. Bilateral subarachnoid hemorrhage 3. Cerebral edema 4. Mild midline shift to the left by approximately 3 mm. 5. New area of decreased density in the left cerebellar hemisphere suggestive of an area of nonhemorrhagic infarction. Matthew Hurtado MD Foot X-Ray 05/27/17 0000 Signed Impressions: Service Date/Time: Saturday, May 27, 2017 17:16 - CONCLUSION: Chronic changes and no evidence for acute fracture. Chandrakant Jerry MD Neck CTA 05/26/17 0000 Signed Impressions: Service Date/Time: Friday, May 26, 2017 08:25 - CONCLUSION: No evidence of acute vascular injury, intimal dissection, aneurysm or restricted flow. James Blood MD Pelvis X-Ray 05/25/172317 Signed Impressions: Service Date/Time: Thursday, May 25, 2017 22:55 - CONCLUSION: No discrete fracture lucencies. Andrae Anderson MD Chest CT 05/25/172317 Signed Impressions: Service Date/Time: Thursday, May 25, 2017 23:35 - CONCLUSION: 1. Severe emphysematous changes are noted with bullous emphysematous disease in the upper lobes left greater than right. 2. Patchy pulmonary contusion is suspected. 3. Nonobstructing left renal calculi and bilateral renal cysts. 4. Extensive displaced and comminuted left scapular fractures as well as multiple left- sided rib fractures and T7 transverse process fracture on the left. Andrae Anderson MD Cervical Spine CT 05/25/172317 Signed Impressions: Service Date/Time: Thursday, May 25, 2017 23:26 - CONCLUSION: 1. Fracture through the left occipital condyle and occiput. 2. Left C2 lateral mass nondisplaced fracture. 3. Left sided C7 fractures as described above. Andrae Anderson MD Abdomen/Pelvis CT 05/25/172317 Signed Impressions: Service Date/Time: Thursday, May 25, 2017 23:32 - CONCLUSION: 1. Bilateral renal cysts and nonobstructing left renal calculi. 2. Minimal basilar parenchymal infiltrates at the lung bases. 3. Splenic atrophy. 4. Left L2 and L3 transverse process fractures. 5. Right sacral fracture with diastasis of the SI joint on the right as well as the pubic symphysis. Andrae Anderson MD Tibia/Fibula X-Ray 05/25/17 0000 Signed Impressions: Service Date/Time: Thursday, May 25, 2017 22:55 - CONCLUSION: Heavily comminuted and displaced fractures of the tibia and fibula. Andrae Anderson MD Laboratory Tests Test 05/31/17 05/31/17 06/01/17 06/01/17 11:50 19:00 04:53 05:00 Sodium Level 157 MEQ/L 158 MEQ/L 159 MEQ/L Potassium Level 3.3 MEQ/L 3.0 MEQ/L Blood Gas Puncture Site ART LINE Blood Gas Patient Temperature 98.6 Blood Gas HCO3 18 mmol/L Blood Gas Base Excess -7.1 mmol/L Blood Gas Oxygen Saturation 92 % Arterial Blood pH 7.29 Arterial Blood Partial 40 mmHg Pressure CO2 Arterial Blood Partial 72 mmHg Pressure O2 Arterial Blood Oxygen Content 10.2 Vol % Arterial Blood 1.5 % Carboxyhemoglobin Arterial Blood Methemoglobin 0.6 % Blood Gas Hemoglobin 7.8 G/DL Oxygen Delivery Device VENTILATOR Blood Gas Ventilator Setting PRVC26/600/0.75/+12 Blood Gas Inspired Oxygen 90 % White Blood Count 10.8 TH/MM3 Red Blood Count 2.51 MIL/MM3 Hemoglobin 7.6 GM/DL Hematocrit 22.4 % Mean Corpuscular Volume 89.4 FL Mean Corpuscular Hemoglobin 30.2 PG Mean Corpuscular Hemoglobin 33.8 % Concent Red Cell Distribution Width 17.5 % Platelet Count 90 TH/MM3 Mean Platelet Volume 8.4 FL Neutrophils (%) (Auto) 88.2 % Lymphocytes (%) (Auto) 4.7 % Monocytes (%) (Auto) 6.8 % Eosinophils (%) (Auto) 0.1 % Basophils (%) (Auto) 0.2 % Neutrophils # (Auto) 9.5 TH/MM3 Lymphocytes # (Auto) 0.5 TH/MM3 Monocytes # (Auto) 0.7 TH/MM3 Eosinophils # (Auto) 0.0 TH/MM3 Basophils # (Auto) 0.0 TH/MM3 CBC Comment AUTO DIFF Differential Total Cells 100 Counted Neutrophils % (Manual) 61 % Band Neutrophils % 29 % Lymphocytes % 3 % Monocytes % 7 % Neutrophils # (Manual) 9.7 TH/MM3 Nucleated Red Blood Cells 15 /100 WBC Differential Comment FINAL DIFF MANUAL Platelet Estimate LOW Platelet Morphology Comment NORMAL Ovalocytes 1+ Acanthocytes OCC Chloride Level 126 MEQ/L Carbon Dioxide Level 18.6 MEQ/L Anion Gap 14 MEQ/L Blood Urea Nitrogen 24 MG/DL Creatinine 0.89 MG/DL Estimat Glomerular Filtration 105 ML/MIN Rate Random Glucose 275 MG/DL Calcium Level 7.3 MG/DL Protein Corrected Calcium 8.6 MG/DL Total Protein 4.8 GM/DL Test 06/01/17 10:45 Vancomycin Level Trough 20.9 MCG/ML 05/31/17 05/31/17 06/01/17 15:00 23:00 07:00 Intake Total 2379 ml 1735 ml 1832 ml Output Total 1273 ml 1307 ml 1208 ml Balance 1106 ml 428 ml 624 ml Intake IV Total 2356 ml 1735 ml 1832 ml TPN/PPN 23 ml Output Urine Total 1250 ml 1300 ml 1200 ml Drainage Total 23 ml 7 ml 8 ml # Bowel Movements 0 0 0 (Jose G Garner) Medical Decision Making Impression and Plan A: 62 y/o M with severe TBI with small right SDH and multiple cerebral contusions. ICPs currently controlled with Fentanyl, and versed drips. Pt on Vasopressin and Neosynephrine to keep CPP greater than 60. P: Pts orthopedic surgery placed on hold given his severe TBI and follow up CT findings. continue with ICP monitor and control with sedation with Fentanyl, and Versed drips. continue with close neuro checks Continue with critical care. (Jose G Garner) Attending Statement The exam, history, and the medical decision-making described in the above note were completed with the assistance of the mid-level provider. I reviewed and agree with the findings presented. I attest that I had a [id number] encounter with the patient on the same day, and personally performed and documented my assessment and findings in the medical record. No improvement in exam with normal ICP and ventric draining well. Ventilation/oxygenation remains a challenge. Overall poor prognosis. Discussed with family at bedside. (Trevon Duran MD) Jose G Garner Jun 01, 2017 11:44 Trevon Duran MD Jun 01, 2017 18:54
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
[2017-06-01 13:12] LABS: POTASSIUM 3.4 MEQ/L (3.5-5.1)
--- NOTE | 2017-06-01 13:50 | HHI.PR ---
Neuropsych Emotional Emotional: UnabletoAssess: Emotional, Anxious/Fearful, Depressed/Sad, Hostile/ Resentful, Irritable/Angry/Frustrate, Labile, Constricted/Blunted Behavior Behavior: Unable to Asses: Behavior, Coping/Acceptance, Cooperative w/ Treatment, Motivation, Frustration Tolerance/[place], Impulsive/Agitated, Suicidal/ Homicidal Risk Cognitive Cognitive: Unable to Asses: Cognitive, Attention/Concentration, Confused/ Orientation, Insight/Awareness, Judgement/Problem-Solving, Memory Psychosocial Psychosocial: Severe: Realistic Expectation Progress Notes/Response to Tx Contents of Sessions: Adjustment Time with Patient: 15 minutes Premorbid psychological status Premorbid Cognitive, Emotional and Behavioral Status: Unable to Assess. The patient was unable to answer questions and there was no family present. Behavioral Reactions of Patient and Family/Support System: Unable to Assess. The patients family is experiencing ongoing issues of adjustment given the nature of the injury, and this aspect of recovery will require ongoing monitoring. Emotional/Behavioral Status of Patient and Family/Support System: Unable to Assess. Pertinent issues, if appropriate to this patients clinical care, are described in detail above. Maximizing acute care outcome It is recommended that the patient be monitored for emergent behavioral impulsivity as the medical condition evolves. This patients neuropathological challenges may limit their rehabilitation potential going forward, and these challenges will require specialized therapeutic skills to maximize outcome. Additionally, the patients family is experiencing ongoing issues of adjustment given the traumatic nature of the injury, and they may benefit from ongoing psychological assistance. Anticipated Problems Ongoing areas of concern will include behavioral impulsivity, lack of insight and judgment, which is expected to improve with time and treatment. Presently , the patient is intubated and sedated. Treatment Plan This clinician will continue to follow with you throughout the course of this patients acute care treatment, and I will be available to meet with the patient s family/support system to facilitate their understanding and the ongoing care of their family member. The goals of neuropsychological intervention shall be both educational and supportive to the family/support system as is deemed clinically appropriate. [facility] Level: I:No response-total assistance Impression This patient suffered a severe traumatic brain injury and is expected to experience ongoing residual neurocognitive deficits going forward. Diagnosis: (1) Major neurocognitive disorder as late effect of traumatic brain injury without behavioral disturbance Status: Acute Progress Note Narrative Ongoing follow-up of patient seen during daily trauma rounds. This is day 7 post injury. The patient has made no neurological or neurobehavioral improvement, and remains a [place]. Prognosis is very poor for any chance of a meaningful neurobehavioral recovery. I will continue to follow. Crispin Montalvo PhD Jun 01, 2017 1:50 pm
--- NOTE | 2017-06-01 13:56 | HHI.HCPN ---
Reason for visit a. To assist with evaluation and management of symptoms including: Dyspnea, pain b. To assist medical decision maker(s) with: better understanding of current medical conditions; weighing benefits/burdens of medical treatment options; making medical treatment decisions. Subjective/Interval History Patient is seen and examined in ICU. No family at bedside. Discussed with nurse , Dr. Sellers, Dr. Sloan and powerhouse laborer. Patient remains sedated (Fentanyl 150 ) on mech vent (FiO2 90%, PEEP 12). Unresponsive. Not tolerating tube feeding well, tube feeding at 10cc/hr. Tmax 99.2. Tachycardic. WBC 10.8, Hemoglobin 7.6, hematocrit 22.4, platelets 90. Total protein 4.8. Chest x-ray with market worsening an appearance with increasing airspace disease characteristic of acute pulmonary edema or fulminant pneumonitis. . Family/friend interactions Called family to determine when they may be at the hospital for follow-up conversation, sister Dr. Bonilla freda indicates family should be arriving around 3 PM. Offered veterans pinning ceremony, she is very pleased. Will arrange for veterans pinning at 4 PM, family, Dr. Sloan, powerhouse laborer and palliative care aware. 4pm: [place] pinning completed with about 30 friends and family. Goals remain aggressive. . Advance Directives Living Will: Never completed Health Care Surrogate: Never completed Durable Power of Velvet Cutter: Never completed Advance Directive Specifics Health Care Surrogate(s): Patient is incapacitated and not likely to gain capacity. Per [place] statutes, healthcare proxy decision making falls to his Joselin Loaiza. . Documented care wishes: None known. . Significant change in goals: FULL CODE. Goals remain aggressive. . Objective Vital Signs Date Time Temp Pulse Resp B/P Pulse Ox O2 Delivery O2 Flow Rate FiO2 06/01/17 12:00 100 135/58 06/01/17 12:00 98 06/01/17 12:00 98.1 98 30 135/58 92 06/01/17 12:00 90 06/01/17 10:00 103 06/01/17 09:10 99 90 06/01/17 08:00 103 06/01/17 08:00 100 139/60 06/01/17 08:00 90 06/01/17 08:00 99.2 102 28 139/60 100 06/01/17 04:16 100 90 06/01/17 04:00 100 108/48 06/01/17 04:00 90 06/01/17 04:00 98.6 98 28 130/56 99 06/01/17 01:19 100 90 06/01/17 00:00 100 108/48 06/01/17 00:00 90 06/01/17 00:00 97.4 100 28 129/55 100 05/31/17 22:21 100 90 05/31/17 20:22 100 90 05/31/17 20:00 100 108/48 05/31/17 20:00 98.0 102 29 108/48 99 05/31/17 20:00 90 05/31/17 20:00 104 05/31/17 18:00 101 05/31/17 16:15 99 90 05/31/17 16:00 97.7 100 30 120/52 99 05/31/17 16:00 100 120/52 05/31/17 16:00 90 05/31/17 16:00 100 05/31/17 14:38 99 90 05/31/17 14:00 100 Intake & Output 06/01/17 06/01/17 07:00 19:00 Intake Total 3567 ml Output Total 2515 ml Balance 1052 ml Intake IV Total 3567 ml Output Urine Total 2500 ml Drainage Total 15 ml # Bowel Movements 0 Physical Exam CONSTITUTIONAL/GENERAL: This is an adequately nourished patient, in no apparent distress. TUBES/LINES/DRAINS: ETT, OGT, ventriculostomy, R subclavian TLC, L radial arterial line, Eld[place]. SKIN: No jaundice, rashes, avulsion on right lateral head, dressing intact. EYES: Pupils unequal, right 4mm, left 3mm with questionable reaction. Severe scleral edema bilaterally. Left cornea hazy. Bilateral eye injection with yellow crust on upper and lower las lines. Fundi not examined. ENT: Hearing not assessed due to LOC. Nose without bleeding or purulent drainage. Throat not visualized due to ETT and OGT. NECK: Jerome collar in place. CARDIOVASCULAR: Tachycardic. Hypotensive, requires pressor support. RESPIRATORY/CHEST: Course breath sounds noted. GASTROINTESTINAL: Abdomen soft, nondistended. Bowel sounds hypoactive. GENITOURINARY: Without palpable bladder distension. Eldridge catheter in place. MUSCULOSKELETAL: Extremities without clubbing, cyanosis. LLE with splint in place. NEUROLOGICAL: Unresponsive, lightly sedated on mechanical ventilation. Ventriculostomy leveled at foramen of [place]. [place] red CSF draining. Slight withdraw to pain RLE. PSYCHIATRIC: Unresponsive. . Diagnostic Tests Laboratory Laboratory Tests Test 05/30/17 05/30/17 05/30/17 05/30/17 00:30 05:20 06:00 09:33 Sodium Level 157 MEQ/L 157 MEQ/L (136-145) (136-145) Blood Gas Puncture Site ART LINE RADHA Blood Gas Patient Temperature 98.6 98.6 Blood Gas HCO3 17 mmol/L 17 mmol/L (22-26) (22-26) Blood Gas Base Excess -9.6 mmol/L -9.3 mmol/L (-2-2) (-2-2) Blood Gas Oxygen Saturation 84 % (90-100) 91 % (90-100) Arterial Blood pH 7.20 7.23 (7.380-7.420) (7.380-7.420) Arterial Blood Partial 46 mmHg (38-42) 42 mmHg (38-42) Pressure CO2 Arterial Blood Partial 55 mmHg 70 mmHg Pressure O2 (61-120) (61-120) Arterial Blood Oxygen Content 9.0 Vol % 9.7 Vol % (12.0-20.0) (12.0-20.0) Arterial Blood 1.2 % (0-4) 1.2 % (0-4) Carboxyhemoglobin Arterial Blood Methemoglobin 0.6 % (0-2) 0.7 % (0-2) Blood Gas Hemoglobin 7.6 G/DL 7.5 G/DL (12.0-16.0) (12.0-16.0) Oxygen Delivery Device VENTILATOR VENT Blood Gas Ventilator Setting PRVC/AC PRVC//600/.75 Blood Gas Inspired Oxygen 60 % 90 % White Blood Count 11.5 TH/MM3 (4.0-11.0) Red Blood Count 2.41 MIL/MM3 (4.50-5.90) Hemoglobin 7.5 GM/DL (13.0-17.0) Hematocrit 22.7 % (39.0-51.0) Mean Corpuscular Volume 94.5 FL (80.0-100.0) Mean Corpuscular Hemoglobin 31.1 PG (27.0-34.0) Mean Corpuscular Hemoglobin 32.9 % Concent (32.0-36.0) Red Cell Distribution Width 15.3 % (11.6-17.2) Platelet Count 149 TH/MM3 (150-450) Mean Platelet Volume 8.5 FL (7.0-11.0) Neutrophils (%) (Auto) 88.0 % (16.0-70.0) Lymphocytes (%) (Auto) 4.9 % (9.0-44.0) Monocytes (%) (Auto) 6.8 % (0.0-8.0) Eosinophils (%) (Auto) 0.0 % (0.0-4.0) Basophils (%) (Auto) 0.3 % (0.0-2.0) Neutrophils # (Auto) 10.1 TH/MM3 (1.8-7.7) Lymphocytes # (Auto) 0.6 TH/MM3 (1.0-4.8) Monocytes # (Auto) 0.8 TH/MM3 (0-0.9) Eosinophils # (Auto) 0.0 TH/MM3 (0-0.4) Basophils # (Auto) 0.0 TH/MM3 (0-0.2) CBC Comment AUTO DIFF Differential Total Cells 100 Counted Neutrophils % (Manual) 55 % (16-70) Band Neutrophils % 33 % (0-6) Lymphocytes % 5 % (9-44) Monocytes % 7 % (0-8) Neutrophils # (Manual) 10.1 TH/MM3 (1.8-7.7) Nucleated Red Blood Cells 10 /100 WBC (0-0) Differential Comment FINAL DIFF MANUAL Platelet Estimate NORMAL (NORMAL) Platelet Morphology Comment NORMAL (NORMAL) Potassium Level 3.2 MEQ/L (3.5-5.1) Chloride Level 127 MEQ/L (98-107) Carbon Dioxide Level 17.8 MEQ/L (21.0-32.0) Anion Gap 12 MEQ/L (5-15) Blood Urea Nitrogen 19 MG/DL (7-18) Creatinine 0.82 MG/DL (0.60-1.30) Estimat Glomerular Filtration 116 ML/MIN Rate (>89) Random Glucose 63 MG/DL (74-106) Calcium Level 6.8 MG/DL (8.5-10.1) Protein Corrected Calcium 7.9 MG/DL (8.5-10.1) Total Bilirubin 0.8 MG/DL (0.2-1.0) Aspartate Amino Transf 73 U/L (15-37) (AST/SGOT) Alanine Aminotransferase 46 U/L (12-78) (ALT/SGPT) Alkaline Phosphatase 361 U/L (45-117) Total Protein 4.9 GM/DL (6.4-8.2) Albumin 1.6 GM/DL (3.4-5.0) Test 05/30/17 05/30/17 05/30/17 05/30/17 10:30 13:52 13:56 18:26 Vancomycin Level Trough 10.5 MCG/ML (5.0-10.0) Blood Type A POSITIVE Antibody Screen NEGATIVE Crossmatch Leukocyte-Reduced Red Blood Cells Blood Bank Comment Potassium Level 2.9 MEQ/L (3.5-5.1) Sodium Level 158 MEQ/L 157 MEQ/L (136-145) (136-145) Test 05/31/17 05/31/17 05/31/17 05/31/17 03:00 09:55 11:50 19:00 White Blood Count 10.2 TH/MM3 (4.0-11.0) Red Blood Count 2.68 MIL/MM3 (4.50-5.90) Hemoglobin 8.1 GM/DL (13.0-17.0) Hematocrit 24.2 % (39.0-51.0) Mean Corpuscular Volume 90.2 FL (80.0-100.0) Mean Corpuscular Hemoglobin 30.2 PG (27.0-34.0) Mean Corpuscular Hemoglobin 33.5 % Concent (32.0-36.0) Red Cell Distribution Width 17.3 % (11.6-17.2) Platelet Count 124 TH/MM3 (150-450) Mean Platelet Volume 7.8 FL (7.0-11.0) Neutrophils (%) (Auto) 88.4 % (16.0-70.0) Lymphocytes (%) (Auto) 4.8 % (9.0-44.0) Monocytes (%) (Auto) 6.5 % (0.0-8.0) Eosinophils (%) (Auto) 0.0 % (0.0-4.0) Basophils (%) (Auto) 0.3 % (0.0-2.0) Neutrophils # (Auto) 9.0 TH/MM3 (1.8-7.7) Lymphocytes # (Auto) 0.5 TH/MM3 (1.0-4.8) Monocytes # (Auto) 0.7 TH/MM3 (0-0.9) Eosinophils # (Auto) 0.0 TH/MM3 (0-0.4) Basophils # (Auto) 0.0 TH/MM3 (0-0.2) CBC Comment AUTO DIFF Differential Total Cells 100 Counted Neutrophils % (Manual) 66 % (16-70) Band Neutrophils % 20 % (0-6) Lymphocytes % 5 % (9-44) Monocytes % 9 % (0-8) Neutrophils # (Manual) 8.8 TH/MM3 (1.8-7.7) Nucleated Red Blood Cells 7 /100 WBC (0-0) Differential Comment FINAL DIFF MANUAL Toxic Vacuolation PRESENT (NONE SEEN) Dohle Bodies PRESENT (NONE SEEN) Platelet Estimate LOW (NORMAL) Platelet Morphology Comment NORMAL (NORMAL) Ovalocytes (NORMAL) Acanthocytes OCC (NORMAL) Sodium Level 157 MEQ/L 157 MEQ/L 158 MEQ/L (136-145) (136-145) (136-145) Potassium Level 2.9 MEQ/L 3.3 MEQ/L (3.5-5.1) (3.5-5.1) Chloride Level 123 MEQ/L (98-107) Carbon Dioxide Level 20.6 MEQ/L (21.0-32.0) Anion Gap 13 MEQ/L (5-15) Blood Urea Nitrogen 18 MG/DL (7-18) Creatinine 0.88 MG/DL (0.60-1.30) Estimat Glomerular Filtration 107 ML/MIN Rate (>89) Random Glucose 208 MG/DL (74-106) Calcium Level 6.8 MG/DL (8.5-10.1) Protein Corrected Calcium 8.0 MG/DL (8.5-10.1) Total Bilirubin 0.9 MG/DL (0.2-1.0) Aspartate Amino Transf 64 U/L (15-37) (AST/SGOT) Alanine Aminotransferase 44 U/L (12-78) (ALT/SGPT) Alkaline Phosphatase 58 U/L (45-117) Total Protein 4.8 GM/DL (6.4-8.2) Albumin 1.6 GM/DL (3.4-5.0) Blood Gas Puncture Site ART LINE Blood Gas Patient Temperature 98.6 Blood Gas HCO3 19 mmol/L (22-26) Blood Gas Base Excess -6.4 mmol/L (-2-2) Blood Gas Oxygen Saturation 89 % (90-100) Arterial Blood pH 7.29 (7.380-7.420) Arterial Blood Partial 41 mmHg (38-42) Pressure CO2 Arterial Blood Partial 60 mmHg Pressure O2 (61-120) Arterial Blood Oxygen Content 10.3 Vol % (12.0-20.0) Arterial Blood 1.4 % (0-4) Carboxyhemoglobin Arterial Blood Methemoglobin 0.7 % (0-2) Blood Gas Hemoglobin 8.2 G/DL (12.0-16.0) Oxygen Delivery Device VENTILATOR Blood Gas Ventilator Setting AC Blood Gas Inspired Oxygen 80 % Test 06/01/17 06/01/17 06/01/17 06/01/17 04:53 05:00 10:45 12:00 Blood Gas Puncture Site ART LINE Blood Gas Patient Temperature 98.6 Blood Gas HCO3 18 mmol/L (22-26) Blood Gas Base Excess -7.1 mmol/L (-2-2) Blood Gas Oxygen Saturation 92 % (90-100) Arterial Blood pH 7.29 (7.380-7.420) Arterial Blood Partial 40 mmHg (38-42) Pressure CO2 Arterial Blood Partial 72 mmHg Pressure O2 (61-120) Arterial Blood Oxygen Content 10.2 Vol % (12.0-20.0) Arterial Blood 1.5 % (0-4) Carboxyhemoglobin Arterial Blood Methemoglobin 0.6 % (0-2) Blood Gas Hemoglobin 7.8 G/DL (12.0-16.0) Oxygen Delivery Device VENTILATOR Blood Gas Ventilator Setting PRVC26/600/0.75/+12 Blood Gas Inspired Oxygen 90 % White Blood Count 10.8 TH/MM3 (4.0-11.0) Red Blood Count 2.51 MIL/MM3 (4.50-5.90) Hemoglobin 7.6 GM/DL (13.0-17.0) Hematocrit 22.4 % (39.0-51.0) Mean Corpuscular Volume 89.4 FL (80.0-100.0) Mean Corpuscular Hemoglobin 30.2 PG (27.0-34.0) Mean Corpuscular Hemoglobin 33.8 % Concent (32.0-36.0) Red Cell Distribution Width 17.5 % (11.6-17.2) Platelet Count 90 TH/MM3 (150-450) Mean Platelet Volume 8.4 FL (7.0-11.0) Neutrophils (%) (Auto) 88.2 % (16.0-70.0) Lymphocytes (%) (Auto) 4.7 % (9.0-44.0) Monocytes (%) (Auto) 6.8 % (0.0-8.0) Eosinophils (%) (Auto) 0.1 % (0.0-4.0) Basophils (%) (Auto) 0.2 % (0.0-2.0) Neutrophils # (Auto) 9.5 TH/MM3 (1.8-7.7) Lymphocytes # (Auto) 0.5 TH/MM3 (1.0-4.8) Monocytes # (Auto) 0.7 TH/MM3 (0-0.9) Eosinophils # (Auto) 0.0 TH/MM3 (0-0.4) Basophils # (Auto) 0.0 TH/MM3 (0-0.2) CBC Comment AUTO DIFF Differential Total Cells 100 Counted Neutrophils % (Manual) 61 % (16-70) Band Neutrophils % 29 % (0-6) Lymphocytes % 3 % (9-44) Monocytes % 7 % (0-8) Neutrophils # (Manual) 9.7 TH/MM3 (1.8-7.7) Nucleated Red Blood Cells 15 /100 WBC (0-0) Differential Comment FINAL DIFF MANUAL Platelet Estimate LOW (NORMAL) Platelet Morphology Comment NORMAL (NORMAL) Ovalocytes 1+ (NORMAL) Acanthocytes OCC (NORMAL) Sodium Level 159 MEQ/L (136-145) Potassium Level 3.0 MEQ/L 3.4 MEQ/L (3.5-5.1) (3.5-5.1) Chloride Level 126 MEQ/L (98-107) Carbon Dioxide Level 18.6 MEQ/L (21.0-32.0) Anion Gap 14 MEQ/L (5-15) Blood Urea Nitrogen 24 MG/DL (7-18) Creatinine 0.89 MG/DL (0.60-1.30) Estimat Glomerular Filtration 105 ML/MIN Rate (>89) Random Glucose 275 MG/DL (74-106) Calcium Level 7.3 MG/DL (8.5-10.1) Protein Corrected Calcium 8.6 MG/DL (8.5-10.1) Total Protein 4.8 GM/DL (6.4-8.2) Vancomycin Level Trough 20.9 MCG/ML (5.0-10.0) Result Diagram: 06/01/17 0500 06/01/17 1200 Microbiology Microbiology Date/Time Procedure Status Source Growth 05/29/17 00:00 Aerobic Blood Culture - Preliminary Resulted Blood Peripheral NO GROWTH IN 3 DAYS 05/29/17 00:00 Anaerobic Blood Culture - Final Resulted Blood Peripheral QNS - SEE AEROBE REPORT 05/28/17 22:55 Urine Culture - Final Complete Urine Catheterized Urine NO GROWTH IN 48 HOURS. 05/28/17 12:58 Gram Stain - Final Complete Sputum Endotracheal 05/28/17 12:58 Sputum Culture - Final Complete Sputum Endotracheal HEAVY GROWTH NORMAL RESPIRATORY LENIN Imaging Last Impressions Chest X-Ray 06/01/17 0600 Signed Impressions: Service Date/Time: Thursday, June 01, 2017 06:35 - CONCLUSION: Marked worsening in the appearance the chest with increasing airspace disease characteristic of acute pulmonary edema or fulminant pneumonitis. James Blood MD Head CT 05/29/17 0600 Signed Impressions: Service Date/Time: Monday, May 29, 2017 04:38 - CONCLUSION: 1. There continues to be severe traumatic brain injury with areas of parenchymal hemorrhage in the right temporal lobe and right frontal lobe with surrounding edema. 2. Bilateral subarachnoid hemorrhage 3. Cerebral edema 4. Mild midline shift to the left by approximately 3 mm. 5. New area of decreased density in the left cerebellar hemisphere suggestive of an area of nonhemorrhagic infarction. Matthew Hurtado MD Foot X-Ray 05/27/17 0000 Signed Impressions: Service Date/Time: Saturday, May 27, 2017 17:16 - CONCLUSION: Chronic changes and no evidence for acute fracture. Chandrakant Jerry MD Neck CTA 05/26/17 0000 Signed Impressions: Service Date/Time: Friday, May 26, 2017 08:25 - CONCLUSION: No evidence of acute vascular injury, intimal dissection, aneurysm or restricted flow. James Blood MD Pelvis X-Ray 05/25/172317 Signed Impressions: Service Date/Time: Thursday, May 25, 2017 22:55 - CONCLUSION: No discrete fracture lucencies. Andrae Anderson MD Chest CT 05/25/172317 Signed Impressions: Service Date/Time: Thursday, May 25, 2017 23:35 - CONCLUSION: 1. Severe emphysematous changes are noted with bullous emphysematous disease in the upper lobes left greater than right. 2. Patchy pulmonary contusion is suspected. 3. Nonobstructing left renal calculi and bilateral renal cysts. 4. Extensive displaced and comminuted left scapular fractures as well as multiple left- sided rib fractures and T7 transverse process fracture on the left. Andrae Anderson MD Cervical Spine CT 05/25/172317 Signed Impressions: Service Date/Time: Thursday, May 25, 2017 23:26 - CONCLUSION: 1. Fracture through the left occipital condyle and occiput. 2. Left C2 lateral mass nondisplaced fracture. 3. Left sided C7 fractures as described above. Andrae Anderson MD Abdomen/Pelvis CT 05/25/172317 Signed Impressions: Service Date/Time: Thursday, May 25, 2017 23:32 - CONCLUSION: 1. Bilateral renal cysts and nonobstructing left renal calculi. 2. Minimal basilar parenchymal infiltrates at the lung bases. 3. Splenic atrophy. 4. Left L2 and L3 transverse process fractures. 5. Right sacral fracture with diastasis of the SI joint on the right as well as the pubic symphysis. Andrae Anderson MD Tibia/Fibula X-Ray 05/25/17 0000 Signed Impressions: Service Date/Time: Thursday, May 25, 2017 22:55 - CONCLUSION: Heavily comminuted and displaced fractures of the tibia and fibula. Andrae Anderson MD Procedures 05/25/17: Intubated 05/26/17: Marichuy [place] placed, Nimbex gtt started 05/27/17: ventriculostomy placed Assessment and Plan Disease Oriented Problem List: (1) Major neurocognitive disorder as late effect of traumatic brain injury without behavioral disturbance (2) Closed head injury (3) Subarachnoid hemorrhage (4) Pulmonary contusion (5) Traumatic closed displaced fracture of shaft of left tibia and fibula (6) Ribs, multiple fractures (7) C2 cervical fracture (8) C7 cervical fracture (9) L2 vertebral fracture (10) T7 vertebral fracture (11) L3 vertebral fracture (12) Traumatic diastasis of symphysis pubis (13) Fracture of left occipital condyle (14) Sacral fracture (15) Fracture of occiput (16) Left scapula fracture (17) Intraparenchymal hemorrhage of brain (18) Pneumonia (19) COPD (chronic obstructive pulmonary disease) Symptom Scale: (1) Pain 0-10 Scale: Unable to quantify Comment: sedated (2) Dyspnea 0-10 Scale: Unable to quantify Comment: on mech vent FiO2 90% Pertinent Non-Medical Issues Psychosocial: , 2 sons. Supported by 2 sisters and 1 brother. Spiritual:Tenriism is very important to the patient. Family is well supported by local churches. Legal: Patient is incapacitated and not likely to gain capacity. Per [place] statutes, health care proxy decision making falls to his Joselin Loaiza. Ethical issues impacting care: No known concerns at this time. . Important Contacts * Spouse: Joselin Loaiza [phone] * Sister: Dr. Irene Loaiza [phone] * Sister: Jayne Nailsne [phone] * Brother: Mohsen Loaiza [phone] and his Destiny Loaiza [phone] . Prognosis Patient is incapacitated and not likely to regain capacity. Per [place] statutes , legal decision making falls to his . Code Status: Full Code Plan * Patient is incapacitated and not likely to gain capacity. Per [place] statutes , health care proxy decision making falls to his Joselin Loaiza. * FULL CODE * Called family to determine when they may be at the hospital for follow-up conversation, sister Dr. Irene Loaiza indicates family should be arriving around 3 PM. Offered veterans pinning ceremony, she is very pleased. Veterans pinning at 4 PM, family, Dr. Sloan, powerhouse laborer and palliative care aware. * Goals remain aggressive including FULL CODE. * SYMPTOMS: Pain: secondary to accident causing severe brain injury, infarction , multiple bone fractures (C, L, T spine, skull, scapula, ribs, pubis, tib/fib) , intubation. Sedated appears comfortable. Dyspnea: high O2 needs on mech vent. * Palliative care will continue to follow to clarify goals and assist with symptom management. . Attestation To help prompt me to consider important information that might be impacting today's encounter and assessment, information from prior notes written by myself or my colleagues may have been "brought forward" into today's note. My signature on this note, however, is an attestation that I personally performed the exam, history, and/or decision-making noted today, and, unless otherwise indicated, the interactions with patient, family, and staff as well as the review of records all occurred today. I also attest that the listed assessment and stated plan reflect my best clinical judgment today based on the combination of historical information, prior notes, and today's exam/ interactions. When time spent is documented, it refers only to time spent today by the signer, or if indicated, combined time spent today by collaborating physician/nurse practitioner. Kristina Moreno Jun 01, 2017 13:56
[2017-06-01] MEDS: FREE WATER G-TUBE SCH ×2 (14:00→20:04)
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
[2017-06-01] MEDS: MAGNESIUM HYDROXIDE SUSP 30 ML CUP PO SCH (20:03)
--- NOTE | 2017-06-01 22:57 | RADRPT ---
EXAM DATE/TIME: 06/01/2017 22:48 [facility] COMPARISON: No previous studies available for comparison. INDICATIONS : ETT tube exchange. MEDICAL HISTORY : None. SURGICAL HISTORY : None. ENCOUNTER: Initial ACUITY: 1 day PAIN SCORE: Non-responsive. LOCATION: Bilateral chest FINDINGS: Endotracheal tube tip at the inferior margin the clavicles. There is near-complete opacification of t he left hemithorax. There is abnormal lucency at the right lung base new from previous and suspect ri ght pneumothorax. Free intraperitoneal air is felt less likely. There is cardiomegaly. Right lower lo be consolidation. Enteric tube courses beneath the diaphragm. Right subclavian line tip extends acros s midline as before. Tiny left apical pneumothorax suspected. CONCLUSION: Near-complete opacification of left hemithorax identified. A tiny left apical pneumothorax is suspect ed. Abnormal lucency at the right lung base is concerning for a pneumothorax as well, new from previ ous. Right lung consolidation. Andrae Anderson MD on June 01, 2017 at 22:54 Board Certified Radiologist. This report was verified electronically.
[2017-06-01] MEDS ORDERED: RESP: ACETYLCYSTEINE 20% 4 ML NEB NEB ONE (23:45)
[2017-06-02] VITALS (15 sets, daily range): BP systolic 132–138; BP diastolic 54–75; PULSE 98–108; RESP 30–38; TEMP 97.4–99.4; O2SAT 79–100
[2017-06-02] MEDS ORDERED: RESP: ACETYLCYSTEINE 20% 30 ML NEB NEB ONE
[2017-06-02] MEDS: fentaNYL DRIP 250 ML IV SCH ×2 (00:45→18:02)
[2017-06-02] MEDS ORDERED: RESP: ACETYLCYSTEINE 20% 30 ML NEB NEB SCH (00:45)
[2017-06-02] MEDS: PANTOPRAZOLE SODIUM 40 MG VIAL IVP SCH (00:45)
[2017-06-02] MEDS: PHENYLEPHRINE INJ 160 MG in SODIUM CHLORID 0.9% 500 ML INJ 484 ML IV SCH (00:45)
[2017-06-02] MEDS: VANCOMYCIN INJ 2,000 MG in SODIUM CHLORID 0.9% 500 ML INJ 500 ML IV SCH ×2 (00:45→11:15)
--- NOTE | 2017-06-02 01:32 | RADRPT ---
EXAM DATE/TIME: 06/02/2017 01:01 [facility] COMPARISON: CHEST SINGLE AP, June 01, 2017, 6:35. CHEST SINGLE AP, May 28, 2017, 3:40. CHEST SINGLE AP, May 122016, 3:40. CHEST SINGLE AP, May 26, 2017, 1:57. CT THORAX W CONTRAST, May 25, 2017, 23:35. C HEST SINGLE AP, June 01, 2017, 22:48. INDICATIONS : Post bronchoscopy MEDICAL HISTORY : None. SURGICAL HISTORY : None. ENCOUNTER: Subsequent ACUITY: 3 days PAIN SCORE: Non-responsive. LOCATION: Bilateral chest FINDINGS: Endotracheal tube remains situated with tip about 4 cm above the justus. Nasogastric tube descends in to the stomach. Right subclavian central line remains malpositioned, presumably crossing into the con tralateral left brachiocephalic vein. There is improved aeration on the left, however persistent sign ificant bibasilar and perihilar alveolar opacity. Bilateral effusion. Right base pneumothorax. Severe apical bullous changes on the left. Visualized cardiac contours are grossly satisfactory. CONCLUSION: Improved aeration on the left post bronchoscopy. Persistent bilateral infiltrates and effusions. Right base pneumothorax. Malpositioned right subclavian central line Burak Christian MD on June 02, 2017 at 1:25 Board Certified Radiologist. This report was verified electronically.
[2017-06-02] MEDS: PIPERACIL-TAZO 4.5 GM PREMIX 100 ML IV SCH ×4 (03:00→21:54)
[2017-06-02] MEDS: CHLORHEXIDINE GLUCONATE 2 % 1 PACK (2 CLOTHS) TOP SCH (03:34)
--- NOTE | 2017-06-02 03:40 | RADRPT ---
EXAM DATE/TIME: 06/02/2017 03:14 [facility] COMPARISON: CHEST SINGLE AP, June 02, 2017, 1:01. INDICATIONS : Chest tube placement- Right side chest tube MEDICAL HISTORY : None. SURGICAL HISTORY : None. ENCOUNTER: Subsequent ACUITY: 1 week PAIN SCORE: Non-responsive. LOCATION: Bilateral chest FINDINGS: Small caliber right base thoracostomy tube has been placed with complete or near-complete resolution of basilar pneumothorax. Other support lines and tubes are unchanged. There is persistent bilateral p erihilar and basilar infiltrate. Cardiac contours are grossly stable. CONCLUSION: Right base thoracostomy tube present with near complete resolution of basilar pneumothorax Burak Christian MD on June 02, 2017 at 3:37 Board Certified Radiologist. This report was verified electronically.
[2017-06-02] MEDS: VASOPRESSIN INJ 40 UNITS in DEXTROSE 5% IN WATER 100ML INJ 98 ML IV SCH ×2 (04:46)
[2017-06-02] MEDS: FREE WATER G-TUBE SCH ×3 (04:46→21:55)
[2017-06-02 06:05] LABS: MEAN CELL VOLUME 87.3 FL (80.0-100.0); MEAN CORPUSCULAR HEMOGLOBIN 29.3 PG (27.0-34.0); MEAN CORPUSCULAR HGB CONC 33.5 % (32.0-36.0); PLATELET COUNT 30 TH/MM3 (150-450); RED BLOOD COUNT 2.37 MIL/MM3 (4.50-5.90); RED CELL DISTRIBUTION WIDTH 17.2 % (11.6-17.2); WHITE BLOOD COUNT 11.4 TH/MM3 (4.0-11.0)
[2017-06-02 06:17] LABS: REVIEW FLAG FINAL
[2017-06-02 06:19] LABS: HEMATOCRIT 20.7 % (39.0-51.0)
[2017-06-02 06:42] LABS: BICARBONATE 26.4 MEQ/L (21.0-32.0); POTASSIUM 3.3 MEQ/L (3.5-5.1)
[2017-06-02] MEDS: POTASSIUM CHLOR 40 MEQ PREMIX 100 ML IV PRN (06:47)
[2017-06-02] MEDS: INSULIN ASPART SUPPLEMENTAL SCALE SQ SCH ×4 (06:52→21:56)
[2017-06-02 07:04] LABS: CALCIUM-PROTEIN CORRECTED 8.7 MG/DL (8.5-10.1)
[2017-06-02] MEDS: CHLORHEXIDINE 0.12% (ORAL KIT) 15 ML CUP MT SCH ×2 (08:00→21:53)
[2017-06-02] MEDS: ARTIFICIAL TEARS OPTH OINT 3.5 APPLIC/3.5 GM TUBO EACH EYE SCH ×3 (08:28→18:00)
[2017-06-02] MEDS: BACITRACIN/POLYMYXIN B 15 GM TUBE TOPICAL SCH ×2 (08:29→21:54)
[2017-06-02] MEDS: DOCUSATE SODIUM 100 MG CAP PO SCH ×2 (08:29→21:54)
[2017-06-02] MEDS: levETIRAcetam INJ 500 MG in SODIUM CHLORIDE 0.9% INJ 100 ML IV SCH ×2 (08:29→21:53)
[2017-06-02] MEDS: LACTULOSE SYRUP 20 GM/30 ML CUP PO SCH (08:29)
[2017-06-02] MEDS ORDERED: SODIUM CHLOR 0.9% 250 ML INJ 250 ML IV ONE (10:30)
--- NOTE | 2017-06-02 14:05 | HHI.NSPN ---
(Fernando Zacarias) History Chief Complaint: Unable to obtain due to patient's clinical condition. (Fernando Zacarias) Interval History 05/26: Pt sedated speech correction consultant for elevated ICPs which are now controlled with current regimen of Diprivan, Fentanyl, and Nimbex as well as NS 3%. ICP currently 5. Pt has not gone for a follow up CT head. 05/27: Pt sedated on Diprivan, Fentanyl, and Nimbex. ICPs 13 via zuri bolt. Pt on Federico, Levo, and Vaso pressor drips. Intubated. [place] J collar remains in place. 05/28: Pt sedated on Diprivan, Fentanyl, and Versed drips. Off Nimbex drip. ICP9. Ventriculostomy drain and zuri bolt in place Pupils 3mm bilaterally, reactive bilaterally. 05/29: Pt sedated on Fentanyl and Versed drips. ICP 12-16 range. Pupils 3mm bilaterally. Reactive bilaterally. Not following commands. Pt on Neosynephrine, Vasopressin, and Levophed to keep CPP greater than 60 05/30: Pt sedated on Fentanyl and versed drips. ICP 9. Right pupil 3 mm left pupil 2.5 mm. Right pupil reactive left pupil questionable reactive. Not following commands. Patient remains on Federico-Synephrine vasopressin we will drips to keep CPP greater than 60. 05/31: Pt sedated on Fentanyl and Versed drips. Not opening eyes. Pupils 3mm bilaterally right reactive left NR. Not following commands. 06/01: Pt sedated on Fentanyl and Versed drips. Not opening eyes. Pupils 3mm right slight reaction. Left NR. Not following commands. 06/02: Patient is nonresponsive with only a fentanyl drip infusing at 250 mcg/ hr. He is on vasopressin at 6 mL/hr and phenylephrine at 40 mcg/min for blood pressure support. (Fernando Zacarias) System Review Comments Unable to obtain due to patient's clinical condition. (Fernando Zacarias) Exam Results Vital Signs Date Time Temp Pulse Resp B/P Pulse Ox O2 Delivery O2 Flow Rate FiO2 06/02/17 12:00 99.4 106 34 133/54 100 06/02/17 12:00 100 Intake and Output 06/01/17 06/01/17 06/02/17 08:00 16:00 00:00 Intake Total 1832 ml 2568 ml 1063 ml Output Total 1208 ml 1360 ml 910 ml Balance 624 ml 1208 ml 153 ml (Fernando Zacarias) Physical Examination GENERAL: The patient is nonresponsive and on a fentanyl drip at 250 mcg/hr. SKIN: Multiple wounds dressed. Fingers and toes cold and necrotic. HEENT: Dressing intact to right parietal scalp wound. Pupils equal, round 3 mm, right reactive, left nonreactive. Orally intubated, OGT. NECK: [place] J cervical collar in place, no JVD, trachea midline. CARDIOVASCULAR: S1S2 w/RRR w/o M/G/R, radial pulses 2+ bilaterally but unable to palpate pedal or posterior tibial, cap refill > 2 sec, generalised dependent edema. Monitor is sinus rhythm to sinus tachycardia w/o any ectopy noted. On phenylephrine drip at 40 mcg/min and vasopressin at 6 mL/hr. RESPIRATORY: Slightly coarse bilaterally w/slight expiratory wheeze noted on right, equal excursion, nonlaboured, orally intubated & mechanically ventilated on pressure control support, breathing above set rate. GASTROINTESTINAL: Abdomen distended, positive bowel sounds, PEG tube w/enteral feeds. MUSCULOSKELETAL: No movement of extremities, splint to LLE. NEUROLOGICAL: Nonresponsive, only on fentanyl drip, GCS 3T (E1 V1T M1) Does not follow commands PERRL 3 mm w/right reactive but left nonreactive Unable to assess sensation due to mental status No response to localised or central noxious stimuli Ventriculostomy at 5 cm H2O pressure w/clear reddish CSF draining ICP 4-6 (Fernando Zacarias) Lab, Micro, Other Results Allergies Coded Allergies Type Severity Reaction Last Updated Verified Iodine Allergy Unknown 05/26/17 Yes Recent Impressions Chest X-Ray 06/02/17 0000 Signed Impressions: Service Date/Time: Friday, June 02, 2017 03:14 - CONCLUSION: Right base thoracostomy tube present with near complete resolution of basilar pneumothorax Burak Christian MD Chest X-Ray 06/01/17 0600 Signed Impressions: Service Date/Time: Thursday, June 01, 2017 06:35 - CONCLUSION: Marked worsening in the appearance the chest with increasing airspace disease characteristic of acute pulmonary edema or fulminant pneumonitis. James Blood MD Chest X-Ray 06/01/17 0000 Signed Impressions: Service Date/Time: Friday, June 02, 2017 01:01 - CONCLUSION: Improved aeration on the left post bronchoscopy. Persistent bilateral infiltrates and effusions. Right base pneumothorax. Malpositioned right subclavian central line Burak Christian MD Chest X-Ray 06/01/17 0000 Signed Impressions: Service Date/Time: Thursday, June 01, 2017 22:48 - CONCLUSION: Near-complete opacification of left hemithorax identified. A tiny left apical pneumothorax is suspected. Abnormal lucency at the right lung base is concerning for a pneumothorax as well, new from previous. Right lung consolidation. Andrae Anderson MD /// 05:59 17:59 05:59 17:59 05:59 17:59 Intake Total 2015 ml 4527 ml 1735 ml 4400 ml 1063 ml 1510 ml Output Total 3564 ml 2844 ml 1307 ml 2568 ml 910 ml 1035 ml Balance -1548 ml 1683 ml 428 ml 1832 ml 153 ml 475 ml Intake IV Total 2015 ml 4504 ml 1735 ml 3836 ml 1063 ml 1110 ml Tube Feeding 164 ml TPN/PPN 23 ml Tube Irrigant 400 ml Other 400 ml Output Urine Total 3550 ml 2800 ml 1300 ml 2550 ml 900 ml 750 ml Chest Tube Drainage Total 280 ml Drainage Total 14 ml 44 ml 7 ml 18 ml 10 ml 5 ml # Bowel Movements 0 0 0 2 2 1 Laboratory Tests Test 05/30/17 05/31/17 05/31/17 05/31/17 18:26 03:00 09:55 11:50 Sodium Level 157 MEQ/L 157 MEQ/L 157 MEQ/L White Blood Count 10.2 TH/MM3 Red Blood Count 2.68 MIL/MM3 Hemoglobin 8.1 GM/DL Hematocrit 24.2 % Mean Corpuscular Volume 90.2 FL Mean Corpuscular Hemoglobin 30.2 PG Mean Corpuscular Hemoglobin 33.5 % Concent Red Cell Distribution Width 17.3 % Platelet Count 124 TH/MM3 Mean Platelet Volume 7.8 FL Neutrophils (%) (Auto) 88.4 % Lymphocytes (%) (Auto) 4.8 % Monocytes (%) (Auto) 6.5 % Eosinophils (%) (Auto) 0.0 % Basophils (%) (Auto) 0.3 % Neutrophils # (Auto) 9.0 TH/MM3 Lymphocytes # (Auto) 0.5 TH/MM3 Monocytes # (Auto) 0.7 TH/MM3 Eosinophils # (Auto) 0.0 TH/MM3 Basophils # (Auto) 0.0 TH/MM3 CBC Comment AUTO DIFF Differential Total Cells 100 Counted Neutrophils % (Manual) 66 % Band Neutrophils % 20 % Lymphocytes % 5 % Monocytes % 9 % Neutrophils # (Manual) 8.8 TH/MM3 Nucleated Red Blood Cells 7 /100 WBC Differential Comment FINAL DIFF MANUAL Toxic Vacuolation PRESENT Dohle Bodies PRESENT Platelet Estimate LOW Platelet Morphology Comment NORMAL Ovalocytes Acanthocytes OCC Potassium Level 2.9 MEQ/L 3.3 MEQ/L Chloride Level 123 MEQ/L Carbon Dioxide Level 20.6 MEQ/L Anion Gap 13 MEQ/L Blood Urea Nitrogen 18 MG/DL Creatinine 0.88 MG/DL Estimat Glomerular Filtration 107 ML/MIN Rate Random Glucose 208 MG/DL Calcium Level 6.8 MG/DL Protein Corrected Calcium 8.0 MG/DL Total Bilirubin 0.9 MG/DL Aspartate Amino Transf 64 U/L (AST/SGOT) Alanine Aminotransferase 44 U/L (ALT/SGPT) Alkaline Phosphatase 58 U/L Total Protein 4.8 GM/DL Albumin 1.6 GM/DL Blood Gas Puncture Site ART LINE Blood Gas Patient Temperature 98.6 Blood Gas HCO3 19 mmol/L Blood Gas Base Excess -6.4 mmol/L Blood Gas Oxygen Saturation 89 % Arterial Blood pH 7.29 Arterial Blood Partial 41 mmHg Pressure CO2 Arterial Blood Partial 60 mmHg Pressure O2 Arterial Blood Oxygen Content 10.3 Vol % Arterial Blood 1.4 % Carboxyhemoglobin Arterial Blood Methemoglobin 0.7 % Blood Gas Hemoglobin 8.2 G/DL Oxygen Delivery Device VENTILATOR Blood Gas Ventilator Setting AC Blood Gas Inspired Oxygen 80 % Test 05/31/17 06/01/17 06/01/17 06/01/17 19:00 04:53 05:00 10:45 Sodium Level 158 MEQ/L 159 MEQ/L Blood Gas Puncture Site ART LINE Blood Gas Patient Temperature 98.6 Blood Gas HCO3 18 mmol/L Blood Gas Base Excess -7.1 mmol/L Blood Gas Oxygen Saturation 92 % Arterial Blood pH 7.29 Arterial Blood Partial 40 mmHg Pressure CO2 Arterial Blood Partial 72 mmHg Pressure O2 Arterial Blood Oxygen Content 10.2 Vol % Arterial Blood 1.5 % Carboxyhemoglobin Arterial Blood Methemoglobin 0.6 % Blood Gas Hemoglobin 7.8 G/DL Oxygen Delivery Device VENTILATOR Blood Gas Ventilator Setting PRVC26/600/0.75/+12 Blood Gas Inspired Oxygen 90 % White Blood Count 10.8 TH/MM3 Red Blood Count 2.51 MIL/MM3 Hemoglobin 7.6 GM/DL Hematocrit 22.4 % Mean Corpuscular Volume 89.4 FL Mean Corpuscular Hemoglobin 30.2 PG Mean Corpuscular Hemoglobin 33.8 % Concent Red Cell Distribution Width 17.5 % Platelet Count 90 TH/MM3 Mean Platelet Volume 8.4 FL Neutrophils (%) (Auto) 88.2 % Lymphocytes (%) (Auto) 4.7 % Monocytes (%) (Auto) 6.8 % Eosinophils (%) (Auto) 0.1 % Basophils (%) (Auto) 0.2 % Neutrophils # (Auto) 9.5 TH/MM3 Lymphocytes # (Auto) 0.5 TH/MM3 Monocytes # (Auto) 0.7 TH/MM3 Eosinophils # (Auto) 0.0 TH/MM3 Basophils # (Auto) 0.0 TH/MM3 CBC Comment AUTO DIFF Differential Total Cells 100 Counted Neutrophils % (Manual) 61 % Band Neutrophils % 29 % Lymphocytes % 3 % Monocytes % 7 % Neutrophils # (Manual) 9.7 TH/MM3 Nucleated Red Blood Cells 15 /100 WBC Differential Comment FINAL DIFF MANUAL Platelet Estimate LOW Platelet Morphology Comment NORMAL Ovalocytes 1+ Acanthocytes OCC Potassium Level 3.0 MEQ/L Chloride Level 126 MEQ/L Carbon Dioxide Level 18.6 MEQ/L Anion Gap 14 MEQ/L Blood Urea Nitrogen 24 MG/DL Creatinine 0.89 MG/DL Estimat Glomerular Filtration 105 ML/MIN Rate Random Glucose 275 MG/DL Calcium Level 7.3 MG/DL Protein Corrected Calcium 8.6 MG/DL Total Protein 4.8 GM/DL Vancomycin Level Trough 20.9 MCG/ML Test 06/01/17 06/01/17 06/02/1706/02/17 12:00 19:20 05:00 05:05 Sodium Level 161 MEQ/L 161 MEQ/L 162 MEQ/L Potassium Level 3.4 MEQ/L 3.3 MEQ/L White Blood Count 11.4 TH/MM3 Red Blood Count 2.37 MIL/MM3 Hemoglobin 6.9 GM/DL Hematocrit 20.7 % Mean Corpuscular Volume 87.3 FL Mean Corpuscular Hemoglobin 29.3 PG Mean Corpuscular Hemoglobin 33.5 % Concent Red Cell Distribution Width 17.2 % Platelet Count 30 TH/MM3 Mean Platelet Volume 6.1 FL Chloride Level 127 MEQ/L Carbon Dioxide Level 26.4 MEQ/L Anion Gap 9 MEQ/L Blood Urea Nitrogen 31 MG/DL Creatinine 0.90 MG/DL Estimat Glomerular Filtration 104 ML/MIN Rate Random Glucose 242 MG/DL Calcium Level 7.2 MG/DL Protein Corrected Calcium 8.7 MG/DL Total Protein 4.5 GM/DL Test 06/02/17 06/02/17 08:57 11:20 Blood Bank Comment Sodium Level 161 MEQ/L Blood Type A POSITIVE Antibody Screen NEGATIVE Crossmatch Leukocyte-Reduced Red Blood Cells Vital Signs Date Time Temp Pulse Resp B/P Pulse Ox O2 Delivery O2 Flow Rate FiO2 06/02/17 12:00 99.4 106 34 133/54 100 06/02/17 12:00 100 133/54 06/02/17 12:00 106 06/02/17 12:00 100 06/02/17 10:00 108 06/02/17 08:37 100 100 06/02/17 08:00 100 132/58 06/02/17 08:00 100 06/02/17 08:00 104 06/02/17 08:00 99.2 104 34 132/58 100 06/02/17 04:20 100 100 06/02/17 04:00 97.8 99 33 133/62 100 06/02/17 04:00 100 133/62 06/02/17 04:00 90 06/02/17 01:50 100 100 06/02/17 00:00 97.4 100 137/75 79 06/02/17 00:00 90 06/01/17 21:26 100 90 06/01/17 20:00 98 06/01/17 20:00 98.6 96 28 126/64 100 06/01/17 20:00 90 06/01/17 18:00 96 06/01/17 17:25 100 90 06/01/17 16:00 97.3 91 29 137/60 100 06/01/17 16:00 100 137/60 06/01/17 16:00 90 06/01/17 16:00 94 06/01/17 14:00 93 06/01/17 12:00 100 135/58 06/01/17 12:00 98 06/01/17 12:00 98.1 98 30 135/58 92 06/01/17 12:00 90 06/01/17 10:00 103 06/01/17 09:10 99 90 06/01/17 08:00 103 06/01/17 08:00 100 139/60 06/01/17 08:00 90 06/01/17 08:00 99.2 102 28 139/60 100 06/01/17 04:16 100 90 06/01/17 04:00 100 108/48 06/01/17 04:00 90 06/01/17 04:00 98.6 98 28 130/56 99 06/01/17 01:19 100 90 06/01/17 00:00 100 108/48 06/01/17 00:00 90 06/01/17 00:00 97.4 100 28 129/55 100 05/31/17 22:21 100 90 05/31/17 20:22 100 90 05/31/17 20:00 100 108/48 05/31/17 20:00 98.0 102 29 108/48 99 2017 20:00 90 05/31/17 20:00 104 05/31/17 18:00 101 2017 16:15 99 90 05/31/17 16:00 97.7 100 30 120/52 99 2017 16:00 100 120/52 17 16:00 90 05/31/17 16:00 100 05/31/17 14:38 99 90 05/31/17 14:00 100 05/31/17 12:00 104 05/31/17 12:00 100 121/50 05/31/17 12:00 99.0 104 28 121/50 99 17 12:00 90 05/31/17 11:38 99 80 05/31/17 10:00 102 05/31/17 08:22 95 80 05/31/17 08:00 80 05/31/17 08:00 100 110/54 05/31/17 08:00 100 05/31/17 08:00 98.8 100 24 110/54 97 Automatic Cuff 05/31/17 04:18 100 90 05/31/17 04:00 90 05/31/17 04:00 97.0 98 23 99 108/48 05/31/17 01:16 100 90 05/31/17 00:00 99.7 108 26 100 113/52 05/31/17 00:00 90 05/30/17 21:41 100 90 05/30/17 20:00 101 05/30/17 20:00 97.8 102 26 98 98/46 05/30/17 20:00 90 05/30/17 18:00 100 05/30/17 18:00 100 105/51 05/30/17 16:35 96 90 05/30/17 16:00 90 05/30/17 16:00 97.8 102 26 96 122/50 05/30/17 16:00 102 05/30/17 15:57 97.0 103 28 120/49 96 (Fernando Zacarias) Medical Decision Making Impression and Plan Impression and 62 y/o M with severe TBI with small right SDH and multiple cerebral contusions. ICPs currently controlled with fentanyl Vasopressin and Neosynephrine to keep CPP greater than 60 Sodium 161 Patient nonresponsive, poor prognosis for any meaningful neurological recovery Plan: Frequent neuro checks Continue to monitor ICP monitor and control with sedation (fentanyl & midazolam drips) Continue critical care management (Fernando Zacarias) Attending Statement I have personally seen and examined the patient on the date of this note. Pertinent documentation and study results have been reviewed by the undersigned. I have personally developed the treatment plan and performed medical decision making. Agree with findings, exam, and treatment plan as noted above. Patient remains intubated. On IV fentanyl for uncontrolled. External ventricular drain remains in place with blood-tinged CSF output. ICPs up to 14. Remains mostly unresponsive, slight turning of his head when stimulated. Persistent moderate upper and lower extremity edema. Splint in place on the left lower extremity. Systolic blood pressure presently in the 130s He is receiving packed red blood cells No overall improvement in neurologic status. Continue external ventricular drain. Palliative care is following (Antwan Vail MD) Fernando Zacarias Jun 02, 2017 14:05 Antwan Vail MD Jun 02, 2017 15:01
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
[2017-06-02 18:52] LABS: POTASSIUM 3.4 MEQ/L (3.5-5.1)
[2017-06-02] MEDS: MAGNESIUM HYDROXIDE SUSP 30 ML CUP PO SCH (21:54)
--- NOTE | 2017-06-02 22:31 | PD.PROCEDR ---
Procedure Note Procedure Bronchoscopy The bronchoscope was advanced through the ETT into justus, which was sharp. Then advanced into the left main stem and each segment, subsegement in the left upper lingula and lower lobe was visualized. There was mild tracheobronchitis with mild friability throughout. There was significant amounts of white/ hemorrhagic secretion. There was large mucous plaque with blood clot on top obstructing the whole left main bronchus. This was removed by washing and suctioning repeatedly. The right upper lobe anatomy showed some segmental distortion with dilation and irregularities both at the apical region as well as in the subsegments of the anteroapical and posterior segments. No specific masses or other lesions were identified throughout the tracheobronchial tree on the right. There was mild tracheal bronchitis with friability. Upon coughing, there was punctate hemorrhage. The bronchoscope was then advanced through the bronchus intermedius and the right middle lobe and right lower lobe. These again had no other anatomic lesions identified. The patient tolerated the procedure well without evidence of desaturation or complications. Chacho Blue MD Jun 02, 2017 22:31
--- NOTE | 2017-06-02 22:31 | PD.PROCEDR ---
Procedure Note Procedure Procedure: CHEST TUBE Indication: Large pneumothorax Performed by: Chacho Dumont time out procedure was performed Initials Consent obtained JV Correct patient JV Correct procedure JV Correct site JV Correct positioning JV Correct supplies JV Patient was positioned, prepped and draped in usual sterile fashion. ccs 1% Lidocaine was used to anesthetize the area. An incision was made and blunt dissection was performed and curved forceps were used to enter the pleural space. A 10 fr chest tube was placed to 15cm. The tube was secured and taped. A chest xray was ordered to evaluate for placement of the chest tube. A pigtail catheter was placed using the seldinger technique. Initial Fluid Removed: 50 Patient tolerated the procedure well and there were no complications. Chacho Blue MD Jun 02, 2017 22:31
[2017-06-03] VITALS (17 sets, daily range): BP systolic 92–134; BP diastolic 52–78; PULSE 96–107; RESP 26; TEMP 97.7–101; O2SAT 95–100
[2017-06-03] MEDS: VANCOMYCIN INJ 2,000 MG in SODIUM CHLORID 0.9% 500 ML INJ 500 ML IV SCH ×2 (00:22→10:59)
[2017-06-03] MEDS: PANTOPRAZOLE SODIUM 40 MG VIAL IVP SCH (00:22)
[2017-06-03] MEDS: POTASSIUM CHLOR 40 MEQ PREMIX 100 ML IV PRN (01:40)
[2017-06-03] MEDS ORDERED: DEXTROSE 5% IN WATE 1000ML INJ 1,000 ML IV SCH (03:30)
[2017-06-03] MEDS: PIPERACIL-TAZO 4.5 GM PREMIX 100 ML IV SCH ×4 (03:32→20:19)
[2017-06-03] MEDS: fentaNYL DRIP 250 ML IV SCH ×2 (03:32→14:10)
[2017-06-03] MEDS: CHLORHEXIDINE GLUCONATE 2 % 1 PACK (2 CLOTHS) TOP SCH (04:00)
[2017-06-03 05:46] LABS: HEMATOCRIT 25.9 % (39.0-51.0)
[2017-06-03 05:53] LABS: REVIEW FLAG FINAL
[2017-06-03] MEDS: INSULIN ASPART SUPPLEMENTAL SCALE SQ SCH ×4 (07:00→20:18)
[2017-06-03] MEDS: FREE WATER G-TUBE SCH ×2 (07:42→14:00)
[2017-06-03] MEDS: CHLORHEXIDINE 0.12% (ORAL KIT) 15 ML CUP MT SCH ×2 (08:00→20:28)
[2017-06-03] MEDS: ACETAMINOPHEN 1000 MG/100 ML VIAL IV PRN (08:31)
[2017-06-03] MEDS: levETIRAcetam INJ 500 MG in SODIUM CHLORIDE 0.9% INJ 100 ML IV SCH ×2 (08:31→20:18)
[2017-06-03] MEDS: ARTIFICIAL TEARS OPTH OINT 3.5 APPLIC/3.5 GM TUBO EACH EYE SCH ×3 (08:32→18:00)
[2017-06-03] MEDS: LACTULOSE SYRUP 20 GM/30 ML CUP PO SCH (08:32)
[2017-06-03] MEDS: BACITRACIN/POLYMYXIN B 15 GM TUBE TOPICAL SCH ×2 (08:32→20:19)
[2017-06-03] MEDS: DOCUSATE SODIUM 100 MG CAP PO SCH ×2 (08:32→20:28)
[2017-06-03 09:14] LABS: HEMATOCRIT 25.5 % (39.0-51.0); MEAN CORPUSCULAR HEMOGLOBIN 29.8 PG (27.0-34.0); MEAN CORPUSCULAR HGB CONC 33.5 % (32.0-36.0); PLATELET COUNT 65 TH/MM3 (150-450); RED BLOOD COUNT 2.87 MIL/MM3 (4.50-5.90); RED CELL DISTRIBUTION WIDTH 17.8 % (11.6-17.2); WHITE BLOOD COUNT 15.6 TH/MM3 (4.0-11.0)
[2017-06-03 09:16] LABS: REVIEW FLAG FINAL
[2017-06-03] MEDS ORDERED: PHARMACY ORDERED LAB ONE (10:45)
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
[2017-06-03] MEDS: PHENYLEPHRINE INJ 160 MG in SODIUM CHLORID 0.9% 500 ML INJ 484 ML IV SCH ×2 (13:00→21:28)
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
[2017-06-03 17:45] LABS: BACTERIA, URINE FEW /hpf; BLOOD, URINE LARGE (NEG); GLUCOSE,URINE 1000 mg/dL (NEG); KETONE, URINE 10 mg/dL (NEG); NITRITE,URINE NEG (NEG); URINE COLOR YELLOW (YELLW/STRAW)
[2017-06-03 17:50] LABS: COMMENT (UR) CATH-CULTURE IND; CULTURE IF INDICATED CATH CULTURE IND
[2017-06-03] MEDS: MAGNESIUM HYDROXIDE SUSP 30 ML CUP PO SCH (20:28)
[2017-06-03] MEDS: NOREPINEPHRINE INJ 16 MG in SODIUM CHLOR 0.9% 250 ML INJ 234 ML IV SCH (21:28)
[2017-06-03 23:07] LABS: BICARBONATE 23.3 MEQ/L (21.0-32.0); POTASSIUM 4.1 MEQ/L (3.5-5.1)
[2017-06-03 23:21] LABS: CALCIUM-PROTEIN CORRECTED 8.2 MG/DL (8.5-10.1)
[2017-06-04] MEDS ORDERED: ALBUMIN HUMAN 5% 25 GM/500 ML BOTTLE IV SCH (00:45)
[2017-06-04] MEDS ORDERED: MILRINONE INJ 20 MG in SODIUM CHLORIDE 0.9% INJ 80 ML IV SCH (01:42)
--- NOTE | 2017-06-04 01:59 | RADRPT ---
EXAM DATE/TIME: 06/04/2017 01:28 [facility] COMPARISON: CHEST SINGLE AP, June 02, 2017, 3:14. INDICATIONS : Respiratory failure s/p code blue MEDICAL HISTORY : None. SURGICAL HISTORY : None. ENCOUNTER: Subsequent ACUITY: 1 week PAIN SCORE: 8/10 LOCATION: Bilateral chest FINDINGS: Portable AP view of the chest demonstrates a normal-sized cardiac silhouette. Nasogastric tube course s beyond the GE junction an endotracheal tube tip measures 4.5 cm from the justus. Right subclavian c entral line tip is unchanged and crosses the midline to extend into the left brachiocephalic vein. Th ere is a small bore right pigtail chest tube in the inferior right hemithorax. It has been retracted. No pneumothorax is identified. There is mid and lower lung zone airspace consolidation bilaterally w ith pleural-based opacities. CONCLUSION: 1. No significant change is identified. However, the right chest tube has been retracted slightly. 2. Stable bilateral mid and lower lung zone airspace consolidation with suspected small bilateral ple ural effusions. Burak Bonds MD on June 04, 2017 at 1:56 Board Certified Radiologist. This report was verified electronically.
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
== END 2017-06-04 04:32 | disposition expired | DRG 955 ==
LOC: NEPI 22:52 → EDBD 23:23 → NEDA 23:23 → N03B 23:58
PROVIDERS: ADMIT Surgery; ATTEND Surgery
PROC: 4A103BD Monitoring of Intracranial Pressure, Percutaneous Approach (ICD-10-PCS; principal; 2017-05-25)
PROC: 00H032Z Insertion of Monitoring Device into Brain, Percutaneous Approach (ICD-10-PCS; 2017-05-25)
PROC: 5A1955Z Respiratory Ventilation, Greater than 96 Consecutive Hours (ICD-10-PCS; 2017-05-26)
PROC: 02HV33Z Insertion of Infusion Device into Superior Vena Cava, Percutaneous Approach (ICD-10-PCS; 2017-05-26)
PROC: 03HY32Z Insertion of Monitoring Device into Upper Artery, Percutaneous Approach (ICD-10-PCS; 2017-05-26)
PROC: 0BH17EZ Insertion of Endotracheal Airway into Trachea, Via Natural or Artificial Opening (ICD-10-PCS; 2017-05-26)
PROC: 009630Z Drainage of Cerebral Ventricle with Drainage Device, Percutaneous Approach (ICD-10-PCS; 2017-05-27)
PROC: 03HY32Z Insertion of Monitoring Device into Upper Artery, Percutaneous Approach (ICD-10-PCS; 2017-06-02)
PROC: 0BC78ZZ Extirpation of Matter from Left Main Bronchus, Via Natural or Artificial Opening Endoscopic (ICD-10-PCS; 2017-06-02)
PROC: 0W9930Z Drainage of Right Pleural Cavity with Drainage Device, Percutaneous Approach (ICD-10-PCS; 2017-06-02)
DX: S06.6X9A Traumatic subarachnoid hemorrhage with loss of consciousness of unspecified duration, initial encounter (principal); S32.10XA Unspecified fracture of sacrum, initial encounter for closed fracture; S22.42XA Multiple fractures of ribs, left side, initial encounter for closed fracture; J96.00 Acute respiratory failure, unspecified whether with hypoxia or hypercapnia; R65.21 Severe sepsis with septic shock; S12.101A Unspecified nondisplaced fracture of second cervical vertebra, initial encounter for closed fracture; A41.9 Sepsis, unspecified organism; S12.600A Unspecified displaced fracture of seventh cervical vertebra, initial encounter for closed fracture; S12.601A Unspecified nondisplaced fracture of seventh cervical vertebra, initial encounter for closed fracture; S32.029A Unspecified fracture of second lumbar vertebra, initial encounter for closed fracture; J18.9 Pneumonia, unspecified organism; S22.069A Unspecified fracture of T7-T8 vertebra, initial encounter for closed fracture; S82.252A Displaced comminuted fracture of shaft of left tibia, initial encounter for closed fracture; S32.039A Unspecified fracture of third lumbar vertebra, initial encounter for closed fracture; T17.590A Other foreign object in bronchus causing asphyxiation, initial encounter; J80 Acute respiratory distress syndrome; S27.322A Contusion of lung, bilateral, initial encounter; J93.9 Pneumothorax, unspecified; S06.1X9A Traumatic cerebral edema with loss of consciousness of unspecified duration, initial encounter; S06.5X9A Traumatic subdural hemorrhage with loss of consciousness of unspecified duration, initial encounter; S82.452A Displaced comminuted fracture of shaft of left fibula, initial encounter for closed fracture; S01.01XA Laceration without foreign body of scalp, initial encounter; S42.102A Fracture of unspecified part of scapula, left shoulder, initial encounter for closed fracture; F02.80 Dementia in other diseases classified elsewhere, unspecified severity, without behavioral disturbance, psychotic disturbance, mood disturbance, and anxiety; S02.113A Unspecified occipital condyle fracture, initial encounter for closed fracture; F10.10 Alcohol abuse, uncomplicated; F14.10 Cocaine abuse, uncomplicated; F12.10 Cannabis abuse, uncomplicated; E11.9 Type 2 diabetes mellitus without complications; J44.9 Chronic obstructive pulmonary disease, unspecified; G47.30 Sleep apnea, unspecified; V23.4XXA Motorcycle driver injured in collision with car, pick-up truck or van in traffic accident, initial encounter; Y92.410 Unspecified street and highway as the place of occurrence of the external cause
CPT/HCPCS: 36430; 36556; 61210; 70450; 70498; 71010; 71260; 72125; 72170; 73630; 74177; 80048; 80053; 80202; 80307; 81001; 82435; 82533; 82565; 82805; 82947; 82948; 83735; 83930; 84100; 84132; 84155; 84295; 84520; 85007; 85014; 85018; 85025; 85027; 85610; 85730; 86850; 86900; 86901; 86920; 86965; 87040; 87070; 87086; 87205; 87641; 94002; 94003; 94640; 94664; 94770; 95819; C9113; J0131; J0171; J0461; J0610; J0690; J1815; J1953; J2150; J2250; J2370; J2543; J2997; J3010; J3370; J3480; J7030; J7040; J7050; J7070; J7608; L0172; P9016; P9035; P9045; Q9967